=== PATIENT | male | born 1935 | race Caucasian/White ===

== ENCOUNTER 2017-03-29 18:24 | Inpatient (IN) | payer OTHER ==
[~2017-03-29] VITALS: Ht 172.7 cm; Wt 89.4 kg
--- NOTE | 2017-03-29 18:46 | ED GENERAL ADULT ---
See Addendum History of Present Illness General Chief Complaint: General Adult Stated Complaint: BIBA FOR WEAKNESS, NAUSEA Source: patient, family, old records, EMS Exam Limitations: no limitations Vital Signs & Intake/Output Vital Signs & Intake/Output Vital Signs Date Time Temp Pulse Resp B/P B/P Pulse O2 O2 Flow FiO2 Mean Ox Delivery Rate 04/06 0000 Room Air 04/05 2151 75 110/64 04/05 2143 94 Room Air Room Air 04/05 2138 98.3 76 18 110/64 95 04/05 1422 97.6 74 20 108/62 96 Room Air 04/05 1013 76 110/62 04/05 1013 76 110/62 04/05 0600 98.1 76 18 110/62 96 Room Air ED Intake and Output 04/06 0000 04/05 1200 Intake Total 1875 446 Output Total 2850 780 Balance -975 -334 Intake, IV 125 206 Intake, Oral 1750 240 Number 0 Bowel Movements Output, Other 30 Output, Urine 2850 750 Patient 199 lb Weight Allergies Coded Allergies: NO KNOWN ALLERGIES (12/30/12) Reconcile Medications Atorvastatin Calcium (Lipitor) 80 MG TABLET 1 TAB PO QPM CHOLESTEROL ( Reported) Carvedilol (Coreg) 6.25 MG TABLET 1 TAB PO BID HEART/BP (Reported) Dofetilide (Tikosyn) 250 MCG CAPSULE 1 CAP PO BID HEART (Reported) Furosemide (Lasix) 20 MG TABLET 1 TAB PO QAM DIURETIC (Reported) Isosorbide Mononitrate (Isosorbide Mononitrate ER) 60 MG TAB.ER.24H 1 TAB PO DAILY HEART (Reported) Lisinopril 2.5 MG TABLET 1 TAB PO QAM BP (Reported) Magnesium Oxide (Magnesium) 400 MG CAPSULE 1 CAP PO QAM SUPPLEMENT (Reported) Multivit-Min/FA/Lycopen/Lutein (A Thru Z Select Multivit Tab) 500 MCG-300 MCG- 250 MCG TABLET 1 TAB PO DAILY SUPPLEMENT (Reported) Warfarin Sodium (Coumadin) 4 MG TABLET 1 TAB PO MoTuWeThFrSa BLOOD THINNER ( Reported) Warfarin Sodium 2 MG TABLET 1 TAB PO QSUN BLOOD THINNER (Reported) Triage Note: RECEIVED 81 YO MALE BIBA FROM HOME WITH C/O SEVERE WEAKNESS STARTED TODAY, WORSE WITH STANDING WITH LIGHTHEADEDNESS. PT PALE, DIAPHORETIC, DENIES CP OR SOB. PT RECEIVED ONE S/L NTG FROM SON WITH NO EFFECT ON SYMPTOMS. B/P 90/50 AFTER RECEIVING NTG. PT REPORTS 2 EPISODES OG PAIN BELOW STERNAL NOTCH, ONCE YESTERDAY AND ONCE 2 WEEKS AGO FOR WHICH HE WAS SEEN AT [facility] Triage Nurses Notes Reviewed? yes Onset: Gradual Duration: day(s): (2) Timing: remote history Injury Environment: home Severity: moderate Severity Numbers: 6 No Modifying Factors: none HPI: Patient is a 81-year-old male with extensive cardiac history, CAD, aortic stenosis presenting to the emergency department with chief complaint of generalized malaise and weakness, episode of chest pain that lasted several hours yesterday. He describes the pain as epigastric, achy and heavy. Pain went away after he went to bed. No chest pain today. Reports shortness of breath is worse with exertion. Today nature though which seemed to improve symptoms. Denies any increasing lower Shoney's swelling. Family reports that he did cut the lawn outside yesterday in the heat and symptoms started afterwards. Denies any fevers or chills. Positive nausea no vomiting. No current chest pain. Yesterday the chest pain did radiate to the back as well. Denies any change in bowel habits. Last bowel movement was yesterday. Denies any urinary frequency urgency or dysuria. (LEONARDA CRYSTAL) Past History Travel History Traveled to [place] past 21 day No Medical History Any Pertinent Medical History? see below for history Neurological: NONE EENT: NONE Cardiovascular: AFIB, CAD, hypertension Gastrointestinal: NONE Hepatic: NONE Renal: NONE Musculoskeletal: NONE Psychiatric: NONE Endocrine: NONE Blood Disorders: NONE Cancer(s): NONE History of MRSA: No History of VRE: No History of CDIFF: No Pneumonia Vaccine: 09/06/11 Tetanus Vaccine: Psychosocial History Who do you live with Spouse Services at Home None What is your primary language Czech Tobacco Use: Quit >30 days ago Family History Hx Contributory? No (LEONARDA CRYSTAL) Surgical History Surgical History: non-contributory (ANGEL SARMIENTO,PRECIOUS Christopher) Review of Systems Review of Systems Constitutional: Reports: malaise, weakness. Comments Review of systems: See HPI, All other systems negative. Constitutional, no weight loss HEENT: No visual changes no sore throat Cardiovascular: No orthopnea or ankle swelling Skin, no jaundice no rashes Respiratory: No sputum or hemoptysis GI: no vomiting : No dysuria No hematuria Muscle skeletal: no neck pain, Neurologic: No numbness no confusion, no headaches Psych: No stress anxiety or depression,. Heme/endocrine: No bruising no bleeding no polyuria or polydipsia Immunology: No splenectomy or history of AIDS (LEONARDA CRYSTAL) Physical Exam Physical Exam General Appearance: alert, awake, mild distress Comments: Well-developed well-nourished person in no acute distress HEENT: . Pupils equally round and reactive to light and accommodation. Nose is atraumatic. External auditory canal and Tympanic membranes clear. Pharynx normal. No swelling or edema. Moist oromucosa. Neck: Supple, no lymphadenopathy, normal range of motion without pain or tenderness Back: Nontender Cardiovascular: Regular rate and rhythms , positive murmur auscultated along the left sternal border consistent with aortic stenosis, normal JVP Respiratory: Chest nontender. Mild to moderate respiratory distress.positive increased work of breathing .breath sounds slightly diminished to auscultation bilaterally Abdomen: Soft, nontender nondistended, no appreciable organomegaly. Normal bowel sounds. No ascites, no rebound or guarding. Old vertical surgical scar extending from the chest into the abdomen, no surrounding erythema or edema. Nontender to palpation. No palpable hernias. Extremity: No edema, no calf tenderness to palpation, normal and equal pulses. Able to move all extremities without difficulties or pain. Lapidary Apprentice strength is equal and symmetric bilaterally. Neuro: Alert oriented x3, motor sensory normal, cranial nerves II through XII grossly intact. Skin: No appreciable rash on exposed skin, slightly diaphoretic. Psych: Mood and affect is normal, memory and judgment is normal. (LEONARDA CRYSTAL) Core Measures ACS in differential dx? No CVA/TIA Diagnosis: No Severe Sepsis Present: Yes BC x2: Yes Lactic Acid x2: Yes IV ABX Broad Spectrum: Yes NS/LR Started: Yes Septic Shock Present: Yes BC x2: Yes Lactic Acid: Yes IV ABX Broad Spectrum: Yes Focused Exam Completed: Yes NS/LR 30ml/kg w/in 3hrs: Yes IV Vasopressors started: No Comment: no pressors due to response to FFP (ANGEL SARMIENTO,PRECIOUS Christopher) Progress Differential Diagnoses I considered the following diagnoses in my evaluation of the patient: ACS, PE, CHF, dehydration, electrolyte abnormality, pneumonia, bronchitis, SEPSIS, UTI Plan of Care: Orders Procedure Date/time Status PROTHROMBIN TIME 04/06 0600 Active PARTIAL THROMBOPLASTIN TIME 04/06 0000 Active PARTIAL THROMBOPLASTIN TIME 04/05 1030 Complete RT RE-EVALUATION 04/05 UNK Complete Gait Training 04/05 UNK Complete Current Medications Sig/Violetta Start time Last Medication Dose Stop Time Status Admin Senna/Docusate Sodium 2 TAB DAILY 04/05 1000 AC 04/05 (Senokot S) 1014 Oxycodone/ 1 TAB BID PRN 04/04 1915 AC Acetaminophen (Percocet) Carvedilol 12.5 MG BID 04/03 1000 AC 04/05 (Coreg) 2151 Ceftriaxone Sodium 2,000 MG DAILY 04/03 1000 AC 04/05 (Rocephin) 1014 Furosemide 20 MG 0730,1630 04/02 0730 AC 04/05 (Lasix) 1800 Oxycodone HCl 5 MG Q12 04/01 2200 AC 04/05 (Roxicodone) 2151 Polyethylene Glycol 17 GM DAILY 04/01 1000 AC 04/05 (Miralax) 1022 Docusate Sodium 100 MG BID 03/31 2200 AC 04/05 (Colace) 2151 Isosorbide 60 MG DAILY 03/31 1000 AC 04/05 Mononitrate 1013 (Imdur) Melatonin 5 MG AT BEDTIME 03/30 2200 AC 04/05 (Melatonin) 2151 Dofetilide 250 MCG BID 03/30 1200 AC 04/05 (Tikosyn 250 MCG) 2151 Albuterol Sulfate 3 ML Q4H PRN 03/30 0830 AC 04/01 (Proventil) 0550 Acetaminophen 650 MG Q6P PRN 03/30 0045 AC 04/01 (Tylenol) 0839 Laboratory Tests 04/05/17 1155: APTT 78 H 04/05/17 0320: PT 41.2 H, INR 3.98 H 04/05/17 0320: APTT 85 H, CBC w Diff NO MAN DIFF REQ, RBC 3.70 L, MCV 91.2, MCH 30.5, RDW 13.7, MPV 8.3, Gran % 73.6, Lymphocytes % 9.6 L, Monocytes % 12.2 H, Eosinophils % 4.3, Basophils % 0.3, Absolute Granulocytes 7.8 H, Absolute Lymphocytes 1.0 L, Absolute Monocytes 1.3 H, Absolute Eosinophils 0.5, Absolute Basophils 0, PUBS MCHC 33.4 Diagnostic Imaging: Viewed by Me: Radiology Read. Discussed w/RAD: Radiology Read. Initial ED EKG: ventricular paced rhythm 110 Hand-Off Endorsed To: PRECIOUS ALDANA MD Comments: 03/29/2017 8:13:20 PM patient care turned over to Dr. Aldana as patient is critical. Positive troponin, hypotensive. Patient will likely be admitted to the ICU. Elevated white blood cell count, source unknown at this time. Patient currently afebrile. Page put out to Dr. Fitzgerald. 03/29/2017 9:03:[address] Fitzgerald's he will consult with the patient in the morning. Trend EKGs and troponins. No clicks aversive infection at this time. Pending CTA. (ANT GANDHI,LEONARDA) Differential Diagnoses I considered the following diagnoses in my evaluation of the patient: Diagnostic Imaging: Viewed by Me: CT Scan. Discussed w/RAD: CT Scan. Radiology Impression: abd/pelvic ct.... distended gall bladder c/w cholecystitis... PATIENT: DAYANA HERRING PRESENT AGE: 81 PATIENT ACCOUNT NO: [id number] : 37 LOCATION: [facility] ORDERING PHYSICIAN: LEONARDA GANDHI SERVICE DATE: 03/29/17 EXAM TYPE: CAT - CT ABD & PELVIS ANGIOGRAM EXAMINATION: CT ANGIOGRAM ABDOMEN AND PELVIS CLINICAL INFORMATION: Chest pain and back pain. COMPARISON: Same day chest CTA. TECHNIQUE : Multiple axial images were obtained through the abdomen and pelvis following the administration of 95 mL of Optiray 320 intravenous contrast. Images were reviewed on a dedicated 3-D workstation. DLP: 1432 mGy-cm FINDINGS: The liver is of normal size and attenuation without focal mass lesions. As stated in the chest CTA report, the gallbladder is distended with wall thickening and pericholecystic fluid. The common duct is not dilated. The pancreas, spleen, adrenal glands are unremarkable. Both kidneys are of normal size and attenuation without hydronephrosis or nephrolithiasis. Following the administration of IV contrast, prompt symmetric nephrograms are displayed. There is fat stranding anterior to the right kidney which could be related to the pericholecystic fluid present superiorly. There is sigmoid diverticulosis without evidence of diverticulitis. Otherwise, unremarkable unopacified loops of small and large bowel are identified. There is no pelvic free fluid. The urinary bladder is nearly empty. There are bilateral fat-containing inguinal hernias. The abdominal aorta is of normal caliber. No aortic dissection is identified. There is no para -aortic fluid. IMPRESSION: No evidence for aortic dissection. Distended gallbladder with wall thickening and pericholecystic fluid concerning for cholecystitis. Consider correlation with ultrasound for further tissue characterization. Sigmoid diverticulosis without evidence of diverticulitis. DICTATED BY: MARTELL SEAY MD DATE/TIME DICTATED:03/29/172300 EXAMINING CHAIR ASSEMBLER:COLE DATE/TIME TRANSCRIBED:03/29/172300 CONFIDENTIAL, DO NOT COPY WITHOUT APPROPRIATE AUTHORIZATION. <Electronically signed in Other Vendor System> SIGNED BY: MARTELL SEAY MD 03/29/17 8173 (ANGEL SARMIENTO,PRECIOUS Christopher) Departure Departure Disposition: STILL A PATIENT Condition: Stable Referrals: SONYA SARMIENTO,ROSA Zarate (PCP/Family) Departure Forms: Customer Survey General Discharge Information Admission Note Spoke With: ELVA GOODWIN MD Documentation of Exam: Documentation of any treatments & extenuating circumstances including Concerns Regarding Discharge (functional status, medication knowledge or non-compliance, living conditions, etc.) that warrant an admission rather than observation: Patient requiring IV antibiotics, IV fluids, may require IV pressors standing blood pressure response. Patient requiring ICU level care. discharge at this time is harmful for patient. (LEONARDA CRYSTAL) Departure Clinical Impression Primary Impression: Elevated troponin Secondary Impressions: Cholecystitis, Shock PA/DIRECTOR MEDICAL SAFETY Co-Sign Statement Statement: ED Attending supervision documentation- [x] I saw and evaluated the patient. I have also reviewed all the pertinent lab results and diagnostic results. I agree with the findings and the plan of care as documented in the PA's/DIRECTOR MEDICAL SAFETY's documentation. pt signed out to me. see notes above. [] I have reviewed the ED Record and agree with the PA's/DIRECTOR MEDICAL SAFETY's documentation. [] Additions or exceptions (if any) to the PAs/DIRECTOR MEDICAL SAFETY's note and plan are summarized below: [] (ANGEL SARMIENTO,PRECIOUS Christopher) Critical Care Note Critical Care Note Critical Care Time: 30-74 min Comments: 03/29/17, 23:[address] fitzgerald (cards), dr. ascencio (icu), dr. lopez (gen surg)... pt with cholecystitis on ct angio.... pt covered broadly but will add flagyl for anerobes... will reverse coumadin, giving vitamin k and ffp... pt mentating well... will consider central line after inr reversed. 03/30/17, 4:20am... pt doing well after ffp... sbp 104 with pulse in 70's... will continue to monitor. (ANGEL SARMIENTO,PRECIOUS Christopher) currently afebrile. Page put out to Dr. Fitzgerald. 03/29/2017 9:03:[address] Fitzgerald's he will consult with the patient in the morning. Trend EKGs and troponins. No clicks aversive infection at this time. Pending CTA. (ANT GANDHI,LEONARDA) Differential Diagnoses I considered the following diagnoses in my evaluation of the patient: Diagnostic Imaging: Viewed by Me: CT Scan. Discussed w/RAD: CT Scan. Radiology Impression: abd/pelvic ct.... distended gall bladder c/w cholecystitis... PATIENT: DAYANA HERRING PRESENT AGE: 81 PATIENT ACCOUNT NO: [id number] : 37 LOCATION: [facility] ORDERING PHYSICIAN: LEONARDA GANDHI SERVICE DATE: 03/29/17 EXAM TYPE: CAT - CT ABD & PELVIS ANGIOGRAM EXAMINATION: CT ANGIOGRAM ABDOMEN AND PELVIS CLINICAL INFORMATION: Chest pain and back pain. COMPARISON: Same day chest CTA. TECHNIQUE : Multiple axial images were obtained through the abdomen and pelvis following the administration of 95 mL of Optiray 320 intravenous contrast. Images were reviewed on a dedicated 3-D workstation. DLP: 1432 mGy-cm FINDINGS: The liver is of normal size and attenuation without focal mass lesions. As stated in the chest CTA report, the gallbladder is distended with wall thickening and pericholecystic fluid. The common duct is not dilated. The pancreas, spleen, adrenal glands are unremarkable. Both kidneys are of normal size and attenuation without hydronephrosis or nephrolithiasis. Following the administration of IV contrast, prompt symmetric nephrograms are displayed. There is fat stranding anterior to the right kidney which could be related to the pericholecystic fluid present superiorly. There is sigmoid diverticulosis without evidence of diverticulitis. Otherwise, unremarkable unopacified loops of small and large bowel are identified. There is no pelvic free fluid. The urinary bladder is nearly empty. There are bilateral fat-containing inguinal hernias. The abdominal aorta is of normal caliber. No aortic dissection is identified. There is no para -aortic fluid. IMPRESSION: No evidence for aortic dissection. Distended gallbladder with wall thickening and pericholecystic fluid concerning for cholecystitis. Consider correlation with ultrasound for further tissue characterization. Sigmoid diverticulosis without evidence of diverticulitis. DICTATED BY: MARTELL SEAY MD DATE/TIME DICTATED:03/29/172300 EXAMINING CHAIR ASSEMBLER:COLE DATE/TIME TRANSCRIBED:03/29/172300 CONFIDENTIAL, DO NOT COPY WITHOUT APPROPRIATE AUTHORIZATION. <Electronically signed in Other Vendor System> SIGNED BY: MARTELL SEAY MD 03/29/17 [id number] (PRECIOUS ALDANA MD) Departure Departure Disposition: STILL A PATIENT Condition: Stable Referrals: SONYA SARMIENTO,ROSA Zarate (PCP/Family) Departure Forms: Customer Survey General Discharge Information (LEONARDA CRYSTAL) Departure Clinical Impression Primary Impression: Elevated troponin Secondary Impressions: Cholecystitis, Shock PA/DIRECTOR MEDICAL SAFETY Co-Sign Statement Statement: ED Attending supervision documentation- [x] I saw and evaluated the patient. I have also reviewed all the pertinent lab results and diagnostic results. I agree with the findings and the plan of care as documented in the PA's/DIRECTOR MEDICAL SAFETY's documentation. pt signed out to me. see notes above. [] I have reviewed the ED Record and agree with the PA's/DIRECTOR MEDICAL SAFETY's documentation. [] Additions or exceptions (if any) to the PAs/DIRECTOR MEDICAL SAFETY's note and plan are summarized below: [] (ANGEL SARMIENTO,PRECIOUS Christopher) Critical Care Note Critical Care Note Critical Care Time: 30-74 min Comments: 03/29/17, 23:[address] fitzgerald (cards), dr. ascencio (icu), dr. lopez (gen surg)... pt with cholecystitis on ct angio.... pt covered broadly but will add flagyl for anerobes... will reverse coumadin, giving vitamin k and ffp... pt mentating well... will consider central line after inr reversed. 03/30/17, 4:20am... pt doing well after ffp... sbp 104 with pulse in 70's... will continue to monitor. (ANGEL SARMIENTO,PRECIOUS Christopher)
[2017-03-29 19:13] LABS: ABSOLUTE BASOPHIL COUNT 0.1 /CUMM (0.0-0.2); ABSOLUTE EOSINOPHIL COUNT 0 /CUMM (0.0-0.7); ABSOLUTE GRANULOCYTE CT 22.8 /CUMM (1.4-6.5); ABSOLUTE LYMPH COUNT 0.3 /CUMM (1.2-3.4); ABSOLUTE MONOCYTE COUNT 0.9 /CUMM (0.10-0.60); BASOPHIL % 0.2 % (0.0-2.0); EOSINOPHIL % 0 % (0-5); GRANULOCYTE % 94.8 % (42.2-75.2); HEMATOCRIT 39.5 % (42-52); MEAN CORPUSCULAR HGB 30.9 PG (27.0-31.0); MEAN CORPUSCULAR HGB CONC 33.6 G/DL (33.0-37.0); MEAN CORPUSCULAR VOLUME 92.1 FL (80.0-94.0); MEAN PLATELET VOLUME 7.7 FL (7.4-10.4); PLATELET COUNT 242 /CUMM (130-400); RBC DISTRIBUTION WIDTH 13.4 % (11.5-14.5); RED BLOOD CELL CT 4.29 /CUMM (4.70-6.10); WHITE BLOOD CELL COUNT 24.1 /CUMM (4.8-10.8)
[2017-03-29 19:15] LABS: PTT 50 SEC (25-37)
[2017-03-29 19:17] LABS: PT 54.5 SEC (9.4-12.5)
--- NOTE | 2017-03-29 19:17 | NUR ---
CRITICAL TEST RESULTS [id number] DAYANA HERRING 81 M TESTS AND RESULTS: PT 54.5, INR 5.28 Results received and read back by: COY MAY Results received date and time: 03/29/171916 The following provider was notified of the results, and read the results back: VANIA GANDHI Notified date and time: 03/29/17 at 1918
--- NOTE | 2017-03-29 19:52 | NUR ---
PA AWARE OF BP, 2ND LITER OF FLUIDS INFUSING
--- NOTE | 2017-03-29 19:56 | RADIOLOGY REPORT ---
EXAMINATION: CHEST 1 VIEW CLINICAL INFORMATION: Cardiomegaly. Follow-up. COMPARISON: 11/12/2015 TECHNIQUE: An AP view of the chest is provided. FINDINGS: The cardiac silhouette is enlarged, but stable. Pacer leads are in unchanged position. Intact midline sternal wires are present. The mediastinal and hilar contours are unremarkable. There are neither pleural effusions nor pneumothoraces. There are no consolidations. The osseous structures are unremarkable. IMPRESSION: Stable cardiomegaly. No acute airspace disease.
--- NOTE | 2017-03-29 20:05 | NUR ---
PT REPORTS THAT HE CUT THE LAWN YESTEWRDAY AND HAD STERNAL PAIN THAT RADIATED TO BACK AFTER HE WAS DONE. TODAY REPORTED THAT HE WAS WEAKER THAN USUAL AND VERY SWEATY. PER EMS SON HAD GIVEN PT A NITRO PILL PRIOR TO THEIR ARRIAVL. PT WAS PLACED ON MONITOR, EKG COMPLETED. PT WAS PROFUSELY DIAPHORETIC UPON ARRIVAL AND HAD SMALL AMT OF VOMIT ON BEHZAD SHIRT THAT HE WAS UNAWARE OF.
--- NOTE | 2017-03-29 20:29 | NUR ---
DR ORTIZ IN ROOM
--- NOTE | 2017-03-29 20:29 | NUR ---
RED/YELLOW TUBE SENT FOR URINE
[2017-03-29] MEDS ORDERED: MAGNESIUM400 M1 PO (20:46)
[2017-03-29] MEDS ORDERED: COREG6.25 M1 PO (20:46)
[2017-03-29] MEDS ORDERED: TIKOSYN250 MCG PO (20:46)
[2017-03-29] MEDS ORDERED: LASIX20 M1 PO (20:47)
[2017-03-29] MEDS ORDERED: ISOSORBIDE MONO60 M1 PO (20:48)
[2017-03-29] MEDS ORDERED: WARFARIN SODIUM2 M1 PO (20:49)
[2017-03-29] MEDS ORDERED: COUMADIN4 M1 PO (20:49)
[2017-03-29] MEDS ORDERED: A THRU Z SELEC1 EAC5 PO (20:49)
[2017-03-29] MEDS ORDERED: LISINOPRIL2.5 M1 PO (20:50)
[2017-03-29] MEDS ORDERED: LIPITOR80 M1 PO (20:50)
--- NOTE | 2017-03-29 20:53 | NUR ---
PT TO CT SCAN VIA STRETCHER WITH RN MAC.
--- NOTE | 2017-03-29 21:08 | NUR ---
PT TO AND FROM CT WITH MONITOR AND RN
--- NOTE | 2017-03-29 21:26 | CT SCAN REPORT ---
EXAMINATION: CT AORTIC DISSECTION STUDY CLINICAL INFORMATION: Back pain. Chest pain. Concern for aortic dissection. COMPARISON: Same day chest radiograph. TECHNIQUE: Contiguous helical images of the chest were obtained prior to and following the administration of IV contrast. Multiplanar reconstructions were performed. MIPS were obtained and reviewed. DLP: 1432 mGy-cm. CONTRAST: 95 mL of Optiray 350 were administered without incident. FINDINGS: The heart is of normal size. There is no pericardial effusion. The great vessels are unremarkable. Specifically, there is no pulmonary arterial filling defect. As well, there is no aortic dissection demonstrable. There is no CT evidence for pulmonary embolism. There are no chest wall masses. Review of lung windows demonstrates that there are neither pleural effusions nor pneumothoraces. There are no consolidations. There is dependent bibasilar atelectasis. There are no pulmonary parenchymal nodules. Limited evaluation of the upper abdomen demonstrates a distended gallbladder wall with gallbladder wall thickening measuring approximately 4 mm with mild perinephric stranding. There is no cholelithiasis. IMPRESSION: No CT evidence for aortic dissection or pulmonary embolism. Distended gallbladder with wall thickening and pericholecystic fluid without demonstrable cholelithiasis. Consider correlation with ultrasound for further tissue characterization as the appearance is concerning for cholecystitis.
--- NOTE | 2017-03-29 22:40 | NUR ---
PTS DAUGHTER (ELLIOTT) [phone]
--- NOTE | 2017-03-29 22:59 | Cons- CRCU ---
See Addendum General Information and HPI Consulting Request Date of Consult: 03/29/17 Requested By: ed History of Present Illness: This is a gentleman with significant cardiomyopathy with low ejection fraction with EF of 35%, biventricular pacer, hypertension, hyperlipidemia, coronary artery disease with ischemic cardiomyopathy with CABG and angioplasty in the past, previous history of smoking quit more than 40 years ago with 10-15-pack- year smoking history, came into the hospital because he was feeling weak and abdominal discomfort and lower chest chest discomfort. He did have one episode of vomiting. When he came into the emergency room he was profoundly hypotensive and had required 4-5 L of fluids and his blood pressure was slowly improving. A consult was requested. When I saw him he was sleeping and was complaining of discomfort in upper quadrant right side of the abdomen just below the sternal notch. He was also complaining of mild diaphoresis at home as well. One episodes of vomiting. Upon admission he did have significant fever. He has history of severe cardiomyopathy and atrial fibrillation on warfarin. He is also on Tikosyn and multiple medications for his cardiomyopathy. No significant history suggestive of angina which she had had before but the pain is mostly in below the sternum in the right upper quadrant area. In the emergency room after 4 L of fluids his blood pressure was 90/60 and he was making urine. A Review of systems: See HPI, All other systems negative. Constitutional, no weight loss HEENT: No visual changes no sore throat Cardiovascular: No orthopnea or ankle swelling Skin, no jaundice no rashes Respiratory: No sputum or hemoptysis GI: vomiting abdominal pain : No dysuria No hematuria Muscle skeletal: no neck pain, Neurologic: No numbness no confusion, no headaches Psych: No stress anxiety or depression,. Heme/endocrine: No bruising no bleeding no polyuria or polydipsi Allergies/Medications Allergies: Coded Allergies: NO KNOWN ALLERGIES (12/30/12) Home Med List: Atorvastatin Calcium (Lipitor) 80 MG TABLET 1 TAB PO QPM CHOLESTEROL ( Reported) Carvedilol (Coreg) 6.25 MG TABLET 1 TAB PO BID HEART/BP (Reported) Dofetilide (Tikosyn) 250 MCG CAPSULE 1 CAP PO BID HEART (Reported) Furosemide (Lasix) 20 MG TABLET 1 TAB PO QAM DIURETIC (Reported) Isosorbide Mononitrate (Isosorbide Mononitrate ER) 60 MG TAB.ER.24H 1 TAB PO DAILY HEART (Reported) Lisinopril 2.5 MG TABLET 1 TAB PO QAM BP (Reported) Magnesium Oxide (Magnesium) 400 MG CAPSULE 1 CAP PO QAM SUPPLEMENT (Reported) Multivit-Min/FA/Lycopen/Lutein (A Thru Z Select Multivit Tab) 500 MCG-300 MCG- 250 MCG TABLET 1 TAB PO DAILY SUPPLEMENT (Reported) Warfarin Sodium (Coumadin) 4 MG TABLET 1 TAB PO AD BLOOD THINNER (Reported) Warfarin Sodium 2 MG TABLET 1 TAB PO QSUN BLOOD THINNER (Reported) Review of Systems Review of Systems Constitutional: Reports: see HPI. Past History Travel History Traveled to [place] past 21 day No Medical History Neurological: NONE EENT: NONE Cardiovascular: AFIB, CAD, hypertension Gastrointestinal: NONE Hepatic: NONE Renal: NONE Musculoskeletal: NONE Psychiatric: NONE Endocrine: NONE Blood Disorders: NONE Cancer(s): NONE Surgical History Surgical History: CABG Psychosocial History Services at Home: None Exam & Diagnostic Data Last 24 Hrs of Vital Signs/I&O Vital Signs Date Time Temp Pulse Resp B/P B/P Pulse O2 O2 Flow FiO2 Mean Ox Delivery Rate 03/29 2203 96.9 87 20 80/60 98 Nasal 3.0L Cannula 03/29 2117 98.6 03/29 2116 84/60 03/29 2030 87 20 78/50 98 Nasal 2.0L Cannula 03/29 1951 98.6 94 21 77/48 97 Nasal 2.0L Cannula 03/29 1922 100.8 03/29 1919 97 Room Air 03/29 1833 100.8 110 20 100/50 97 Room Air Last 48 Hrs of Labs/Onofre: Laboratory Tests 03/29/172144: Lactic Acid Cancelled 03/29/172024: Urinalysis LIGHT H, Urine Color ORANG H, Urine Clarity HAZY H, Urine pH 6.0, Ur Specific [place] 1.025, Urine Protein 100 H, Urine Ketones TRACE H, Urine Nitrite POS H, Urine Bilirubin NEG@ICTO, Urine Urobilinogen 1.0, Ur Leukocyte Esterase TRACE H, Ur Microscopic SEDIMENT EXAMINED, Urine RBC RARE, Urine WBC 5 -10 H, Ur Epithelial Cells RARE, Urine Bacteria RARE H, Granular Casts 3-5 H, Urine Hemoglobin TRACE-INTACT H, Urine Glucose NEG 03/29/17 1900: Lactic Acid 1.5 03/29/171899: Anion Gap 11, Estimated GFR > 60, BUN/Creatinine Ratio 20.0, Glucose 94, Calcium 9.0, Total Bilirubin 2.3 H, AST 33, ALT 31, Alkaline Phosphatase 128 H, Troponin I 0.15 *H, Ehm-L-Nfmjjbjhvlu Pept 7010 H, Total Protein 6.2 L, Albumin 3.4 L, Globulin 2.8, Albumin/Globulin Ratio 1.2, CBC w Diff MAN DIFF ORDERED, RBC 4.29 L, MCV 92.1, MCH 30.9, RDW 13.4, MPV 7.7, Gran % 94.8 H, Lymphocytes % 1.2 L, Monocytes % 3.8, Eosinophils % 0, Basophils % 0.2, Absolute Granulocytes 22.8 H, Segmented Neutrophils 92 H, Band Neutrophils 5, Absolute Lymphocytes 0.3 L, Monocytes 3, Absolute Monocytes 0.9 H, Absolute Eosinophils 0, Absolute Basophils 0.1, Platelet Estimate ADEQUATE, Polychromasia 1+, PUBS MCHC 33.6 03/29/171853: PT 54.5 *H, INR 5.28 *H, APTT 50 H Assessment/Plan Impression/Plan: CTA The heart is of normal size. There is no pericardial effusion. The great vessels are unremarkable. Specifically, there is no pulmonary arterial filling defect. As well, there is no aortic dissection demonstrable. There is no CT evidence for pulmonary embolism. There are no chest wall masses. Review of lung windows demonstrates that there are neither pleural effusions nor pneumothoraces. There are no consolidations. There is dependent bibasilar atelectasis. There are no pulmonary parenchymal nodules. Limited evaluation of the upper abdomen demonstrates a distended gallbladder wall with gallbladder wall thickening measuring approximately 4 mm with mild perinephric stranding. There is no cholelithiasis. IMPRESSION: No CT evidence for aortic dissection or pulmonary embolism. Distended gallbladder with wall thickening and pericholecystic fluid without demonstrable cholelithiasis. Consider correlation with ultrasound for further tissue characterization as the appearance is concerning for cholecystitis. Physical Exam General Appearance: alert, awake, mild distress Comments: Well-developed well-nourished person in no acute distress HEENT: . Pupils equally round and reactive to light and accommodation. Nose is atraumatic. External auditory canal and Tympanic membranes clear. Pharynx normal. No swelling or edema. Moist oromucosa. Neck: Supple, no lymphadenopathy, normal range of motion without pain or tenderness Back: Nontender Cardiovascular: Regular rate and rhythms , positive murmur auscultated along the left sternal border consistent with aortic stenosis, normal JVP Respiratory: Chest nontender. Mild to moderate respiratory distress.positive increased work of breathing .breath sounds slightly diminished to auscultation bilaterally Abdomen: Tender to palpation over the right upper quadrant tenderness with mild guarding no appreciable organomegaly. Normal bowel sounds. Extremity: No edema, no calf tenderness to palpation, normal and equal pulses. Able to move all extremities without difficulties or pain. Race Board Attendant strength is equal and symmetric bilaterally. Neuro: Alert oriented x3, motor sensory normal, cranial nerves II through XII grossly intact. Skin: No appreciable rash on exposed skin, slightly diaphoretic. Psych: Mood and affect is normal, memory and judgment is normal. IMPRESSION This is a gentleman with significant cardiomyopathy with low ejection fraction, extensive cardiac history with coronary artery disease with previous CABG and angioplasty, previous AICD, diastolic heart disease, left ventricular hypertrophy, [id number] aortic stenosis, mild mitral regurgitation, atrial fibrillation not on anticoagulation, now comes in with * Significant sepsis with acute cholecystitis clinically and by CT angiogram of the chest did reveal distended gallbladder with thickening of the wall with abdominal pain and discomfort without cholelithiasis rule out acalculous cholecystitis. * Hyper tension related to sepsis * Severe ischemic heart disease with significant cardiomyopathy with low ejection fraction with elevated troponin rule out non-ST segment elevation MD * Paroxysmal atrial fibrillation on antiarrhythmic agent and warfarin with. High INR * Hypertension hyperlipidemia valvular heart disease as noted above RECOMMENDATION * Continue gentle fluid resuscitation * Watch for pulmonary edema * Start high-dose Unasyn * Panculture * And reverse anticoagulation with FFP and give vitamin K subcutaneous * IR consult for consideration for percutaneous cholecystotomy tube * Surgical evaluation * Low threshold for central line placement as he might need pressors * Check lactic acid * Continue to follow liver enzymes BUN/creatinine * Watch for acute pulmonary edema as his ejection fraction is low * Intravenous proton pump inhibitor * Nothing by mouth * Hold Lasix and other antihypertensive agents * Check amylase lipase Prognosis is guarded Patient is critically ill total time spent 45 minutes Consult Acknowledgment - Thank you for your consult request.
--- NOTE | 2017-03-29 23:13 | CT SCAN REPORT ---
EXAMINATION: CT ANGIOGRAM ABDOMEN AND PELVIS CLINICAL INFORMATION: Chest pain and back pain. COMPARISON: Same day chest CTA. TECHNIQUE: Multiple axial images were obtained through the abdomen and pelvis following the administration of 95 mL of Optiray 320 intravenous contrast. Images were reviewed on a dedicated 3-D workstation. DLP: 1432 mGy-cm FINDINGS: The liver is of normal size and attenuation without focal mass lesions. As stated in the chest CTA report, the gallbladder is distended with wall thickening and pericholecystic fluid. The common duct is not dilated. The pancreas, spleen, adrenal glands are unremarkable. Both kidneys are of normal size and attenuation without hydronephrosis or nephrolithiasis. Following the administration of IV contrast, prompt symmetric nephrograms are displayed. There is fat stranding anterior to the right kidney which could be related to the pericholecystic fluid present superiorly. There is sigmoid diverticulosis without evidence of diverticulitis. Otherwise, unremarkable unopacified loops of small and large bowel are identified. There is no pelvic free fluid. The urinary bladder is nearly empty. There are bilateral fat-containing inguinal hernias. The abdominal aorta is of normal caliber. No aortic dissection is identified. There is no para-aortic fluid. IMPRESSION: No evidence for aortic dissection. Distended gallbladder with wall thickening and pericholecystic fluid concerning for cholecystitis. Consider correlation with ultrasound for further tissue characterization. Sigmoid diverticulosis without evidence of diverticulitis.
--- NOTE | 2017-03-29 23:40 | NUR ---
PINK TOP SENT
--- NOTE | 2017-03-29 23:57 | NUR ---
HOUSE STAFF AT BEDSIDE FOR EVALUATION
--- NOTE | 2017-03-30 00:40 | History & Physical ---
JANNIE CUELLAR MD 03/30/17 0040: General Information and HPI History of Present Illness: 81 year old man with past medical history of CAD s/p CABG x5 & BVPM, Aortic stenosis, Atrial Fibrillation on Coumadin, hypertension, and hyperlipidemia brought in by ambulance for evaluation of profound fatigue and epigastric pain. Patient reports two weeks ago he had moderate acute onset epigastric pain similar to todays episodes for which he contacted 911 whom brought him to [place] for evaluation. He reports he was discharged to home from the ED with instruction to follow up with his res habilitation assistant after discharge. The night prior to admission patient reports acute onset moderate/severe epigastric chest pain radiating straight through to his back with associated headache, fever, chills, palpitations, shortness of breath, nausea, and profund fatigue/weakness for which he contacted EMS whom brought him to the [facility] for evaluation. Presently patient complains of fatigue, weakness, mild shortness of breath, and mild abdominal pain but otherwise denies any headache, fever, chills, chest pain , palpitations, shortness of breath, nausea, vomitnig, diarrhea. Allergies/Medications Allergies: Coded Allergies: NO KNOWN ALLERGIES (12/30/12) Home Med list Atorvastatin Calcium (Lipitor) 80 MG TABLET 1 TAB PO QPM CHOLESTEROL ( Reported) Carvedilol (Coreg) 6.25 MG TABLET 1 TAB PO BID HEART/BP (Reported) Dofetilide (Tikosyn) 250 MCG CAPSULE 1 CAP PO BID HEART (Reported) Furosemide (Lasix) 20 MG TABLET 1 TAB PO QAM DIURETIC (Reported) Isosorbide Mononitrate (Isosorbide Mononitrate ER) 60 MG TAB.ER.24H 1 TAB PO DAILY HEART (Reported) Lisinopril 2.5 MG TABLET 1 TAB PO QAM BP (Reported) Magnesium Oxide (Magnesium) 400 MG CAPSULE 1 CAP PO QAM SUPPLEMENT (Reported) Multivit-Min/FA/Lycopen/Lutein (A Thru Z Select Multivit Tab) 500 MCG-300 MCG- 250 MCG TABLET 1 TAB PO DAILY SUPPLEMENT (Reported) Warfarin Sodium (Coumadin) 4 MG TABLET 1 TAB PO MoTuWeThFrSa BLOOD THINNER ( Reported) Warfarin Sodium 2 MG TABLET 1 TAB PO QSUN BLOOD THINNER (Reported) Past History Travel History Traveled to [place] past 21 day No Medical History Neurological: NONE EENT: NONE Cardiovascular: AFIB, aortic stenosis, CAD, hypertension, hyperlipidemia Respiratory: NONE Gastrointestinal: NONE Hepatic: NONE Renal: NONE Musculoskeletal: NONE Psychiatric: NONE Endocrine: NONE Blood Disorders: NONE Cancer(s): NONE History of MRSA: No History of VRE: No History of CDIFF: No Pneumonia Vaccine: 09/06/11 Tetanus Vaccine: Surgical History Surgical History: CABG Past Family/Social History Psychosocial History Services at Home: None Review of Systems Review of Systems Constitutional: Reports: see HPI. Exam & Diagnostic Data Last 24 Hrs of Vital Signs/I&O Vital Signs Date Time Temp Pulse Resp B/P B/P Pulse O2 O2 Flow FiO2 Mean Ox Delivery Rate 03/30 0138 103 80/50 03/30 0103 97.8 78 16 92/58 98 Nasal 2.0L Cannula 03/29 2357 98.0 83 16 84/52 99 Nasal 2.0L Cannula 03/29 2315 97.0 81 20 80/60 98 Nasal 3.0L Cannula 03/29 2203 96.9 87 20 80/60 98 Nasal 3.0L Cannula 03/29 2117 98.6 03/29 2116 84/60 03/29 2030 87 20 78/50 98 Nasal 2.0L Cannula 03/29 1951 98.6 94 21 77/48 97 Nasal 2.0L Cannula 03/29 1922 100.8 03/29 1919 97 Room Air 03/29 1833 100.8 110 20 100/50 97 Room Air Intake & Output 03/30 0800 03/30 0000 03/29 1600 Intake Total 4250 Output Total 50 Balance 4200 Intake, IV 4250 Output, Urine 50 Patient 88.451 kg Weight Weight Estimated Measurement Method Physical Exam General Appearance Alert, Oriented X3, Cooperative, No Acute Distress Skin No Rashes, No Breakdown, No Significant Lesion Skin Temp/Moisture Exam: Warm/Dry Sepsis Skin Exam (color): Normal for Ethnicity HEENT Atraumatic, PERRLA, EOMI, Mucous Membr. moist/pink Neck Supple, No JVD Cardiovascular Normal S1, Normal S2, 2/6 Systolic murmur Lungs Clear to Auscultation, Normal Air Movement Abdomen Normal Bowel Sounds, Soft, No Hepatospenomegaly, No Masses, Mild diffuse abdominal tenderness, Melo sign positive Neurological Normal Speech, Normal Tone, Cranial Nerves 3-12 NL Vascular Normal Pulses, Pulses Symmetrical Last 24 Hrs of Labs/Onofre: Laboratory Tests 03/29/172144: Lactic Acid Cancelled 03/29/172024: Urinalysis LIGHT H, Urine Color ORANG H, Urine Clarity HAZY H, Urine pH 6.0, Ur Specific [place] 1.025, Urine Protein 100 H, Urine Ketones TRACE H, Urine Nitrite POS H, Urine Bilirubin NEG@ICTO, Urine Urobilinogen 1.0, Ur Leukocyte Esterase TRACE H, Ur Microscopic SEDIMENT EXAMINED, Urine RBC RARE, Urine WBC 5 -10 H, Ur Epithelial Cells RARE, Urine Bacteria RARE H, Granular Casts 3-5 H, Urine Hemoglobin TRACE-INTACT H, Urine Glucose NEG 03/29/171899: Lactic Acid 1.5 03/29/171899: Anion Gap 11, Estimated GFR > 60, BUN/Creatinine Ratio 20.0, Glucose 94, Calcium 9.0, Total Bilirubin 2.3 H, AST 33, ALT 31, Alkaline Phosphatase 128 H, Troponin I 0.15 *H, Xyw-P-Rsnvxbzqjky Pept 7010 H, Total Protein 6.2 L, Albumin 3.4 L, Globulin 2.8, Albumin/Globulin Ratio 1.2, Lipase 69, CBC w Diff MAN DIFF ORDERED, RBC 4.29 L, MCV 92.1, MCH 30.9, RDW 13.4, MPV 7.7, Gran % 94.8 H, Lymphocytes % 1.2 L, Monocytes % 3.8, Eosinophils % 0, Basophils % 0.2 , Absolute Granulocytes 22.8 H, Segmented Neutrophils 92 H, Band Neutrophils 5 , Absolute Lymphocytes 0.3 L, Monocytes 3, Absolute Monocytes 0.9 H, Absolute Eosinophils 0, Absolute Basophils 0.1, Platelet Estimate ADEQUATE, Polychromasia 1+, PUBS MCHC 33.6 03/29/171853: PT 54.5 *H, INR 5.28 *H, APTT 50 H Microbiology 03/29 1900 BLOOD: Blood Culture - RECD 03/29 1854 BLOOD: Blood Culture - RECD Diagnostic Data EKG Results HR 110 TX 152 QTc 515 CXR Results SERVICE DATE: 03/29/17 EXAM TYPE: RAD - XRY-PORTABLE CHEST XRAY IMPRESSION: Stable cardiomegaly. No acute airspace disease. SERVICE DATE: 03/29/17 EXAM TYPE: CAT - CT ABD & PELVIS ANGIOGRAM IMPRESSION: No evidence for aortic dissection. Distended gallbladder with wall thickening and pericholecystic fluid concerning for cholecystitis. Consider correlation with ultrasound for further tissue characterization. Sigmoid diverticulosis without evidence of diverticulitis. SERVICE DATE: 03/29/17 EXAM TYPE: CAT - CTA CHEST-AORTIC DISSECTION IMPRESSION: No CT evidence for aortic dissection or pulmonary embolism. Distended gallbladder with wall thickening and pericholecystic fluid without demonstrable cholelithiasis. Consider correlation with ultrasound for further tissue characterization as the appearance is concerning for cholecystitis. Assessment/Plan Assessment: 81 year old man with an extensive cardiovascular history seen for acute onset epigastric pain that radiated straight through to the back. #Acute Cholecystitis #Sepsis #Elevated Troponin #History of CAD s/p CABGx5 #Atrial Fibrillation, on Coumadin #Supratherapeutic INR Patient with and extensive cardiac history complaining of epigastric pain radiating straight through to the back. He was reportedly seen at [facility] two weeks ago for a similar episode for which "ended up being nothing". Vital signs upon initial evaluation were significan for temp 100.8, HR 110, systolic BP 77 for which he meets criteria for sepsis. Lactic acid initially normal. Total bilirubin elevated to 2.3 with alkaline phosphatase 128. WBC/Bands 24.1/5, Hgb/ Hct 13.3/39.5, Plt 242, BUN/Cr 18/0.9, AST/ALT 33/31, BP 7010, INR 5.28. CTA Chest/Abdomen/Pelvis ruled out pulmonary embolism but did identify an enlarged gallbladder with pericholecystic fluid suggestive of acute cholecystitis. Findings were discussed with general surgeon Dr. Shelby by ED staff whom recommened IR intervention with percutaneous cholecystostomy tube placement in AM and reversal of supratherapeutic INR. Patient received Vancomycin/Ceftazidime /Ceftriaxone/Flagyl in the ED in additon to FFP and vitamin K. Patient will be continued on intravenous antibiotics and will be kept NPO in anticipation for the IR procedure in AM. Patient received 5 liters of noraml saline fluid resuscitation in the ED and was continued on maintainence fluids; observe closely for shortness of breath or pulmonary edema. Intubate / place central line urgently if required. -ICU -NPO -Type & Cross -Transfuse 4 units FFP -Vitamin K -Consent for blood products obtained -Trend troponin/EKG until peak, or three sets obtained -Trend lactic acid until normalized, or two negative sets -Unasyn 3g IV Q6H -Protonix 40mg IV QD -Follow up cultures & sensitivites -Cardiology consult with Dr. Llamas in AM, already aware -General Surgery consult with Dr. Shelby in AM, already aware -Percutaneous cholecystostomy placement by IR in AM #Hyperlipidemia #Hypertension -Hold Atorvastatin, Coreg, Dofetilide, Lasix, Isosorbide Mononitrate, Lisinopril -Confirm medication list in AM Pain Plan-Acetaminophen/Oxycodone/Morphine Diet-NPO DVT PPx-ALPS Code Status-DNR As Ranked By This Provider Problem List: 1. Acute cholecystitis 2. Supratherapeutic INR 3. Sepsis 4. Elevated troponin Core Measures/Miscellaneous Acute Coronary Syndrome ACS Diagnosis: No Cerebrovascular Accident CVA/TIA Diagnosis: No Congestive Heart Failure CHF Diagnosis: No VTE (View Protocol) VTE Risk Factors: Acute medical illness, Age > 40, Obesity [facility] prophylaxis d/t: No contraindications No VTE Pharm Prophylaxis d/t: No contraindications VTE Diagnosis: No VTE Type: NONE VTE Confirmed by (Test): NONE Sepsis (View Protocol) Severe Sepsis Present: No Septic Shock Septic Shock Present: No Miscellaneous Documentation Attending Case Discussed With: ELVA GOODWIN MD Primary Care Physician: ROSA HASSAN MD Patient sees these Specialists Dr. Llamas Level of Patient Care: Critical Care (CRI) Consults Needed: 1 Consulting Specialty: Cardiology Consults Needed: 2 Consulting Specialty: General Surgery ELVA GOODWIN 03/30/17 0517: Attending Review Statement Attending Statement Attending MD Statement: examined this patient, discuss w/resident/PA/[employer] MANAGER, agreed w/resident/PA/[employer] SITE MANAGER, reviewed EMR data (avail), reviewed images, amended to note Attending Assessment/Plan: CC : Epigastric pain, lightheadedness PMH: CAD S/P CABG S/P angioplasty, pacemaker biventricular AICD, HTN, HF with reduced ejection fraction, aortic stenosis, HLD Patient brought in ER via EMS for severe fatigue and epigastric pain. Patient describes pain as upper abdominal discomfort, sharp, going to back, associated with chills fever up rotation shortness of breath and nausea. Patient had similar complaints 2 weeks prior when he was a [facility] for evaluation thinking that he may have cardiac event. Patient endorses nausea but denied any vomiting. Vitals: T Max 100.8, HR 110 at arrival improved to 87, RR 20, blood pressure 77/ 48 persistently hypertensive, saturating well on 3 L nasal cannula. On exam: A O 3, cooperative, no acute distress, neck supple, JVD normal, no lymphadenopathy, mucosa dry, no focal neurological deficit, no dependent edema, no obvious skin rashes or inflammation CVS: S1-S2, RRR. RS: Clear to auscultate bilaterally. Abdomen: Tender, guarding, bowel sounds decreased, Melo's sign present Peripheral pulses perfusion normal Labs: WBC 24.1, hemoglobin 13.3, hematocrit 39.5, neutrophils 94%, platelets 242 , sodium 134, bicarbonate 22, anion gap 11, BUN 18 creatinine 0.9, total bilirubin 2.3, AST 33, ALT 31, alkaline phosphatase 128, troponin 0.15, proBNP 7010, albumin 3.4, lipase 69, lactic acid 1.5, INR 5.28 UA hazy, protein 100, ketone trace, positive nitrates, positive leukocyte esterase, granular cast Imaging: CXR: Stable cardiomegaly no acute airspace disease Abdomen and pelvis CTA: No evidence for aortic dissection. Distended gallbladder with wall thickening and pericholecystic fluid concerning for cholecystitis. Consider correlation with ultrasound for further tissue characterization. Sigmoid diverticulosis without evidence of diverticulitis. CTA chest: No CT evidence for aortic dissection or pulmonary embolism. Distended gallbladder with wall thickening and pericholecystic fluid without demonstrable cholelithiasis. Consider correlation with ultrasound for further tissue characterization as the appearance is concerning for cholecystitis. EKG: Paced rhythm A and P 81-year-old male with extensive cardiac history presented in ER for epigastric pain radiating to back. He was tachycardic and hypotensive, JVD normal, abdomen tender with guarding and rigidity, decreased bowel sounds, Melo sign positive. On imaging patient is found to have a calculus cholecystitis. INR was supratherapeutic. Surgery was consulted who suggested INR guided percutaneous drainage of gallbladder. We will admit to ICU, continue gentle hydration given his extensive cardiac history with ejection fraction of 35% and he already received 4 L bolus in ER. INR will be reversed with vitamin K and FFP. + Septic shock + Acute cholecystitis + History of CAD, aortic stenosis, heart failure + NSTEMI probably secondary to demand ischemia and sepsis - Admit to ICU - Nothing by mouth - Reversal of INR with vitamin K and FFP as discussed - Continue gentle hydration at 75 - 100 mL per hour - Maintain map above 60 - Watch for respiratory status for any worsening pulmonary edema patient's proBNP already elevated - Continue broad-spectrum antibiotic either combination of ceftaz and Flagyl or Unasyn - I's and O's strict - Trend lactate - Blood cultures - Anytime decreased urine output patient may need IV pressors - Trend EKG troponin - Inform cardiology regarding reversal of INR - IV Protonix - Hold all antihypertensives, and warfarin - IR consult in a.m. - DVT prophylaxis Alps only - Patient is aware of his critical illness explained to him - Adequate pain control
--- NOTE | 2017-03-30 00:59 | NUR ---
PT MEDICATED PER EMAR WITH VIT K
--- NOTE | 2017-03-30 01:31 | Cons- General Surgery ---
AMANDEEP SCOTT 03/30/17 0117: General Information and HPI Consulting Request Date of Consult: 03/30/17 Requested By: ELVA GOODWIN MD Reason for Consult: Cholecystitis, leukocytosis Source of Information: patient Exam Limitations: no limitations History of Present Illness: Mr. Greene is 81-year-old male with a two-week history of intermittent right upper quadrant abdominal pain. He states that 2 weeks ago this pain sent him to [facility] at which time he was examined and admitted overnight to rule out a cardiac event. He states that he was discharged with a negative workup for cardiac event at that time. Over the last week and a half he states that he has had no abdominal pain until a day and a half ago at which time he had a similar episode which lasted for about 6 hours. Several hours later the pain did return along with weakness that brought him here to the emergency room today. Evaluation revealed a leukocytosis and a CAT scan demonstrating pericholecystic fluid suspicious for cholecystitis. Allergies/Medications Allergies: Coded Allergies: NO KNOWN ALLERGIES (12/30/12) Past History Medical History Neurological: NONE EENT: NONE Cardiovascular: AFIB, CAD, hypertension Gastrointestinal: NONE Hepatic: NONE Renal: NONE Musculoskeletal: NONE Psychiatric: NONE Endocrine: NONE Blood Disorders: NONE Cancer(s): NONE Surgical History Pertinent Surgical History: CABG Psychosocial History Services at Home: None Exam & Diagnostic Data Vital Signs and I&O Vital Signs Date Time Temp Pulse Resp B/P B/P Pulse O2 O2 Flow FiO2 Mean Ox Delivery Rate 03/30 0103 97.8 78 16 92/58 98 Nasal 2.0L Cannula 03/29 2357 98.0 83 16 84/52 99 Nasal 2.0L Cannula 03/29 2315 97.0 81 20 80/60 98 Nasal 3.0L Cannula 03/29 2203 96.9 87 20 80/60 98 Nasal 3.0L Cannula 03/29 2117 98.6 03/29 2116 84/60 03/29 2030 87 20 78/50 98 Nasal 2.0L Cannula 03/29 1951 98.6 94 21 77/48 97 Nasal 2.0L Cannula 03/29 1922 100.8 03/29 1919 97 Room Air 03/29 1833 100.8 110 20 100/50 97 Room Air Intake & Output 03/30 0800 03/30 0000 03/29 1600 07/12 0800 03/29 0000 03/28 1600 Intake Total 4250 Output Total 50 Balance 4200 Intake, IV 4250 Output, Urine 50 Patient 195 lb Weight Weight Estimated Measurement Method Physical Exam General Appearance: alert, awake Head: normal appearance Eyes: Bilateral: PERRL. Respiratory: normal breath sounds Cardiovascular: irregularly irregular Gastrointestinal: normal bowel sounds, distention, tenderness Extremities: no edema Last 24 Hours of Labs: Laboratory Tests 03/29 Chemistry Lactic Acid (0.7 - 2.1 mmol/L) Cancelled 1.5 Urines Urinalysis LIGHT H Urine Color (YEL,AMB,STR) ORANG H Urine Clarity (CLEAR) HAZY H Urine pH (5.0 - 8.0) 6.0 Ur Specific [place] (1.001 - 1.035) 1.025 Urine Protein (NEG,<30 MG/DL) 100 H Urine Ketones (NEG) TRACE H Urine Nitrite (NEG) POS H Urine Bilirubin (NEG) NEG@ICTO Urine Urobilinogen (0.1 - 1.0 EU/dl) 1.0 Ur Leukocyte Esterase (NEG) TRACE H Ur Microscopic SEDIMENT EXAMINED Urine RBC (0 - 5 /HPF) RARE Urine WBC (0 - 2 /HPF) 5-10 H Ur Epithelial Cells (NONE,FEW) RARE Urine Bacteria (NEG/NONE) RARE H Granular Casts (NONE /LPF) 3-5 H Urine Hemoglobin (NEG) TRACE-INTACT H Urine Glucose (N MG/DL) NEG 03/29 185 Chemistry Sodium (137 - 145 mmol/L) 134 L Potassium (3.5 - 5.1 mmol/L) 3.7 Chloride (98 - 107 mmol/L) 102 Carbon Dioxide (22 - 30 mmol/L) 22 Anion Gap (5 - 16) 11 BUN (9 - 20 mg/dL) 18 Creatinine (0.7 - 1.2 mg/dL) 0.9 Estimated GFR (>60 ml/min) > 60 BUN/Creatinine Ratio (7 - 25 %) 20.0 Glucose (65 - 99 mg/dL) 94 Calcium (8.4 - 10.2 mg/dL) 9.0 Total Bilirubin (0.2 - 1.3 mg/dL) 2.3 H AST (17 - 59 U/L) 33 ALT (21 - 72 U/L) 31 Alkaline Phosphatase (< 127 U/L) 128 H Troponin I (<0.11 ng/ml) 0.15 *H [id number] Pept (<125 pg/mL) 7010 H Total Protein (6.3 - 8.2 g/dL) 6.2 L Albumin (3.5 - 5.0 g/dL) 3.4 L Globulin (1.9 - 4.2 gm/dL) 2.8 Albumin/Globulin Ratio (1.1 - 2.2 %) 1.2 Lipase (23 - 300 U/L) 69 Coagulation PT (9.4 - 12.5 SEC) 54.5 *H INR (0.90 - 1.17) 5.28 *H APTT (25 - 37 SEC) 50 H Hematology CBC w Diff MAN DIFF ORDERED WBC (4.8 - 10.8 /CUMM) 24.1 H RBC (4.70 - 6.10 /CUMM) 4.29 L Hgb (14.0 - 18.0 G/DL) 13.3 L Hct (42 - 52 %) 39.5 L MCV (80.0 - 94.0 FL) 92.1 MCH (27.0 - 31.0 PG) 30.9 RDW (11.5 - 14.5 %) 13.4 Plt Count (130 - 400 /CUMM) 242 MPV (7.4 - 10.4 FL) 7.7 Gran % (42.2 - 75.2 %) 94.8 H Lymphocytes % (20.5 - 51.1 %) 1.2 L Monocytes % (1.7 - 9.3 %) 3.8 Eosinophils % (0 - 5 %) 0 Basophils % (0.0 - 2.0 %) 0.2 Absolute Granulocytes (1.4 - 6.5 /CUMM) 22.8 H Segmented Neutrophils (42.2 - 75.2 %) 92 H Band Neutrophils (0.0 - 5.0 %) 5 Absolute Lymphocytes (1.2 - 3.4 /CUMM) 0.3 L Monocytes (1.7 - 9.3 %) 3 Absolute Monocytes (0.10 - 0.60 /CUMM) 0.9 H Absolute Eosinophils (0.0 - 0.7 /CUMM) 0 Absolute Basophils (0.0 - 0.2 /CUMM) 0.1 Platelet Estimate (ADEQUATE) ADEQUATE Polychromasia 1+ PUBS MCHC (33.0 - 37.0 G/DL) 33.6 Imaging Results: SERVICE DATE: 03/29/17 EXAM TYPE: CAT - CT ABD & PELVIS ANGIOGRAM EXAMINATION: CT ANGIOGRAM ABDOMEN AND PELVIS CLINICAL INFORMATION: Chest pain and back pain. COMPARISON: Same day chest CTA. TECHNIQUE: Multiple axial images were obtained through the abdomen and pelvis following the administration of 95 mL of Optiray 320 intravenous contrast. Images were reviewed on a dedicated 3-D workstation. DLP: 1432 mGy-cm FINDINGS: The liver is of normal size and attenuation without focal mass lesions. As stated in the chest CTA report, the gallbladder is distended with wall thickening and pericholecystic fluid. The common duct is not dilated. The pancreas, spleen, adrenal glands are unremarkable. Both kidneys are of normal size and attenuation without hydronephrosis or nephrolithiasis. Following the administration of IV contrast, prompt symmetric nephrograms are displayed. There is fat stranding anterior to the right kidney which could be related to the pericholecystic fluid present superiorly. There is sigmoid diverticulosis without evidence of diverticulitis. Otherwise, unremarkable unopacified loops of small and large bowel are identified. There is no pelvic free fluid. The urinary bladder is nearly empty. There are bilateral fat-containing inguinal hernias. The abdominal aorta is of normal caliber. No aortic dissection is identified. There is no para-aortic fluid. IMPRESSION: No evidence for aortic dissection. Distended gallbladder with wall thickening and pericholecystic fluid concerning for cholecystitis. Consider correlation with ultrasound for further tissue characterization. Sigmoid diverticulosis without evidence of diverticulitis. DICTATED BY: MARTELL SEAY MD DATE/TIME DICTATED:03/29/172300 CURB MACHINE OPERATOR:COLE DATE/TIME TRANSCRIBED:03/29/172300 Assessment/Plan Assessment/Plan Mr. Greene is a 81-year-old male with past medical history of A. fib, CAD, on Coumadin therapy with supratherapeutic INR presents with weakness, leukocytosis, and CAT scan demonstrating very cholecystic fluid consistent with acute cholecystitis. This case was discussed with Dr. Martin Callaway who was under the understanding this patient is to be admitted to the medical service and IR percutaneous drainage of the gallbladder will be done tomorrow. In the event this becomes an acute abdomen situation further discussion could be done at that time related to possible surgical intervention. However at this time Dr. Callaway will defer to the medical service and IR drainage of the gallbladder but will remain available for surgical consultation. Dr. Callaway will evaluate the patient the a.m. to discuss present and future gallbladder treatment. Copies To: MARTIN MILLER MD Consult Acknowledgment - Thank you for your consult request. MARTIN MILLRE MD 04/01/17 0820: General Information and HPI Consulting Request Date of Consult: 03/30/17 Requested By: ELVA GOODWIN MD Source of Information: patient Exam Limitations: none Allergies/Medications Home Med List: Atorvastatin Calcium (Lipitor) 80 MG TABLET 1 TAB PO QPM CHOLESTEROL ( Reported) Carvedilol (Coreg) 6.25 MG TABLET 1 TAB PO BID HEART/BP (Reported) Dofetilide (Tikosyn) 250 MCG CAPSULE 1 CAP PO BID HEART (Reported) Furosemide (Lasix) 20 MG TABLET 1 TAB PO QAM DIURETIC (Reported) Isosorbide Mononitrate (Isosorbide Mononitrate ER) 60 MG TAB.ER.24H 1 TAB PO DAILY HEART (Reported) Lisinopril 2.5 MG TABLET 1 TAB PO QAM BP (Reported) Magnesium Oxide (Magnesium) 400 MG CAPSULE 1 CAP PO QAM SUPPLEMENT (Reported) Multivit-Min/FA/Lycopen/Lutein (A Thru Z Select Multivit Tab) 500 MCG-300 MCG- 250 MCG TABLET 1 TAB PO DAILY SUPPLEMENT (Reported) Warfarin Sodium (Coumadin) 4 MG TABLET 1 TAB PO MoTuWeThFrSa BLOOD THINNER ( Reported) Warfarin Sodium 2 MG TABLET 1 TAB PO QSUN BLOOD THINNER (Reported) Current Medications: Current Medications Sig/[place] Start time Last Medication Dose Route Stop Time Status Admin Acetaminophen 650 MG Q6P PRN 03/30 0045 AC PO Albuterol Sulfate 3 ML Q4H PRN 03/30 0830 AC 04/01 INH 0550 Ampicillin Sodium/ 3,000 MG Q6 03/30 0600 AC 04/01 Sulbactam Sodium IV 0550 Sodium Chloride 100 ML Carvedilol 6.25 MG BID 03/30 1000 AC 03/31 PO 2127 Ceftriaxone Sodium 1,000 MG ONCE ONE 03/31 1330 DC 03/31 IV 03/31 1331 1532 Docusate Sodium 100 MG BID 03/31 2200 AC 03/31 PO 2127 Dofetilide 250 MCG BID 03/30 1200 AC 03/31 PO 2127 Furosemide 20 MG ONCE ONE 03/31 1530 DC 03/31 IV 03/31 1531 1532 Furosemide 20 MG BID 03/30 1000 AC 03/31 IV 2127 Heparin Sodium 2,850 UNIT 0200 04/01 0200 CAN (Porcine) IV 04/01 0500 Heparin Sodium/ 25,000 UNIT Q24H 03/30 2315 AC 04/01 Dextrose IV 0006 Dextrose/Water 500 ML Isosorbide 60 MG DAILY 03/31 1000 AC 03/31 Mononitrate PO 1010 Melatonin 5 MG AT BEDTIME 03/30 2200 AC 03/31 PO 2127 Morphine Sulfate 2 MG Q4P PRN 03/30 0045 AC 03/31 IV 2126 Oxycodone HCl 5 MG Q6H PRN 03/30 0045 AC PO Pantoprazole Sodium 40 MG DAILY 03/30 1000 DC 03/31 IV 1010 Polyethylene Glycol 17 GM DAILY 04/01 1000 AC PO Potassium Chloride 40 MEQ ONCE ONE 04/01 0600 DC 04/01 PO 04/01 0601 0625 Assessment/Plan Assessment/Plan agree with above Consult Acknowledgment - Thank you for your consult request. Attending MD Review Statement Attending Statement Attending MD Statement: examined this patient, discuss w/resident/PA/SUPERVISOR NEWSP[employer]ER DELIVERIES, agreed w/resident/PA/SUPERVISOR NEWSP[employer]ER DELIVERIES, reviewed images
--- NOTE | 2017-03-30 02:16 | NUR ---
PT VITAL CHECK 15 MIN POST FFP 98/58 75 HEARTRATE RR18 TEMP 97.4
--- NOTE | 2017-03-30 03:29 | NUR ---
HOUSE STAFF IN FOR POC
--- NOTE | 2017-03-30 03:38 | NUR ---
FFP FINISHED INFUSING. VSS, HOUSE STAFF AWARE AND HOUSE STAFF PAGED TO LOOK AT REPEAT EKG
--- NOTE | 2017-03-30 04:27 | NUR ---
CRITICAL TEST RESULTS [id number] DAYANA HERRING 81 M TESTS AND RESULTS: TROPONIN 1.14 Results received and read back by: ERON LINARES Results received date and time: 03/30/17 0428 The following provider was notified of the results, and read the results back: DR CEVALLOS Notified date and time: 03/30/17 at 3858
--- NOTE | 2017-03-30 04:42 | NUR ---
DR GOODWIN AWARE OF ELEVATED TROPONIN.
[2017-03-30 05:15] LABS: ABSOLUTE BASOPHIL COUNT 0.1 /CUMM (0.0-0.2); ABSOLUTE EOSINOPHIL COUNT 0 /CUMM (0.0-0.7); ABSOLUTE GRANULOCYTE CT 31.3 /CUMM (1.4-6.5); ABSOLUTE LYMPH COUNT 0.9 /CUMM (1.2-3.4); ABSOLUTE MONOCYTE COUNT 1.9 /CUMM (0.10-0.60); BASOPHIL % 0.1 % (0.0-2.0); EOSINOPHIL % 0 % (0-5); GRANULOCYTE % 91.6 % (42.2-75.2); HEMATOCRIT 34.6 % (42-52); MEAN CORPUSCULAR HGB 30.9 PG (27.0-31.0); MEAN CORPUSCULAR HGB CONC 33.6 G/DL (33.0-37.0); MEAN CORPUSCULAR VOLUME 91.9 FL (80.0-94.0); MEAN PLATELET VOLUME 7.9 FL (7.4-10.4); PLATELET COUNT 206 /CUMM (130-400); RBC DISTRIBUTION WIDTH 13.8 % (11.5-14.5); RED BLOOD CELL CT 3.76 /CUMM (4.70-6.10)
--- NOTE | 2017-03-30 05:18 | Admission Certification ---
Admission Certification Certification Statement - As attending physician, I certify that at the time of - admission, based on clinical presentation, severity of - symptoms, need for further diagnostic testing and - therapeutic interventions, and risk of adverse outcomes - without in-hospital treatment, in my clinical assessment, - this patient requires an acute hospital stay for a minimum - of two nights or longer. I have also considered psychsocial - factors such as support system, advanced age, financial - issues, cognitive issues, and failed out-patient treatments, - past re-admission history, safety of patient, and lack of - compliance as applicable. Specific rationale supporting this admission is: Acute cholecystitis, sepsis
[2017-03-30 05:21] LABS: PT 33.8 SEC (9.4-12.5)
--- NOTE | 2017-03-30 05:38 | NUR ---
REPORT GIVEN TO YENIFER CONNELL ON CRITICAL CARE.
[2017-03-30 05:54] LABS: WHITE BLOOD CELL COUNT 34.1 /CUMM (4.8-10.8)
--- NOTE | 2017-03-30 05:54 | NUR ---
CRITICAL TEST RESULTS [id number] DAYANA HERRING 81 M TESTS AND RESULTS: WBC 34.1 Results received and read back by: LEONARDA MELVIN Results received date and time: 03/30/17 0554 The following provider was notified of the results, and read the results back: HOUSE STAFF Notified date and time: 03/30/17 at 0554
--- NOTE | 2017-03-30 06:01 | NUR ---
FFP UNIT 2 INITIATED.
--- NOTE | 2017-03-30 06:59 | NUR ---
RECEIVED PT FROM ER VIA STRETCHER AT 0630-EKG MONITORING, 02 AT 4LNC, FFP INFUSING. PT PLACED IN BED AND ATTACHED TO BEDSIDE MONITOR. ORIENTATION TO UNIT DONE. PT A/OX3, FOLLOWS COMMANDS. DENIES ANY PAIN AT PRESENT. BREATH SOUNDS CLEAR UPPER LOBES, CRACKLES LOWER LOBES, TACHYPENIC, OCC EXP WHEEZE NOTED. NO COUGH NOTED AT PRESENT. SEE FLOW SHEET FOR VS, 02 SATS, I/O'S. MONITOR SHOWS NSR, NO ECTOPY NOTED AT PRESENT, BP STABLE AT PRESENT. TOLERATING FFP WELL AT PRESENT-NO EVIDENCE OF TRANSFUSION REACTION NOTED AT PRESENT. DENIES ANY CHEST PAIN AT PRESENT-INSTRUCTED PT TO NOTIFY RN OF ANY CHEST PAIN. ABD LARGE, NONTENDER, SLIGHTLY DISTENDED, POSITIVE BOWEL SOUNDS. NPO MAINTAINTED FOR IR GUIDED PERCUTANEOUS CHOLECYSOSTOMY. VOIDING CLEAR MIKAYLA URINE IN URINAL. SKIN INTACT
[2017-03-30 08:00] VITALS: BP 112/70
[2017-03-30 09:05] LABS: PT 25.5 SEC (9.4-12.5)
--- NOTE | 2017-03-30 09:48 | PN- CRCU ---
Subjective HPI/Critical Care Issues: see other note written Objective Current Medications: Current Medications Sig/Violetta Start time Last Medication Dose Route Stop Time Status Admin Acetaminophen 650 MG Q6P PRN 03/30 0045 AC PO Acetaminophen 0 .STK-MED ONE 03/29 1931 DC IV Acetaminophen 1,000 MG ONCE ONE 03/29 1900 DC 03/29 N/A 1 UNIT IV 03/29 1914 1922 Albuterol Sulfate 3 ML Q4H PRN 03/30 0830 AC 03/30 INH 0827 Ampicillin Sodium/ 0 .STK-MED ONE 03/30 0611 DC Sulbactam Sodium .ROUTE Ampicillin Sodium/ 3,000 MG Q6 03/30 0600 AC 03/30 Sulbactam Sodium IV 06 Sodium Chloride 100 ML Azithromycin 500 MG ONCE ONE 03/29 2000 CAN Sodium Chloride 250 ML IV 03/29 2059 Ceftazidime 0 .STK-MED ONE 03/29 2117 DC .ROUTE Ceftazidime 1,000 MG ONCE ONE 03/29 2030 DC 03/29 IV 03/29 Ceftriaxone Sodium 0 .STK-MED ONE 03/29 2002 DC .ROUTE Ceftriaxone Sodium 1,000 MG ONCE ONE 03/29 2000 DC 03/29 IV 03/29 Furosemide 20 MG ONCE ONE 03/30 0830 DC 03/30 IV 03/30 0831 0856 Furosemide 20 MG ONCE ONE 03/30 0745 DC 03/30 IV 03/30 0746 0802 Isosorbide 60 MG ONCE ONE 03/30 0830 DC 03/30 Mononitrate PO 03/30 0831 0940 Metronidazole 500 MG IQ8 03/30 0000 DC 03/30 N/A 1 UNIT IV 0030 Morphine Sulfate 2 MG Q4P PRN 03/30 0045 AC IV Oxycodone HCl 5 MG Q6H PRN 03/30 0045 AC PO Pantoprazole Sodium 40 MG DAILY 03/30 1000 AC 03/30 IV 0940 Phytonadione 10 MG ONCE ONE 03/30 0045 DC 03/30 SC 03/30 0046 0059 Phytonadione 0 .STK-MED ONE 03/29 2333 DC PO Phytonadione 10 MG ONCE ONE 03/29 2315 DC 03/29 PO 03/29 2316 2330 Sodium Chloride 1,000 ML Q13H 03/30 2345 CAN IV Sodium Chloride 1,000 ML Q13H 03/30 0015 AC 03/30 IV 0020 Sodium Chloride 1,000 ML BOLUS ONE 03/29 2215 DC 03/29 IV 03/29 2314 223 Sodium Chloride 1,000 ML BOLUS ONE 03/29 2115 DC 03/29 IV 03/29 Sodium Chloride 1,000 ML BOLUS ONE 03/29 2115 DC 03/29 IV 03/29 Sodium Chloride 1,000 ML BOLUS ONE 03/29 2000 DC 03/29 IV 03/29 Sodium Chloride 1,000 ML BOLUS ONE 03/29 2000 DC 03/29 IV 03/29 Vancomycin HCl 0 .STK-MED ONE 03/29 2118 DC .ROUTE Vancomycin HCl 1,000 MG ONCE ONE 03/29 2030 DC 03/29 Sodium Chloride 250 ML IV 03/29 Laboratory Tests 03/30 03/30 03/30 0845 0507 0314 Chemistry Sodium (137 - 145 mmol/L) 139 Potassium (3.5 - 5.1 mmol/L) 4.6 Chloride (98 - 107 mmol/L) 111 H Carbon Dioxide (22 - 30 mmol/L) 20 L Anion Gap (5 - 16) 8 BUN (9 - 20 mg/dL) 16 Creatinine (0.7 - 1.2 mg/dL) 0.7 Estimated GFR (>60 ml/min) > 60 BUN/Creatinine Ratio (7 - 25 %) 22.9 Lactic Acid (0.7 - 2.1 mmol/L) 0.9 Total Bilirubin (0.2 - 1.3 mg/dL) 1.2 Direct Bilirubin (< 0.4 mg/dL) 0.5 H AST (17 - 59 U/L) 38 ALT (21 - 72 U/L) 31 Alkaline Phosphatase (< 127 U/L) 91 Troponin I (<0.11 ng/ml) 1.62 *H 1.14 *H Total Protein (6.3 - 8.2 g/dL) 5.4 L Albumin (3.5 - 5.0 g/dL) 2.8 L Amylase (30 - 110 U/L) 46 Coagulation PT (9.4 - 12.5 SEC) 25.5 H 33.8 H INR (0.90 - 1.17) 2.45 H 3.26 H Hematology CBC w Diff MAN DIFF ORDERED WBC (4.8 - 10.8 /CUMM) 34.1 *H RBC (4.70 - 6.10 /CUMM) 3.76 L Hgb (14.0 - 18.0 G/DL) 11.6 L Hct (42 - 52 %) 34.6 L MCV (80.0 - 94.0 FL) 91.9 MCH (27.0 - 31.0 PG) 30.9 RDW (11.5 - 14.5 %) 13.8 Plt Count (130 - 400 /CUMM) 206 MPV (7.4 - 10.4 FL) 7.9 Gran % (42.2 - 75.2 %) 91.6 H Lymphocytes % (20.5 - 51.1 %) 2.8 L Monocytes % (1.7 - 9.3 %) 5.5 Eosinophils % (0 - 5 %) 0 Basophils % (0.0 - 2.0 %) 0.1 Absolute Granulocytes (1.4 - 6.5 /CUMM) 31.3 H Segmented Neutrophils (42.2 - 75.2 %) 95 H Band Neutrophils (0.0 - 5.0 %) 1 Absolute Lymphocytes (1.2 - 3.4 /CUMM) 0.9 L Lymphocytes (20.5 - 51.1 %) 2 L Monocytes (1.7 - 9.3 %) 2 Absolute Monocytes (0.10 - 0.60 /CUMM) 1.9 H Absolute Eosinophils (0.0 - 0.7 /CUMM) 0 Absolute Basophils (0.0 - 0.2 /CUMM) 0.1 Platelet Estimate (ADEQUATE) ADEQUATE Polychromasia 1+ Poikilocytosis 2+ Ovalocytes 1+ Jackie Cells 1+ PUBS MCHC (33.0 - 37.0 G/DL) 33.6 Other Body Source Fld Total RBCs Counted (%) 100 03/29 03/29 03/29 [id number] 190 Chemistry Lactic Acid (0.7 - 2.1 mmol/L) Cancelled 1.5 Urines Urinalysis LIGHT H Urine Color (YEL,AMB,STR) ORANG H Urine Clarity (CLEAR) HAZY H Urine pH (5.0 - 8.0) 6.0 Ur Specific [place] (1.001 - 1.035) 1.025 Urine Protein (NEG,<30 MG/DL) 100 H Urine Ketones (NEG) TRACE H Urine Nitrite (NEG) POS H Urine Bilirubin (NEG) NEG@ICTO Urine Urobilinogen (0.1 - 1.0 EU/dl) 1.0 Ur Leukocyte Esterase (NEG) TRACE H Ur Microscopic SEDIMENT EXAMINED Urine RBC (0 - 5 /HPF) RARE Urine WBC (0 - 2 /HPF) 5-10 H Ur Epithelial Cells (NONE,FEW) RARE Urine Bacteria (NEG/NONE) RARE H Granular Casts (NONE /LPF) 3-5 H Urine Hemoglobin (NEG) TRACE-INTACT H Urine Glucose (N MG/DL) NEG 03/29 03/29 1900 1854 Chemistry Sodium (137 - 145 mmol/L) 134 L Potassium (3.5 - 5.1 mmol/L) 3.7 Chloride (98 - 107 mmol/L) 102 Carbon Dioxide (22 - 30 mmol/L) 22 Anion Gap (5 - 16) 11 BUN (9 - 20 mg/dL) 18 Creatinine (0.7 - 1.2 mg/dL) 0.9 Estimated GFR (>60 ml/min) > 60 BUN/Creatinine Ratio (7 - 25 %) 20.0 Glucose (65 - 99 mg/dL) 94 Calcium (8.4 - 10.2 mg/dL) 9.0 Magnesium (1.6 - 2.3 mg/dL) 1.8 Total Bilirubin (0.2 - 1.3 mg/dL) 2.3 H AST (17 - 59 U/L) 33 ALT (21 - 72 U/L) 31 Alkaline Phosphatase (< 127 U/L) 128 H Troponin I (<0.11 ng/ml) 0.15 *H [id number] Pept (<125 pg/mL) 7010 H Total Protein (6.3 - 8.2 g/dL) 6.2 L Albumin (3.5 - 5.0 g/dL) 3.4 L Globulin (1.9 - 4.2 gm/dL) 2.8 Albumin/Globulin Ratio (1.1 - 2.2 %) 1.2 Lipase (23 - 300 U/L) 69 Coagulation PT (9.4 - 12.5 SEC) 54.5 *H INR (0.90 - 1.17) 5.28 *H APTT (25 - 37 SEC) 50 H Hematology CBC w Diff MAN DIFF ORDERED WBC (4.8 - 10.8 /CUMM) 24.1 H RBC (4.70 - 6.10 /CUMM) 4.29 L Hgb (14.0 - 18.0 G/DL) 13.3 L Hct (42 - 52 %) 39.5 L MCV (80.0 - 94.0 FL) 92.1 MCH (27.0 - 31.0 PG) 30.9 RDW (11.5 - 14.5 %) 13.4 Plt Count (130 - 400 /CUMM) 242 MPV (7.4 - 10.4 FL) 7.7 Gran % (42.2 - 75.2 %) 94.8 H Lymphocytes % (20.5 - 51.1 %) 1.2 L Monocytes % (1.7 - 9.3 %) 3.8 Eosinophils % (0 - 5 %) 0 Basophils % (0.0 - 2.0 %) 0.2 Absolute Granulocytes (1.4 - 6.5 /CUMM) 22.8 H Segmented Neutrophils (42.2 - 75.2 %) 92 H Band Neutrophils (0.0 - 5.0 %) 5 Absolute Lymphocytes (1.2 - 3.4 /CUMM) 0.3 L Monocytes (1.7 - 9.3 %) 3 Absolute Monocytes (0.10 - 0.60 /CUMM) 0.9 H Absolute Eosinophils (0.0 - 0.7 /CUMM) 0 Absolute Basophils (0.0 - 0.2 /CUMM) 0.1 Platelet Estimate (ADEQUATE) ADEQUATE Polychromasia 1+ PUBS MCHC (33.0 - 37.0 G/DL) 33.6 Microbiology Date/Time Procedure - Status Source Growth 03/30 0651 Surveillance Culture - RECD UPPER RESP 03/30 0540 Surveillance Culture - CAN GI Cancelled: Cancelled via OE: PT REFUSED 03/30 0507 Urine Culture - RECD URINE ROUT 03/29 1900 Blood Culture - RECD BLOOD 03/29 1854 Blood Culture - RECD BLOOD Vital Signs & I&O Last 24 Hrs of Vitals and I&O: Vital Signs Date Time Temp Pulse Resp B/P B/P Pulse O2 O2 Flow FiO2 Mean Ox Delivery Rate 04/03 620 98.9 79 20 112/64 95 Room Air 04/02 2130 93 Room Air 07/16 2130 99.3 90 24 118/68 93 Room Air 04/02 2125 90 118/68 04/02 2021 96 Room Air 04/02 1459 98.7 76 20 100/58 95 Nasal 2.0L Cannula 04/02 1041 76 132/68 04/02 1038 76 132/68 04/02 1037 76 132/68 Intake & Output 04/03 1600 04/03 0800 04/03 0000 Intake Total 189.6 656.8 Output Total 800 1000 Balance -610.4 -343.2 Intake, IV 189.6 176.8 Intake, Oral 480 Output, Urine 800 1000 Patient 201 lb Weight Impression/Plan Impression/Plan Impression/Plan: CTA The heart is of normal size. There is no pericardial effusion. The great vessels are unremarkable. Specifically, there is no pulmonary arterial filling defect. As well, there is no aortic dissection demonstrable. There is no CT evidence for pulmonary embolism. There are no chest wall masses. Review of lung windows demonstrates that there are neither pleural effusions nor pneumothoraces. There are no consolidations. There is dependent bibasilar atelectasis. There are no pulmonary parenchymal nodules. Limited evaluation of the upper abdomen demonstrates a distended gallbladder wall with gallbladder wall thickening measuring approximately 4 mm with mild perinephric stranding. There is no cholelithiasis. IMPRESSION: No CT evidence for aortic dissection or pulmonary embolism. Distended gallbladder with wall thickening and pericholecystic fluid without demonstrable cholelithiasis. Consider correlation with ultrasound for further tissue characterization as the appearance is concerning for cholecystitis. Physical Exam General Appearance: alert, awake, mild distress Comments: Well-developed well-nourished person in no acute distress HEENT: . Pupils equally round and reactive to light and accommodation. Nose is atraumatic. External auditory canal and Tympanic membranes clear. Pharynx normal. No swelling or edema. Moist oromucosa. Neck: Supple, no lymphadenopathy, normal range of motion without pain or tenderness Back: Nontender Cardiovascular: Regular rate and rhythms , positive murmur auscultated along the left sternal border consistent with aortic stenosis, normal JVP Respiratory: Chest nontender. Mild to moderate respiratory distress.positive increased work of breathing .breath sounds slightly diminished to auscultation bilaterally Abdomen: Tender to palpation over the right upper quadrant tenderness with mild guarding no appreciable organomegaly. Normal bowel sounds. Extremity: No edema, no calf tenderness to palpation, normal and equal pulses. Able to move all extremities without difficulties or pain. Cloth Bleaching Range Operator Chief strength is equal and symmetric bilaterally. Neuro: Alert oriented x3, motor sensory normal, cranial nerves II through XII grossly intact. Skin: No appreciable rash on exposed skin, slightly diaphoretic. Psych: Mood and affect is normal, memory and judgment is normal. IMPRESSION This is a gentleman with significant cardiomyopathy with low ejection fraction, extensive cardiac history with coronary artery disease with previous CABG and angioplasty, previous AICD, diastolic heart disease, left ventricular hypertrophy, [id number] aortic stenosis, mild mitral regurgitation, atrial fibrillation not on anticoagulation, now comes in with * Significant sepsis with acute cholecystitis clinically and by CT angiogram of the chest did reveal distended gallbladder with thickening of the wall with abdominal pain and discomfort without cholelithiasis rule out acalculous cholecystitis. * Hyper tension related to sepsis * Severe ischemic heart disease with significant cardiomyopathy with low ejection fraction with elevated troponin rule out non-ST segment elevation [place] * Paroxysmal atrial fibrillation on antiarrhythmic agent and warfarin with. High INR * Hypertension hyperlipidemia valvular heart disease as noted above RECOMMENDATION * Continue gentle fluid resuscitation * Watch for pulmonary edema * Start high-dose Unasyn * Panculture * And reverse anticoagulation with FFP and give vitamin K subcutaneous * IR consult for consideration for percutaneous cholecystotomy tube * Surgical evaluation * Low threshold for central line placement as he might need pressors * Check lactic acid * Continue to follow liver enzymes BUN/creatinine * Watch for acute pulmonary edema as his ejection fraction is low * Intravenous proton pump inhibitor * Nothing by mouth * Hold Lasix and other antihypertensive agents * Check amylase lipase Prognosis is guarded Patient is critically ill total time spent 45 minutes
--- NOTE | 2017-03-30 10:18 | PN- CRCU ---
Subjective HPI/Critical Care Issues: Still in pain Hemodynamically stable On lasix with adequate diuresis Fatigue Abd pain still persists Surg eval noted Objective Current Medications: Current Medications Sig/Violetta Start time Last Medication Dose Route Stop Time Status Admin Acetaminophen 650 MG Q6P PRN 03/30 0045 AC PO Acetaminophen 0 .STK-MED ONE 03/29 1931 DC IV Acetaminophen 1,000 MG ONCE ONE 03/29 1900 DC 03/29 N/A 1 UNIT IV 03/29 1914 1922 Albuterol Sulfate 3 ML Q4H PRN 03/30 0830 AC 03/30 INH 0827 Ampicillin Sodium/ 0 .STK-MED ONE 03/30 0611 DC Sulbactam Sodium .ROUTE Ampicillin Sodium/ 3,000 MG Q6 03/30 0600 AC 03/30 Sulbactam Sodium IV 06 Sodium Chloride 100 ML Azithromycin 500 MG ONCE ONE 03/29 2000 CAN Sodium Chloride 250 ML IV 03/29 2059 Carvedilol 6.25 MG BID 03/30 1000 AC PO Ceftazidime 0 .STK-MED ONE 03/29 2117 DC .ROUTE Ceftazidime 1,000 MG ONCE ONE 03/29 2030 DC 03/29 IV 03/29 2031 211 Ceftriaxone Sodium 0 .STK-MED ONE 03/29 2002 DC .ROUTE Ceftriaxone Sodium 1,000 MG ONCE ONE 03/29 2000 DC 03/29 IV 03/29 2001 2002 Dextrose/Sodium 1,000 ML Q13H 03/30 1000 AC Chloride IV Furosemide 20 MG BID 03/30 1000 AC IV Furosemide 20 MG ONCE ONE 03/30 0830 DC 03/30 IV 03/30 0831 0856 Furosemide 20 MG ONCE ONE 03/30 0745 DC 03/30 IV 03/30 0746 0802 Isosorbide 60 MG DAILY 03/31 1000 AC Mononitrate PO Isosorbide 60 MG ONCE ONE 03/30 0830 DC 03/30 Mononitrate PO 03/30 0831 0940 Metronidazole 500 MG IQ8 03/30 0000 DC 03/30 N/A 1 UNIT IV 0030 Morphine Sulfate 2 MG Q4P PRN 03/30 0045 AC IV Non-Formulary 0 SEE ADMIN CRITERIA 03/30 1000 UNVr Medication ANY Oxycodone HCl 5 MG Q6H PRN 03/30 0045 AC PO Pantoprazole Sodium 40 MG DAILY 03/30 1000 AC 03/30 IV 0940 Phytonadione 10 MG ONCE ONE 03/30 0045 DC 07 SC 03/30 0046 0059 Phytonadione 0 .STK-MED ONE 03/29 2333 DC PO Phytonadione 10 MG ONCE ONE 03/29 2315 DC / PO 03/29 2316 2330 Sodium Chloride 1,000 ML Q13H 03/30 2345 CAN IV Sodium Chloride 1,000 ML Q13H 03/30 0015 DC 03/30 IV 0020 Sodium Chloride 1,000 ML BOLUS ONE 03/29 2215 DC / IV 03/29 2314 2239 Sodium Chloride 1,000 ML BOLUS ONE 03/29 2115 DC 03/29 IV 03/29 221 210 Sodium Chloride 1,000 ML BOLUS ONE 03/29 2115 DC 03/29 IV 03/29 2214 210 Sodium Chloride 1,000 ML BOLUS ONE 03/29 2000 DC 03/29 IV 03/29 Sodium Chloride 1,000 ML BOLUS ONE 03/29 2000 DC 03/29 IV 03/29 Vancomycin HCl 0 .STK-MED ONE 03/29 2118 DC .ROUTE Vancomycin HCl 1,000 MG ONCE ONE 03/29 2030 DC 03/29 Sodium Chloride 250 ML IV 03/29 Vital Signs & I&O Last 24 Hrs of Vitals and I&O: Vital Signs Date Time Temp Pulse Resp B/P B/P Pulse O2 O2 Flow FiO2 Mean Ox Delivery Rate 03/30 0940 119 127/75 03/30 0838 Nasal 2.0L Cannula 03/30 0837 96 Nasal 2.0L Cannula 03/30 0800 97.8 116 30 112/70 94 Nasal 2.0L Cannula 03/30 0800 94 Nasal 2.0L Cannula 03/30 0709 100 Nasal 4.0L Cannula 03/30 0616 97.3 82 20 98/56 99 Nasal 4.0L Cannula 03/30 0543 96.7 82 20 102/67 98 Nasal 4.0L Cannula 03/30 0509 97.3 74 20 112/56 98 Nasal 4.0L Cannula 03/30 0336 97.1 75 20 102/58 97 Nasal 4.0L Cannula 03/30 0322 97.6 76 20 104/57 96 Nasal 4.0L Cannula 03/30 0138 103 80/50 03/30 0103 97.8 78 16 92/58 98 Nasal 2.0L Cannula 03/29 2357 98.0 83 16 84/52 99 Nasal 2.0L Cannula 03/29 2315 97.0 81 20 80/60 98 Nasal 3.0L Cannula 03/29 2203 96.9 87 20 80/60 98 Nasal 3.0L Cannula 03/29 2117 98.6 / 2116 84/60 / 2030 87 20 78/50 98 Nasal 2.0L Cannula 03/29 1951 98.6 94 21 77/48 97 Nasal 2.0L Cannula 03/29 1922 100.8 03/29 1919 97 Room Air 03/29 1833 100.8 110 20 100/50 97 Room Air Intake & Output 03/30 1600 03/30 0800 03/30 0000 Intake Total 4250 Output Total 300 50 Balance -300 4200 Intake, IV 4250 Number 0 Bowel Movements Output, Urine 300 50 Patient 210 lb 195 lb Weight Weight Bed scale Estimated Measurement Method Impression/Plan Impression/Plan Impression/Plan: CTA The heart is of normal size. There is no pericardial effusion. The great vessels are unremarkable. Specifically, there is no pulmonary arterial filling defect. As well, there is no aortic dissection demonstrable. There is no CT evidence for pulmonary embolism. There are no chest wall masses. Review of lung windows demonstrates that there are neither pleural effusions nor pneumothoraces. There are no consolidations. There is dependent bibasilar atelectasis. There are no pulmonary parenchymal nodules. Limited evaluation of the upper abdomen demonstrates a distended gallbladder wall with gallbladder wall thickening measuring approximately 4 mm with mild perinephric stranding. There is no cholelithiasis. IMPRESSION: No CT evidence for aortic dissection or pulmonary embolism. Distended gallbladder with wall thickening and pericholecystic fluid without demonstrable cholelithiasis. Consider correlation with ultrasound for further tissue characterization as the appearance is concerning for cholecystitis. Physical Exam General Appearance: alert, awake, mild distress Comments: Well-developed well-nourished person in no acute distress HEENT: . Pupils equally round and reactive to light and accommodation. Nose is atraumatic. External auditory canal and Tympanic membranes clear. Pharynx normal. No swelling or edema. Moist oromucosa. Neck: Supple, no lymphadenopathy, normal range of motion without pain or tenderness Back: Nontender Cardiovascular: Regular rate and rhythms , positive murmur auscultated along the left sternal border consistent with aortic stenosis, normal JVP Respiratory: Chest nontender. Mild to moderate respiratory distress.positive increased work of breathing .breath sounds slightly diminished to auscultation bilaterally Abdomen: Tender to palpation over the right upper quadrant tenderness with mild guarding no appreciable organomegaly. Normal bowel sounds. Extremity: No edema, no calf tenderness to palpation, normal and equal pulses. Able to move all extremities without difficulties or pain. Water Resource Manager strength is equal and symmetric bilaterally. Neuro: Alert oriented x3, motor sensory normal, cranial nerves II through XII grossly intact. Skin: No appreciable rash on exposed skin, slightly diaphoretic. Psych: Mood and affect is normal, memory and judgment is normal. IMPRESSION This is a gentleman with significant cardiomyopathy with low ejection fraction, extensive cardiac history with coronary artery disease with previous CABG and angioplasty, previous AICD, diastolic heart disease, left ventricular hypertrophy, [id number] aortic stenosis, mild mitral regurgitation, atrial fibrillation not on anticoagulation, now comes in with * Significant sepsis with acute cholecystitis clinically and by CT angiogram of the chest did reveal distended gallbladder with thickening of the wall with abdominal pain and discomfort without cholelithiasis Highly sugg of acalculous cholecystitis. * Hypotension related to sepsis, now better with IVF * Severe ischemic heart disease with significant cardiomyopathy with low ejection fraction with elevated troponin rule out non-ST segment elevation [place] * Paroxysmal atrial fibrillation on antiarrhythmic agent and warfarin with. High INR * Hypertension hyperlipidemia valvular heart disease as noted above RECOMMENDATION * Watch for pulmonary edema * Start high-dose Unasyn * Panculture * 3 more FFP now and at the end of ffp pt needs to go for a perc merary, as his wbc is rising and has borderline pressure pt absolutely needs decompression of gall bladder and perc merary will be done by IR, pt is willing to get it done despite slighly high inr as the risks are high if he gets worse * Surgical evaluation * Low threshold for central line placement as he might need pressors * Watch for acute pulmonary edema as his ejection fraction is low * Intravenous proton pump inhibitor * Nothing by mouth Prognosis is guarded Discussed with Daughter in detail Patient is critically ill total time spent 36 minutes
--- NOTE | 2017-03-30 10:22 | Cons- Cardiology ---
General Information and HPI Consulting Request Date of Consult: 03/30/17 Requested By: ELVA GOODWIN MD Reason for Consult: Chest/abdominal discomfort, shortness of breath, diaphoresis, etc. History of Present Illness: Mr. Isai Greene is a 81-year-old male with a history of hypertension, dyslipidemia, and coronary, valvular, dysrhythmic/conduction disease and cardiomyopathy (s/p CABG x5 in 09/1992 for angina; positive nuclear stress with subsequent PCI/YONG of the LM and LCx 06/2003; worsening LV function with repeat cath and unsuccessful attemped PCI of LCx 12/2012; moderate-severe MR documented by echo on 12/30/2012 with redo CABG with SVG to LCx and MV repair 02/2013; subsequent atrial flutter s/p atrial flutter ablation and placement of Bi-V/AICD 06/25/2014 and initiation of Tikosyn; PAF with Eliquis; NSVT, aortic stenosis with planned outpatient cardiac catheterization, etc.) who was recently admitted to [facility] following an episode of upper abdominal/chest discomfort with a "negative" evaluation at that time and who presented to the ED last night with hypotension, recurrent diaphoresis, weakness, and lower chest/upper abdominal discomfort, and elevated WBC count with radiographic findings consistent with acute cholecystitis, but also CXR evidence of HF following volume resuscitation, runs of NSVT, and positive troponin I. Allergies/Medications Allergies: Coded Allergies: NO KNOWN ALLERGIES (12/30/12) Home Med List: Atorvastatin Calcium (Lipitor) 80 MG TABLET 1 TAB PO QPM CHOLESTEROL ( Reported) Carvedilol (Coreg) 6.25 MG TABLET 1 TAB PO BID HEART/BP (Reported) Dofetilide (Tikosyn) 250 MCG CAPSULE 1 CAP PO BID HEART (Reported) Furosemide (Lasix) 20 MG TABLET 1 TAB PO QAM DIURETIC (Reported) Isosorbide Mononitrate (Isosorbide Mononitrate ER) 60 MG TAB.ER.24H 1 TAB PO DAILY HEART (Reported) Lisinopril 2.5 MG TABLET 1 TAB PO QAM BP (Reported) Magnesium Oxide (Magnesium) 400 MG CAPSULE 1 CAP PO QAM SUPPLEMENT (Reported) Multivit-Min/FA/Lycopen/Lutein (A Thru Z Select Multivit Tab) 500 MCG-300 MCG- 250 MCG TABLET 1 TAB PO DAILY SUPPLEMENT (Reported) Warfarin Sodium (Coumadin) 4 MG TABLET 1 TAB PO MoTuWeThFrSa BLOOD THINNER ( Reported) Warfarin Sodium 2 MG TABLET 1 TAB PO QSUN BLOOD THINNER (Reported) Review of Systems Review of Systems: A 14 point system review was obtained and was noncontributory, other than as above. Past History Travel History Traveled to [place] past 21 day No Medical History Blood Transfusion Hx: No Neurological: NONE EENT: NONE Cardiovascular: AFIB, aortic stenosis, CAD, hypertension, hyperlipidemia Respiratory: NONE Gastrointestinal: NONE Hepatic: NONE Renal: NONE Musculoskeletal: NONE Psychiatric: NONE Endocrine: NONE Blood Disorders: NONE Cancer(s): NONE Surgical History Surgical History: non-contributory Psychosocial History Where Do You Live? Home Services at Home: None Smoking Status: Former Smoker Exam & Diagnostic Data Vital Signs and I&O Vital Signs Date Time Temp Pulse Resp B/P B/P Pulse O2 O2 Flow FiO2 Mean Ox Delivery Rate 03/30 0940 119 127/75 03/30 0838 Nasal 2.0L Cannula 03/30 0837 96 Nasal 2.0L Cannula 03/30 0800 97.8 116 30 112/70 94 Nasal 2.0L Cannula 03/30 0800 94 Nasal 2.0L Cannula 03/30 0709 100 Nasal 4.0L Cannula 03/30 0616 97.3 82 20 98/56 99 Nasal 4.0L Cannula 03/30 0543 96.7 82 20 102/67 98 Nasal 4.0L Cannula 03/30 0509 97.3 74 20 112/56 98 Nasal 4.0L Cannula 03/30 0336 97.1 75 20 102/58 97 Nasal 4.0L Cannula 03/30 0322 97.6 76 20 104/57 96 Nasal 4.0L Cannula 03/30 0138 103 80/50 03/30 0103 97.8 78 16 92/58 98 Nasal 2.0L Cannula 03/29 2357 98.0 83 16 84/52 99 Nasal 2.0L Cannula 03/29 2315 97.0 81 20 80/60 98 Nasal 3.0L Cannula 03/29 2203 96.9 87 20 80/60 98 Nasal 3.0L Cannula 03/29 2117 98.6 07/ 2116 84/60 / 2030 87 20 78/50 98 Nasal 2.0L Cannula 03/29 1951 98.6 94 21 77/48 97 Nasal 2.0L Cannula 03/29 1922 100.8 03/29 1919 97 Room Air 03/29 183 100.8 110 20 100/50 97 Room Air Intake & Output 03/30 1600 03/30 0800 03/30 0000 03/29 1600 03/29 0800 03/29 0000 Intake Total 4250 Output Total 300 50 Balance -300 4200 Intake, IV 4250 Number 0 Bowel Movements Output, Urine 300 50 Patient 210 lb 195 lb Weight Weight Bed scale Estimated Measurement Method Physical Exam: Well-developed, well-nourished elderly male in mild distress. Vital signs: See above. HEENT: Normocephalic, atraumatic, EOMI, moist mucous membranes. Neck: No JVD, no bruits. Heart: S1, S2 with grade 1-2/6 systolic murmur. No gallop or rub appreciated. PMI laterally displaced and diffuse. Abdomen: Soft, positive bowel sounds, mild right upper quadrant tenderness. Extremities: No edema. Assessment/Plan Assessment/Plan [id number] w/ hx of HTN, HLD, and coronary, valvular, dysrhythmic/conduction disease and cardiomyopathy who was recently admitted to [facility] following an episode of upper abdominal/chest discomfort with a "negative" evaluation at that time and who presented to the ED last night with hypotension, recurrent diaphoresis, weakness, and lower chest/upper abdominal discomfort, and elevated WBC count with radiographic findings consistent with acute cholecystitis, but also CXR evidence of acute on chronic systolic HF following volume resuscitation , runs of NSVT, and positive troponin I. Given evidence of acute cholecystitis the plan will be to proceed with cholecystotomy to be performed by interventional radiology once he has an acceptable INR. Naturally, he will need close ICU follow-up to help manage his multiple cardiac issues. Recommendations: * Proceed with cholecystotomy by interventional radiology for acute cholecystitis when INR within an acceptable range. * Close postoperative ICU monitoring. * Postoperative ECG and serial troponins. * Resume heparin when cleared by IR. * DVT prophylaxis. Further recommendations will follow, Thank you. Consult Acknowledgment - Thank you for your consult request.
--- NOTE | 2017-03-30 10:39 | ULTRASOUND REPORT ---
EXAMINATION: US ABDOMEN LIMITED CLINICAL INFORMATION: Epigastric abdominal pain. Gallstones.. COMPARISON: CT abdomen and pelvis 03/29/2017. TECHNIQUE: Real-time imaging of the right upper quadrant abdominal viscera. FINDINGS: PANCREAS: The visualized portions of the pancreatic head are unremarkable. The tail is largely obscured by gas. LIVER: Normal. The liver demonstrates normal size, contour and echogenicity. No focal lesion or intrahepatic biliary duct dilatation. GALLBLADDER: There is abnormal thickening of the gallbladder wall and a small amount of pericholecystic fluid. Findings are most consistent with acute cholecystitis. COMMON BILE DUCT: Normal in caliber measuring 0.7 cm in diameter. RIGHT KIDNEY: Normal. No hydronephrosis. No renal calculi or focal parenchymal lesions. The kidney measures 13.3 cm in maximum dimension. FREE FLUID: None. IMPRESSION: Findings consistent with acute cholecystitis.
--- NOTE | 2017-03-30 10:58 | RADIOLOGY REPORT ---
EXAMINATION: XR PORTABLE CHEST CLINICAL INFORMATION: Question pulmonary edema. Shortness of breath. Wheezing and crackles. COMPARISON: CT angiogram of the chest 03/29/2017. TECHNIQUE: Portable frontal view of the chest was obtained. FINDINGS: Cardiac leads overlie the chest. There is a left pectoral AICD. Chronic changes of a median sternotomy are noted. The cardiac silhouette is enlarged. Upper mediastinal contours are unremarkable. There is hilar vascular engorgement and increased interstitial markings involving both lungs with a lower lobe predominant distribution. No overt consolidative disease or effusion. No pneumothorax. IMPRESSION: Cardiomegaly with hilar vascular congestion and mild interstitial edema. No overt consolidative disease or effusion.
--- NOTE | 2017-03-30 11:40 | PN- Resident CRCU ---
Subjective HPI/CRCU Issues: This morning patient is alert, awake and oriented. He is complaining of chest discomfort. Denies any nausea, vomiting or abdominal pain. He is passing gas. Objective Vital Signs & I&O Last 8 Hrs of Vitals and I&O: Temperature 100.8-96.9 Pulse 119-76 Respiratory rate 30-16 BP 127-77/75-50 Pulse ox 100-97% Exam General Appearance: well developed/nourished, no apparent distress, alert, awake , anxious Respiratory: b/l crackles and wheezes Cardiovascular: tachycardia Gastrointestinal: normal bowel sounds, soft, mild tender in epigastric area. no gaurding or rigidity. Melo's sign negative Extremities: no edema Current Medications: Current Medications Sig/Violetta Start time Last Medication Dose Route Stop Time Status Admin Acetaminophen 650 MG Q6P PRN 03/30 0045 AC PO Acetaminophen 0 .STK-MED ONE 03/29 1931 DC IV Acetaminophen 1,000 MG ONCE ONE 03/29 1900 DC 03/29 N/A 1 UNIT IV 03/29 1914 1922 Albuterol Sulfate 3 ML Q4H PRN 03/30 0830 AC 03/30 INH 0827 Ampicillin Sodium/ 0 .STK-MED ONE 03/30 0611 DC Sulbactam Sodium .ROUTE Ampicillin Sodium/ 3,000 MG Q6 03/30 0600 AC 03/30 Sulbactam Sodium IV 06 Sodium Chloride 100 ML Azithromycin 500 MG ONCE ONE 03/29 2000 CAN Sodium Chloride 250 ML IV 03/29 2059 Carvedilol 6.25 MG BID 03/30 1000 AC PO Ceftazidime 0 .STK-MED ONE 03/29 2117 DC .ROUTE Ceftazidime 1,000 MG ONCE ONE 03/29 2030 DC 03/29 IV 03/29 2031 211 Ceftriaxone Sodium 0 .STK-MED ONE 03/29 2002 DC .ROUTE Ceftriaxone Sodium 1,000 MG ONCE ONE 03/29 2000 DC 03/29 IV 03/29 Dextrose/Sodium 1,000 ML Q13H 03/30 1000 DC 03/30 Chloride IV 1016 Furosemide 20 MG BID 03/30 1000 AC IV Furosemide 20 MG ONCE ONE 03/30 0830 DC 03/30 IV 03/30 0831 0856 Furosemide 20 MG ONCE ONE 03/30 0745 DC 03/30 IV 03/30 0746 0802 Isosorbide 60 MG DAILY 03/31 1000 AC Mononitrate PO Isosorbide 60 MG ONCE ONE 03/30 0830 DC 03/30 Mononitrate PO 03/30 0831 0940 Metronidazole 500 MG IQ8 03/30 0000 DC 03/30 N/A 1 UNIT IV 0030 Morphine Sulfate 2 MG Q4P PRN 03/30 0045 AC IV Non-Formulary 0 SEE ADMIN CRITERIA 03/30 1000 UNVr Medication ANY Oxycodone HCl 5 MG Q6H PRN 03/30 0045 AC PO Pantoprazole Sodium 40 MG DAILY 03/30 1000 AC 03/30 IV 0940 Phytonadione 10 MG ONCE ONE 03/30 0045 DC 03/30 SC 03/30 0046 0059 Phytonadione 0 .STK-MED ONE 03/29 2333 DC PO Phytonadione 10 MG ONCE ONE 03/29 2315 DC 03/29 PO 03/29 2316 2330 Sodium Chloride 1,000 ML Q13H 03/30 2345 CAN IV Sodium Chloride 1,000 ML Q13H 03/30 0015 DC 03/30 IV 0020 Sodium Chloride 1,000 ML BOLUS ONE 03/29 2215 DC / IV 03/29 2314 2239 Sodium Chloride 1,000 ML BOLUS ONE 03/29 211 DC / IV 03/29 2214 2109 Sodium Chloride 1,000 ML BOLUS ONE 03/29 2115 DC 03/29 IV 03/29 2214 2109 Sodium Chloride 1,000 ML BOLUS ONE 03/29 2000 DC 03/29 IV 03/29 Sodium Chloride 1,000 ML BOLUS ONE 03/29 2000 DC 03/29 IV 03/29 Vancomycin HCl 0 .STK-MED ONE 03/29 2118 DC .ROUTE Vancomycin HCl 1,000 MG ONCE ONE 03/29 2030 DC 03/29 Sodium Chloride 250 ML IV 03/29 Impression/Plan Impression/Problem List Impression: Mr. Isai Greene is a 81-year-old male with a history of hypertension, dyslipidemia, and coronary heart disease/ischemic cardiomyopathy/ LBBB s/p CABG x, Atrial flutter s/p ablation and placement of Bi-V/AICD 2013 and initiation of Tikosyn, also currently on Coumadin, H/O CHF with moderately abnormal left ventricular ejection fraction estimated at 35% (echo ). PROBLEM LIST 1. Sepsis secondary to acute cholecystitis. WBC count is 34.1. Patient is tachycardiac to 119. Blood pressure is stable right now. One set of blood culture growing gram-positive cocci in chains. 2. Positive troponins. Likely secondary to sepsis. Patient was complaining of chest discomfort this morning and diaphoretic. EKG showed paced rhythm but no acute changes. Troponins are trending up (0.15-1.14-1.62). 3. H/O Atrial flutter status post ablation on tikosyn and Coumadin. Holding Coumadin since admission 4. Supratherapeutic INR. 5.28 on admission. Status post 10 mg of subcutaneous vitamin K 2 and 2 units of FFP's. Current INR is 2.45 5. History of congestive heart failure. LVEF 35%. Got 5 L of IV fluid in addition to 2 FFP's total. Now has crackles bilaterally on lung auscultation. Stat chest x-ray showing cardiomegaly with hilar vascular congestion and mild interstitial edema. 6. History of hypertension and dyslipidemia. Holding antihypertensives and statin for now PLAN * Close ICU monitoring * Watch for arrhythmias * DC IV fluids for now * Surgery consult appreciated. Patient needs percutaneous cholecystostomy tube. Plan is for laparoscopic cholecystectomy cystectomy after 3-4 weeks * Cardio consult appreciated * Will start patient on 20 mg IV Lasix twice a day * Continue Tikosyn. Will avoid Quinolones and other medications that increase QTc interval in combination with Tikosyn * Continue Coreg and Lasix with holding parameters. No meds if SBP <100 * GI consult * trend Troponins * Ultrasound guided percutaneous cholecystostomy by IR today * Goal INR < 2. need atlesat 2 more FFPs * After IR procedure Will start patient on heparin drip without bolus * Be cautious with fluids * Continue IV unasyn for now * wait for final blood cultures * Continue GI and DVT prophylaxis * Adequate pain management * NPO * DNI Problem List: 1. Cholecystitis 2. Elevated troponin 3. Sepsis Pain Ratin Tomorrow's Labs & Rationales: cbc,icu bundle Plan DVT/Prophylaxis: mechanical, pharmacological
--- NOTE | 2017-03-30 13:35 | NUR ---
Patient is alert and oriented x's 3, able to follow commands and answer questions appropriately. LCW pacer AICD in place and he is in a paced rhythem with a HR= 80-120's. Hx of a-fib on coumadin at home. 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 + Troponins this admission 1.62 with a next level due at 1500 with EKG. Multiple runs of v-tach and multifocal pvc's. SBP: 100-130's. C/o intermittent chest tightness but none at this time. Pulses palpable. Currently on 2L nc, O2 sats 92-96%. At 0800 patient received IV lasix 20mg x's 2 doses for increased shortness of breath, tachypnea and crackles at the bilateral bases. An audible wheeze was also noted. A dutta was also placed at this time for strict I+O. Patient is s/p 5L IVF and 2 units of FFP. A TRC was also ordered and he received a breathing treatment. Breathing currently appears improved from previous assessment at 0800. Abdomen is soft with + bowel sounds. RUQ tenderness with palpation. ABD ultrasound completed and + for cholecystitis. Remains NPO for a anticipated merary tube placement later this afternoon once INR stable. Dutta is draining clear yellow urine. Skin appears intact with no areas of pressure injury noted. Dr. fitzgerald and Dr. Blackwell in to see patient and plan of care explained to pt and family. IR has been notified of procedure. Per Dr. Blackwell pt is to receive 3 additional units of FFP and the 2nd is currently infusing at this time. INR from 0845 2.45- A repeat INR to be drawn after this unit of FFP finishes infusing and IR to be contacted at this time. BC + and house staff has been notified. IV abx per order. Pt is currently resting in bed comfortably with no complaints and Vitals are currently stable. An additional 20mg IV lasix to be given after this unit of FFP. Will continue to closely monitor patient.
[2017-03-30 14:45] LABS: PT 18.7 SEC (9.4-12.5)
[2017-03-30 16:00] VITALS: BP 120/70
--- NOTE | 2017-03-30 16:30 | NUR ---
IR RN and radiologist at the bedside for merary drain placement- Pt was medicated with IV ativan. morphine and versed per orders. Respiratory rate remains in the 30-40's on 4L nc, O2 sats stable at 94-96%. HR- 100-120's in a paced rhythem. SBP: 110-130's. FFP infusing at this time- Repeat INR drawn and 1.79- radiologist and house staff aware. Family notified of procedure and agrreable. Will continue to closely monitor patient.
--- NOTE | 2017-03-30 19:00 | NUR ---
Patient was transported to CT scan for merary tube placement after bedside ultrasound was unsuccessful. Patient and family agreeable to procedure. Drain was successfully placed by the radiologist and CT done for confirmation. A moderate amount of smith pus like output noted and sent to the lab per orders. Vitals remained stable and pt tolerated procedure well. Received 1mg IV versed per order. He was transported back to room [address] Blackwell in to see patient at this time. IV heparin to be started at [id number] as long as patient remains stable. IV unasyn given upon arrival back to the ICU. Remains on 4L nc, received an neb treatment. remains tachypneic. O2 sats stable at 96%. Paced on the tele monitor 90-120's and BP remains stable. [place] in place draining clear yellow urine. He currently denies pain. Family remains at the bedside and pt is currently resting comfortably with no complaints. Denies pain. Will continue to closely monitor patient.
--- NOTE | 2017-03-30 21:09 | NUR ---
@2003 PT HAD A LONG RUN OF VTACH, PT AT THAT TIME WAS NAUSEAS AND DRY HEAVING. MD CUELLAR TO BEDSIDE. PT HR IN 140'S, SBP 120'S, TACHYPNEIC AND WHEEZING. PT JUST C/O OF BEING NAUSEATED NO C/O OF CHEST PAIN OR TIGHTNESS. 2100 TROPONIN EKG AND ICU BUNDLE DRAWN AND SENT. PER DR. DUMAS HEPARIN DRIP NOT TO BE STARTED UNTIL ? 2300. ON 4L NC SAT 96-98% RR UPPER 30'S. CHOLEYCYSTECTOMY TUBE INTACT DRAINING THICK MILKY BEEBE. PEREZ IN PLACE DRAINING CLEAR YELLOW URINE. SKIN INTACT NO EDEMA. MONITORING CLOSELY.
[2017-03-31] VITALS: BP 104/62
[2017-03-31 05:27] LABS: ABSOLUTE BASOPHIL COUNT 0 /CUMM (0.0-0.2); ABSOLUTE EOSINOPHIL COUNT 0 /CUMM (0.0-0.7); ABSOLUTE GRANULOCYTE CT 17.3 /CUMM (1.4-6.5); ABSOLUTE LYMPH COUNT 0.4 /CUMM (1.2-3.4); ABSOLUTE MONOCYTE COUNT 1.1 /CUMM (0.10-0.60); BASOPHIL % 0 % (0.0-2.0); EOSINOPHIL % 0 % (0-5); GRANULOCYTE % 92.1 % (42.2-75.2); HEMATOCRIT 33.9 % (42-52); MEAN CORPUSCULAR HGB CONC 33.6 G/DL (33.0-37.0); MEAN CORPUSCULAR VOLUME 92.4 FL (80.0-94.0); MEAN PLATELET VOLUME 8.3 FL (7.4-10.4); PLATELET COUNT 218 /CUMM (130-400); RBC DISTRIBUTION WIDTH 13.7 % (11.5-14.5); RED BLOOD CELL CT 3.67 /CUMM (4.70-6.10); WHITE BLOOD CELL COUNT 18.8 /CUMM (4.8-10.8)
[2017-03-31 05:31] LABS: PTT 85 SEC (25-37)
[2017-03-31 08:00] VITALS: BP 120/68
--- NOTE | 2017-03-31 08:00 | NUR ---
REC'D THE PT A&OX3, DENIES ANY NAUSEA/VOMITING OR PAIN. CABALLERO. PT IS PACED WITH OCC MULTIFOCAL PVC'S PER THE INFORMATICS NURSE SPECIALIST. NO EDEMA NOTED. SPENCER BS ARE CLEAR EXCEPT FOR UPPER AIRWAY WHEEZE AT TIMES. O2 SAT IS 96% ON AN 4LNC. ABD IS DISTENDED AND SOFT WITH NORMOACTIVE BOWEL SOUNDS. RUQ PERCUTANEOUS DRAIN WITH SCANT CLOUDY BILIOUS COLORED DRAINIAGE. PEREZ IN PLACE DRAINING ORANGE BLOOD TINGED URINE. REMAINS ON THE HEPARIN GTT AT 8.9U/KG/HR OR 16.3ML/HR INFUSING VIA A RF #20. DR ALESIA LOJA AWARE OF URINE COLOR WELL PT BEING ON A HEPRIN GTT. NEXT PTT IS DUE AT 1200.
--- NOTE | 2017-03-31 09:30 | CT SCAN REPORT ---
EXAMINATION: CT ABDOMEN WITH CONTRAST CLINICAL INFORMATION: Epigastric pain with worsening of septic symptoms, status post attempted ultrasound guided cholecystostomy tube. COMPARISON: CTA from one day prior. TECHNIQUE: Multidetector volumetric imaging was performed of the abdomen following administration of oral and 95 mL Optiray 320 intravenous contrast. Sagittal and coronal reformatted images were obtained on the technologist's workstation. DLP: 353 mGy-cm FINDINGS: LUNG BASES: There are small bilateral pleural effusions with overlying atelectasis. The heart is enlarged. LIVER, GALLBLADDER, AND BILIARY TREE: The gallbladder remains distended with pericholecystic inflammatory changes. There is a single calcified stone that may be in the cystic duct. No evidence of perforation or perihepatic abscess. The remainder of the exam is unchanged from the day prior. IMPRESSION: Findings remain consistent with acute cholecystitis. There is a safe window for CT-guided cholecystostomy tube. There is no evidence of perforation or free air.
--- NOTE | 2017-03-31 09:36 | ULTRASOUND REPORT ---
PROCEDURE: US AND CT PERCUTANEOUS ABSCESS DRAINAGE CLINICAL INFORMATION: 81-year-old male with sepsis felt due to acute cholecystitis. Significant comorbidities including heart disease with elevated troponin on this admission. COMPARISON: CTA from 03/29/2017 PHYSICIAN: Mor Lim MD Interventional Radiologist CONSENT: Informed consent was obtained from the patient prior to the procedure. During this process, the procedure and potential alternatives were explained along with the intended outcome and benefits. The risks of the procedure, including the possibility of an unsuccessful procedure, as well as the risk of not doing the procedure, were discussed. Opportunity was given to ask questions regarding the procedure and intact competence to make decisions was determined. A signed consent form documenting this discussion was placed in the medical record. SEDATION: The procedure was performed with intravenous conscious sedation, standard monitoring with a certified nurse for a total of 45 minutes. Ativan, morphine, Versed and Fentanyl were utilized, as per the electronic medical record. FLUOROSCOPY TIME: 31 seconds TECHNIQUE AND FINDINGS: A time-out procedure was performed. Initially, this procedure was attempted at the bedside in the intensive care unit with ultrasound guidance. The upper abdomen was draped and prepped in standard sterile fashion. A window cholecystostomy tube was identified with ultrasound, although it was very limited. The skin was anesthestized with 10 mL of 1% lidocaine. A 5 German Yueh needle was placed towards the gallbladder. However, due to the patient's rapid breathing with respiratory rates ranging from 40-50, this could not be performed safely. The procedure was aborted for CT guidance. After a follow-up CT scan, dictated separately, a safe window was determined. The patient was placed supine on the CAT scan table. Preprocedure CT imaging was performed, which redemonstrated the inflamed gallbladder and a safe window for drainage. The patient's right upper quadrant and lateral abdomen was prepped and draped in the usual sterile fashion. Local anesthetic with 10 mL 1% lidocaine was used. Using standard interventional and sterile technique a One-step needle was introduced into the gallbladder under real-time CT fluoroscopy. Purulent fluid was aspirated. A 0.035 inch wire was placed through the introducer catheter, with position of the wire confirmed using CT fluoroscopy. Serial dilation was performed. A 8.5 German drainage catheter was placed over the wire into the abscess. The wire was removed. The pigtail was formed. Position within the abscess was confirmed using CT fluoroscopy. The catheter was attached to a drainage bag. A total of 50 cc pus was removed at the time of procedure. Specimens were sent for microbiology. A final CT was performed through the area of interest, which demonstrates the catheter in appropriate position. There is no evidence of hematoma or adjacent organ damage. The patient tolerated the procedure well. There were no immediate complications. The patient returned to the intensive care unit in stable position. IMPRESSION: 1. Failed ultrasound-guided cholecystostomy tube at the bedside in intensive care unit, as described above. 2. Technically successful CT-guided cholecystostomy tube, as described above.
--- NOTE | 2017-03-31 09:36 | PN- CRCU ---
Subjective HPI/Critical Care Issues: Events data reviewed Status post CT-guided cholecystotomy tube which yoselin pus being drained Feels a little fatigued Had mild nausea which resolved patient now once to eat Complaints of mild chest discomfort and abdominal discomfort. He is passing gas. Objective Current Medications: Current Medications Sig/Violetta Start time Last Medication Dose Route Stop Time Status Admin Acetaminophen 1,000 MG ONCE ONE 03/30 1915 DC 03/30 N/A 1 UNIT IV 03/30 192 1600 Acetaminophen 650 MG Q6P PRN 03/30 0045 AC PO Albuterol Sulfate 3 ML Q4H PRN 03/30 0830 AC 03/30 INH 1933 Ampicillin Sodium/ 3,000 MG Q6 03/30 0600 AC 03/31 Sulbactam Sodium IV 0541 Sodium Chloride 100 ML Carvedilol 6.25 MG BID 03/30 1000 AC 03/30 PO 2124 Dextrose/Sodium 1,000 ML Q13H 03/30 1000 DC 03/30 Chloride IV 1016 Dofetilide 250 MCG BID 03/30 1200 AC 03/30 PO 1852 Fentanyl Citrate 0 .STK-MED ONE 03/30 1737 DC .ROUTE Furosemide 20 MG BID 03/30 1000 AC 03/30 IV 2124 Heparin Sodium/ 25,000 UNIT Q24H 03/30 2315 AC 03/30 Dextrose IV 2327 Dextrose/Water 500 ML Isosorbide 60 MG DAILY 03/31 1000 AC Mononitrate PO Lidocaine 1 ML .STK-MED ONE 03/30 1836 DC ID 03/30 1837 Lorazepam 1 MG ONCE ONE 03/30 1915 DC 03/30 IV 03/30 191 1600 Magnesium Oxide 400 MG ONE ONE 03/30 2230 DC 03/30 PO 03/30 2231 2235 Melatonin 5 MG AT BEDTIME 03/30 2200 AC 03/30 PO 2124 Midazolam HCl 1 MG ONCE ONE 03/305 DC 03/30 IV 03/30 191 1630 Midazolam HCl 0 .STK-MED ONE 03/30 1740 DC .ROUTE Morphine Sulfate 2 MG Q4P PRN 03/30 0045 AC 03/31 IV 0239 Non-Formulary 0 SEE ADMIN CRITERIA 03/30 1000 DC Medication ANY Oxycodone HCl 5 MG Q6H PRN 03/30 0045 AC PO Pantoprazole Sodium 40 MG DAILY 03/30 1000 AC 03/30 IV 0940 Potassium Chloride 40 MEQ ONCE ONE 03/30 2230 DC 03/30 PO 03/30 2231 2235 Sodium Chloride 1,000 ML Q13H 03/30 0015 DC 03/30 IV 0020 Vital Signs & I&O Last 24 Hrs of Vitals and I&O: Vital Signs Date Time Temp Pulse Resp B/P B/P Pulse O2 O2 Flow FiO2 Mean Ox Delivery Rate 03/31 0400 98 Nasal 4.0L Cannula 03/31 0000 99 Nasal 4.0L Cannula 03/31 0000 98.7 99 30 104/62 99 Nasal 4.0L Cannula 03/30 2124 99.8 114 38 123/66 03/30 2000 98 Nasal 4.0L Cannula 03/30 1935 93 Nasal 4.0L Cannula 03/30 1700 98.2 03/30 1600 99.0 03/30 1600 98.2 116 40 120/70 98 Nasal 4.0L Cannula 03/30 1600 98 Nasal 4.0L Cannula 03/30 1200 96 Nasal 2.0L Cannula 03/30 1150 104 126/70 03/30 0940 119 127/75 Intake & Output 03/31 1600 03/31 0800 03/31 0000 Intake Total 391.8 570 Output Total 310 960 Balance 81.8 -390 Intake, Blood 280 Product Intake, IV 391.8 120 Intake, Oral 0 170 Number 0 0 Bowel Movements Output, 10 60 Drainage Output, Urine 300 900 Patient 210 lb Weight Impression/Plan Impression/Plan Impression/Plan: SIGNIFICANT DATA Creatinine is 0.9 24 anion gap is normal white count down to 18.892% segs body fluid cultures pending Physical Exam General Appearance: alert, awake, mild distress Comments: Well-developed well-nourished person in no acute distress HEENT: . Pupils equally round and reactive to light and accommodation. Nose is atraumatic. External auditory canal and Tympanic membranes clear. Pharynx normal. No swelling or edema. Moist oromucosa. Neck: Supple, no lymphadenopathy, normal range of motion without pain or tenderness Back: Nontender Cardiovascular: Regular rate and rhythms , positive murmur auscultated along the left sternal border consistent with aortic stenosis, normal JVP Respiratory: Chest nontender. Mild to moderate respiratory distress.positive increased work of breathing .breath sounds slightly diminished to auscultation bilaterally Abdomen: Cholecystotomy tube in place Normal bowel sounds. Extremity: No edema, no calf tenderness to palpation, normal and equal pulses. Able to move all extremities without difficulties or pain. Costumer Assistant strength is equal and symmetric bilaterally. Neuro: Alert oriented x3, motor sensory normal, cranial nerves II through XII grossly intact. Skin: No appreciable rash on exposed skin, slightly diaphoretic. Psych: Mood and affect is normal, memory and judgment is normal. IMPRESSION This is a gentleman with significant cardiomyopathy with low ejection fraction, extensive cardiac history with coronary artery disease with previous CABG and angioplasty, previous AICD, diastolic heart disease, left ventricular hypertrophy, [id number] aortic stenosis, mild mitral regurgitation, atrial fibrillation not on anticoagulation, now comes in with * Significant sepsis with acute cholecystitis, status post CT-guided cholecystotomy tube with Yoselin plus aspirated. Patient is growing alpha strep and his blood 2 out of 2 * Resolved Hypotension related to sepsis * Severe ischemic heart disease with significant cardiomyopathy with low ejection fraction with elevated troponin due to non-ST segment elevation ND/ demand * Paroxysmal atrial fibrillation on antiarrhythmic agent was on warfarin with High INR, initially now it's been reversed with vitamin K and multiple FFP prior to procedure. Patient is now on heparin drip * Hypertension hyperlipidemia valvular heart disease as noted above * Recent fluid overload s/p DIuresis RECOMMENDATION * Cont Heparin and cholecystostomy tube * Continue current antibiotics and ID to see discussed with Dr. Rothman * Watch for pulmonary edema * Discontinue all IV fluids, continue cardiac medications as ordered, DC proton pump inhibitor, minimize oxycodone, aggressive bowel regimen, check magnesium tomorrow and replace * Cardiology to decide on when to resume anticoagulation * Discontinue [place], out of bed to chair today.
--- NOTE | 2017-03-31 11:33 | PN- Cardiology ---
Subjective Subjective: Postprocedure day #1: s/p cholecystotomy tube placement. Mild discomfort right upper quadrant otherwise without complaints. Specifically denies any chest discomfort, palpitations, or shortness of breath. Objective Vital Signs and I&Os Vital Signs Date Time Temp Pulse Resp B/P B/P Pulse O2 O2 Flow FiO2 Mean Ox Delivery Rate 03/31 1010 97.6 100 25 106/71 03/31 1010 97.6 100 25 106/71 03/31 0800 96 Nasal 4.0L Cannula 03/31 0800 7.6 93 24 120/68 96 Nasal 4.0L Cannula 03/31 0400 98 Nasal 4.0L Cannula 03/31 0000 99 Nasal 4.0L Cannula 03/31 0000 98.7 99 30 104/62 99 Nasal 4.0L Cannula 03/30 2124 99.8 114 38 123/66 03/30 2000 98 Nasal 4.0L Cannula 03/30 1935 93 Nasal 4.0L Cannula 03/30 1700 98.2 03/30 1600 99.0 03/30 1600 98.2 116 40 120/70 98 Nasal 4.0L Cannula 03/30 1600 98 Nasal 4.0L Cannula 03/30 1200 96 Nasal 2.0L Cannula 03/30 1150 104 126/70 Intake & Output 03/31 1600 03/31 0800 03/31 0000 03/30 1600 03/30 0800 03/30 0000 Intake Total 391.8 222 425 1453 Output Total 820 702 6213 300 50 Balance 81.8 -390 -1430 -300 4200 Intake, Blood 280 Product Intake, IV 391.8 168 746 7242 Intake, Oral 0 170 Number 0 0 0 Bowel Movements Output, 10 60 Drainage Output, Urine 452 288 1983 300 50 Patient 210 lb 200 lb 210 lb 195 lb Weight Weight Bed scale Estimated Measurement Method Physical Exam: Well-developed, well-nourished elderly male in no acute distress with nasal oxygen in place. Vital signs: See above. Neck: No JVD, no bruits. Lungs: Basilar crackles. Heart: S1, S2 with grade 1-2/6 systolic ejection type murmur best heard near the base. Abdomen: Soft, nontender, positive bowel sounds. Drainage tube in place. Extremities: No edema. Assessment/Plan Assessment/Plan [id number] w/ hx of HTN, HLD, and coronary, valvular, dysrhythmic/conduction disease and cardiomyopathy [facility] following an episode of upper abdominal/chest discomfort with a "negative" evaluation at that time and who presented to the ED last night with hypotension, recurrent diaphoresis, weakness, and lower chest/upper abdominal discomfort, and elevated WBC count with radiographic findings consistent with acute cholecystitis, but also CXR evidence of HF following volume resuscitation, runs of NSVT, and positive troponin I. Given evidence of acute cholecystitis, cholecystotomy was performed 03/30/2017 by interventional radiology. Positive blood cultures for Alpha Streptococcus, WBC remains elevated but trending downward, troponins trending downward. IV heparin restarted. Continue present cardiac regimen of dofetilide, carvedilol, isosorbide mononitrate, furosemide, etc. Continue antimicrobial therapy. Infectious disease consultation pending. Repeat CXR. DVT prophylaxis being addressed. Continue telemetry? Not applicable (In ICU.)
--- NOTE | 2017-03-31 13:19 | Cons- Infect Disease ---
General Information and HPI Consulting Request Date of Consult: 03/31/17 Requested By: ELVA GOODWIN MD Reason for Consult: Positive blood and bile cultures Source of Information: patient, family History of Present Illness: This is a 81-year-old man with a history of hypertension, coronary artery disease, status post CABG 5, cardiomyopathy, status post mitral valve repair, atrial flutter, maintained on Coumadin, status post ablation, status post AICD 5 years prior to admission, aortic stenosis, seen at [facility] 2 weeks prior to admission with epigastric pain and discharged after one day with no clear diagnosis, admitted on March 29 after presenting to the emergency room with recurrent epigastric pain, radiating to the back, associated with fatigue, anorexia, one episode of vomiting, chills and sweats. On admission he was febrile to 100.8. Blood pressure was 77/48. Laboratory data revealed a white blood cell count of 24,000, BUN/creatinine 18 and 0.9, bilirubin 2.3, alkaline phosphatase 128, troponin 0.15, proBNP 7010, INR 5.28. Urinalysis rare RBC/5-10 WBCs. Chest x-ray was negative. CTA of the chest was negative for aortic dissection or pulmonary embolism but revealed a distended gallbladder with wall thickening and pericholecystic fluid. CT abdomen and pelvic angiogram revealed a distended gallbladder with wall thickening and pericholecystic fluid and sigmoid diverticulosis. He was given 5 L of fluid, FFP and vitamin K. He was also given Vancomycin, Flagyl, Ceftriaxone and Ceftazidime and was then changed to Unasyn. On March 30 his white blood cell count increased to 34,000, and a right upper quadrant ultrasound revealed an abnormal thickening of the gallbladder wall with a small amount of pericholecystic fluid. Later in the day he underwent placement of a cholecystostomy tube by IR, with 50 mL of pus obtained and with a catheter left in place. Blood cultures 2 were reported positive on March 30 for gram-positive cocci in chains, identified today as alpha strep. He has defervesced and white blood cell count has decreased. He feels improved with no complaints of abdominal pain at this time. Allergies/Medications Allergies: Coded Allergies: NO KNOWN ALLERGIES (12/30/12) Home Med List: Atorvastatin Calcium (Lipitor) 80 MG TABLET 1 TAB PO QPM CHOLESTEROL ( Reported) Carvedilol (Coreg) 6.25 MG TABLET 1 TAB PO BID HEART/BP (Reported) Dofetilide (Tikosyn) 250 MCG CAPSULE 1 CAP PO BID HEART (Reported) Furosemide (Lasix) 20 MG TABLET 1 TAB PO QAM DIURETIC (Reported) Isosorbide Mononitrate (Isosorbide Mononitrate ER) 60 MG TAB.ER.24H 1 TAB PO DAILY HEART (Reported) Lisinopril 2.5 MG TABLET 1 TAB PO QAM BP (Reported) Magnesium Oxide (Magnesium) 400 MG CAPSULE 1 CAP PO QAM SUPPLEMENT (Reported) Multivit-Min/FA/Lycopen/Lutein (A Thru Z Select Multivit Tab) 500 MCG-300 MCG- 250 MCG TABLET 1 TAB PO DAILY SUPPLEMENT (Reported) Warfarin Sodium (Coumadin) 4 MG TABLET 1 TAB PO MoTuWeThFrSa BLOOD THINNER ( Reported) Warfarin Sodium 2 MG TABLET 1 TAB PO QSUN BLOOD THINNER (Reported) Past History Travel History Traveled to [place] past 21 day No Medical History Blood Transfusion Hx: No Neurological: NONE EENT: NONE Cardiovascular: AFIB, aortic stenosis, CAD, cardiomyopathy, hypertension, hyperlipidemia, s/p AICD Respiratory: NONE Gastrointestinal: NONE Hepatic: NONE Renal: NONE Musculoskeletal: NONE Psychiatric: NONE Endocrine: NONE Blood Disorders: NONE Cancer(s): NONE History of MRSA: No History of VRE: No History of CDIFF: No Isolation History: Standard Pneumonia Vaccine: 09/06/11 Tetanus Vaccine: Surgical History Surgical History: s/p mitral valve repair Psychosocial History Where Do You Live? Home Services at Home: None Smoking Status: Former Smoker Review of Systems Review of Systems All Other Systems: Reviewed and Negative Exam & Diagnostic Data Last 24 Hrs of Vital Signs/I&O Vital Signs Date Time Temp Pulse Resp B/P B/P Pulse O2 O2 Flow FiO2 Mean Ox Delivery Rate 03/31 1200 99 Nasal 4.0L Cannula 03/31 1010 97.6 100 25 106/71 03/31 1010 97.6 100 25 106/71 03/31 0800 96 Nasal 4.0L Cannula 03/31 0800 7.6 93 24 120/68 96 Nasal 4.0L Cannula 03/31 0400 98 Nasal 4.0L Cannula 03/31 0000 99 Nasal 4.0L Cannula 03/31 0000 98.7 99 30 104/62 99 Nasal 4.0L Cannula 03/30 2124 99.8 114 38 123/66 03/30 2000 98 Nasal 4.0L Cannula 03/30 1935 93 Nasal 4.0L Cannula 03/30 1700 98.2 03/30 1600 99.0 03/30 1600 98.2 116 40 120/70 98 Nasal 4.0L Cannula 03/30 1600 98 Nasal 4.0L Cannula Intake & Output 03/31 1600 03/31 0800 03/31 0000 Intake Total 391.8 570 Output Total 310 960 Balance 81.8 -390 Intake, Blood 280 Product Intake, IV 391.8 120 Intake, Oral 0 170 Number 0 0 Bowel Movements Output, 10 60 Drainage Output, Urine 300 900 Patient 210 lb 200 lb Weight Physical Exam Other Physical Findings: Afebrile. He is awake and alert in no acute distress. Skin reveals no rash. HEENT negative. Neck is supple with no adenopathy. Lungs are clear. Heart regular rhythm with a 1/6 systolic ejection murmur. Abdomen is soft, tender on palpation on the right, with no guarding or rebound, with positive bowel sounds; cholecystostomy tube in place with no drainage. Back no CVA tenderness. Extremities no cyanosis, clubbing or edema. Neuro is without focality. Last 24 Hours of Lab Results: Laboratory Tests 03/31 03/31 03/31 1210 0910 0500 Chemistry Sodium (137 - 145 mmol/L) 143 Potassium (3.5 - 5.1 mmol/L) 4.1 Chloride (98 - 107 mmol/L) 108 H Carbon Dioxide (22 - 30 mmol/L) 24 Anion Gap (5 - 16) 11 BUN (9 - 20 mg/dL) 24 H Creatinine (0.7 - 1.2 mg/dL) 0.9 Estimated GFR (>60 ml/min) > 60 Glucose (65 - 99 mg/dL) 123 H Calcium (8.4 - 10.2 mg/dL) 8.5 Phosphorus (2.5 - 4.5 mg/dL) 4.0 Magnesium (1.6 - 2.3 mg/dL) 1.9 Total Bilirubin (0.2 - 1.3 mg/dL) 1.5 H AST (17 - 59 U/L) 69 H ALT (21 - 72 U/L) 41 Troponin I (<0.11 ng/ml) 4.82 *H Albumin (3.5 - 5.0 g/dL) 3.3 L Coagulation APTT (25 - 37 SEC) Pending 85 H Hematology CBC w Diff NO MAN DIFF REQ WBC (4.8 - 10.8 /CUMM) 18.8 H RBC (4.70 - 6.10 /CUMM) 3.67 L Hgb (14.0 - 18.0 G/DL) 11.4 L Hct (42 - 52 %) 33.9 L MCV (80.0 - 94.0 FL) 92.4 MCH (27.0 - 31.0 PG) 31.0 RDW (11.5 - 14.5 %) 13.7 Plt Count (130 - 400 /CUMM) 218 MPV (7.4 - 10.4 FL) 8.3 Gran % (42.2 - 75.2 %) 92.1 H Lymphocytes % (20.5 - 51.1 %) 2.0 L Monocytes % (1.7 - 9.3 %) 5.9 Eosinophils % (0 - 5 %) 0 Basophils % (0.0 - 2.0 %) 0 L Absolute Granulocytes (1.4 - 6.5 /CUMM) 17.3 H Absolute Lymphocytes (1.2 - 3.4 /CUMM) 0.4 L Absolute Monocytes (0.10 - 0.60 /CUMM) 1.1 H Absolute Eosinophils (0.0 - 0.7 /CUMM) 0 Absolute Basophils (0.0 - 0.2 /CUMM) 0 PUBS MCHC (33.0 - 37.0 G/DL) 33.6 03/31 1800 1800 1505 Chemistry Sodium (137 - 145 mmol/L) 141 Potassium (3.5 - 5.1 mmol/L) 3.7 Chloride (98 - 107 mmol/L) 105 Carbon Dioxide (22 - 30 mmol/L) 21 L Anion Gap (5 - 16) 15 BUN (9 - 20 mg/dL) 20 Creatinine (0.7 - 1.2 mg/dL) 0.9 Estimated GFR (>60 ml/min) > 60 Glucose (65 - 99 mg/dL) 92 Calcium (8.4 - 10.2 mg/dL) 8.3 L Phosphorus (2.5 - 4.5 mg/dL) 4.1 Magnesium (1.6 - 2.3 mg/dL) 1.8 Total Bilirubin (0.2 - 1.3 mg/dL) 1.8 H AST (17 - 59 U/L) 63 H ALT (21 - 72 U/L) 42 Troponin I (<0.11 ng/ml) 5.22 *H 3.74 *H 2.82 *H Albumin (3.5 - 5.0 g/dL) 3.6 Other Body Source Fluid WBC Cancelled Fld Total RBCs Counted Cancelled Fluid Glucose (mg/dL) < 20 Fluid Total Protein (g/dL) < 2.0 Fluid Albumin (g/dL) < 1.0 Fluid LDH (U/L) Fluid Amylase (U/L) < 30 03/30 1425 Coagulation PT (9.4 - 12.5 SEC) 18.7 H INR (0.90 - 1.17) 1.79 H Last 24 Hours of Onofre Results: Blood cultures 2 March 29 positive for alpha strep Bile culture March 30 positive for alpha strep and non-lactose fermenting gram- negative rods Urine culture March 30 negative Diagnostic Data Recent Imaging Findings: Chest x-ray March 29 negative. CTA of the chest March 29 negative for aortic dissection or pulmonary embolism but revealed a distended gallbladder with wall thickening and pericholecystic fluid. CT abdomen and pelvic angiogram March 29 revealed a distended gallbladder with wall thickening and pericholecystic fluid and sigmoid diverticulosis. Right upper quadrant ultrasound March 30 revealed an abnormal thickening of the gallbladder wall with a small amount of pericholecystic fluid Chest x-ray March 30, personally reviewed, reveals cardiomegaly with hilar basilar congestion and mild interstitial edema CT of the abdomen March 30 revealed a distended gallbladder with pericholecystic inflammatory changes and a single calcified stone that may be in the cystic duct Assessment/Plan Assessment/Plan Impression: This is a 81-year-old man with a significant cardiac history including coronary artery disease, status post CABG, atrial flutter, status post AICD, maintained on Coumadin, admitted on March 29 with acute epigastric pain associated with anorexia, vomiting, fatigue, chills and sweats, found to be febrile with a leukocytosis and with imaging studies revealing acute cholecystitis, status post placement of a cholecystostomy tube with blood cultures positive for alpha strep and bile cultures positive for alpha strep and gram-negative rods. He appears to have improved with resolution of his abdominal pain, defervescence and decrease in his white blood cell count. He will need to be continued on antibiotics, but, if he continues to improve, he he will be able to be changed to oral antibiotics to complete a 10-14 day course of treatment. He will most likely require a cholecystectomy, but not likely until 6 weeks from now. His chest x-ray does suggest mild fluid overload likely secondary to the significant amount of fluid he received in the ER. Suggestion: 1. Follow-up final blood and bile cultures 2. Further management of his fluid status per Cardiology 3. Would re-dose with Ceftriaxone 1 g IV 1 pending above 4. Continue Unasyn pending above Consult Acknowledgment - Thank you for your consult request.
[2017-03-31 13:23] LABS: PTT 73 SEC (25-37)
--- NOTE | 2017-03-31 14:10 | RADIOLOGY REPORT ---
EXAMINATION: XR PORTABLE CHEST CLINICAL INFORMATION: Shortness of breath, wheezing and crackles. COMPARISON: 03/30/2017 TECHNIQUE: Portable frontal view of the chest was obtained. FINDINGS: Again noted is the large cardiac silhouette and the replaced mitral valve. Surgical changes of remote coronary artery bypass grafting with intact sternotomy wires in place. The right atrial and biventricular pacing leads are in their expected positions. Again noted are the prominent hilar vessels. However, no evidence of interstitial edema, focal consolidation or overt pleural effusion. IMPRESSION: 1. Cardiomegaly and vascular congestion without pulmonary edema. 2. No evidence of pneumonia.
--- NOTE | 2017-03-31 14:17 | PN- Resident CRCU ---
Subjective HPI/CRCU Issues: Patient is status post placement of percutaneous cholecystostomy tube by IR yesterday. Total output in the bag since yesterday up to this morning 6 AM was 70 mL. Patient is feeling better. Complaining of mild discomfort at the site of drain. denies chest pain. Objective Vital Signs & I&O Last 8 Hrs of Vitals and I&O: Intake & Output 03/31 1600 Intake Total Output Total Balance Patient 210 lb Weight Temperature 99 Pulse 116-93 RR 40-25 BP 120-106/71-62 Pulse ox 98-99 Exam General Appearance: alert, awake, comfortable Respiratory: crackles (basal) Cardiovascular: tachycardia Gastrointestinal: normal bowel sounds, soft, non-tender, drain in place Extremities: no edema IV Drips IV Drips: heparin drip Current Medications: Current Medications Sig/Violetta Start time Last Medication Dose Route Stop Time Status Admin Acetaminophen 1,000 MG ONCE ONE 03/30 1915 DC 03/30 N/A 1 UNIT IV 03/30 1929 1600 Acetaminophen 650 MG Q6P PRN 03/30 0045 AC PO Albuterol Sulfate 3 ML Q4H PRN 03/30 0830 AC 03/30 INH 1933 Ampicillin Sodium/ 3,000 MG Q6 03/30 0600 AC 03/31 Sulbactam Sodium IV 1208 Sodium Chloride 100 ML Carvedilol 6.25 MG BID 03/30 1000 AC 03/31 PO 1010 Ceftriaxone Sodium 1,000 MG ONCE ONE 03/31 1330 DC IV 03/31 1331 Docusate Sodium 100 MG BID 03/31 2200 AC PO Dofetilide 250 MCG BID 03/30 1200 AC 03/31 PO 1011 Fentanyl Citrate 0 .STK-MED ONE 03/30 1737 DC .ROUTE Furosemide 20 MG BID 03/30 1000 AC 03/31 IV 1010 Heparin Sodium/ 25,000 UNIT Q24H 03/30 2315 AC 03/30 Dextrose IV 2327 Dextrose/Water 500 ML Isosorbide 60 MG DAILY 03/31 1000 AC 03/31 Mononitrate PO 1010 Lidocaine 1 ML .STK-MED ONE 03/30 1836 DC ID 03/30 183 Lorazepam 1 MG ONCE ONE 03/30 1915 DC 03/30 IV 03/30 191 1600 Magnesium Oxide 400 MG ONE ONE 03/30 2230 DC 03/30 PO 03/30 2231 2235 Melatonin 5 MG AT BEDTIME 03/30 2200 AC 03/30 PO 2124 Midazolam HCl 1 MG ONCE ONE 03/30 1915 DC 03/30 IV 03/30 191 1630 Midazolam HCl 0 .STK-MED ONE 03/30 1740 DC .ROUTE Morphine Sulfate 2 MG Q4P PRN 03/30 0045 AC 03/31 IV 0239 Oxycodone HCl 5 MG Q6H PRN 03/30 0045 AC PO Pantoprazole Sodium 40 MG DAILY 03/30 1000 DC 03/31 IV 1010 Polyethylene Glycol 17 GM DAILY 04/01 1000 AC PO Potassium Chloride 40 MEQ ONCE ONE 03/30 2230 DC 03/30 PO 03/30 223 223 Impression/Plan Impression/Problem List Impression: Mr. Isai Greene is a 81-year-old male with a history of hypertension, dyslipidemia, and coronary heart disease/ischemic cardiomyopathy/ LBBB s/p CABG x, Atrial flutter s/p ablation and placement of Bi-V/AICD 2013 and initiation of Tikosyn, also currently on Coumadin, H/O CHF with moderately abnormal left ventricular ejection fraction estimated at 35% (echo ). PROBLEM LIST 1. Gram negative Bactremia secondary to acute cholecystitis s/p CT guided percutaneous cholecystostomy tube placement on 03/30. Patient remained afebrile. Her WBC count this morning is a 18.8. 70cc pussy discharge in last 12 hours. 2. Positive troponins/Heart failure/runs of NSVT. 2/2 sepsis vs NSTEMI. trops trended down. On heparin drip 3. H/O Atrial flutter status post ablation on tikosyn and Coumadin. Holding Coumadin since admission. on heparin drip 4. Supratherapeutic INR. 5.28 on admission. Status post 10 mg of subcutaneous vitamin K 2 and 5 units of FFP's. INR yest was 1.79 5. History of hypertension and dyslipidemia. Holding antihypertensives and statin for now PLAN * Close ICU monitoring * Watch for arrhythmias * Per surgery Plan is for laparoscopic cholecystectomy cystectomy after 3-4 weeks * Cardio consult appreciated * Continue Tikosyn. Will avoid Quinolones and other medications that increase QTc interval in combination with Tikosyn * Continue Coreg and Lasix with holding parameters. No meds if SBP <100 * GI consult * Continue heparin drip * Be cautious with fluids * ID consult appreciated * Continue IV unasyn * wait for final blood cultures * Continue GI and DVT prophylaxis * Adequate pain management * Clear liq diet * DNI Problem List: 1. Cholecystitis Pain Ratin Tomorrow's Labs & Rationales: cbc,icu bundle Plan DVT/Prophylaxis: mechanical, pharmacological
[2017-03-31 16:00] VITALS: BP 120/82
[2017-04-01] VITALS (7 sets, daily range): BP systolic 92–144; BP diastolic 64–90
[2017-04-01 00:51] LABS: PTT 55 SEC (25-37)
--- NOTE | 2017-04-01 01:30 | NUR ---
0000 PATIENT RECEIVED ALERT AND ORIENTED X3, SKIN PINK, WARM AND DRY, PATIENT STATES PAINFREE AT THIS TIME AFTER EARLIER PAIN MED, O2 AT 4L/MIN VIA NC- CONTINUOUS O2 SAT 96 TO 100%, BREATHE SOUNDS CLEAR BUT DIMNISHED AT BOTH BASES, FIELD HAND PACED RHYTHYM WITH OCCASIONAL PVC'S AND RUNS OF ? SVT VS AFIB- SEE STRIPS, DR DOMINGUEZ IN AND AWARE, PATIENT ASYMPTOMATIC, VSS, ABDOMEN SOFT, +BS, RUQ CHOLECYSTOSTOMY TUBE INTACT AND TO GRAVITY DRAINAGE- SCANT AMT PURULENT LIGHT BILE COLORED DRAINAGE NOTED, DRESSING CLEAN, DRY AND INTACT, PEREZ TO GRAVITY DRAINAGE WITH NOW CLEAR YELLOW UO, HEPARIN DRIP INFUSING AT 16.3 ML/HR (8.9 UNITS/KG/HR)- PTT DRAWN AND TO LAB, PATIENT SETTLED FOR SLEEP, CALL LIGHT WITHIN REACH
--- NOTE | 2017-04-01 03:01 | NUR ---
OCCASIONAL RUNS OF VT, VSS, PATIENT DENIES SYMPTOMS- DR VOSS IN AND AWARE
[2017-04-01 04:47] LABS: ABSOLUTE BASOPHIL COUNT 0 /CUMM (0.0-0.2); ABSOLUTE EOSINOPHIL COUNT 0.1 /CUMM (0.0-0.7); ABSOLUTE GRANULOCYTE CT 12.7 /CUMM (1.4-6.5); ABSOLUTE LYMPH COUNT 0.7 /CUMM (1.2-3.4); ABSOLUTE MONOCYTE COUNT 1.2 /CUMM (0.10-0.60); BASOPHIL % 0 % (0.0-2.0); EOSINOPHIL % 0.6 % (0-5); GRANULOCYTE % 86.8 % (42.2-75.2); HEMATOCRIT 31.6 % (42-52); MEAN CORPUSCULAR HGB 30.8 PG (27.0-31.0); MEAN CORPUSCULAR HGB CONC 33.7 G/DL (33.0-37.0); MEAN CORPUSCULAR VOLUME 91.5 FL (80.0-94.0); MEAN PLATELET VOLUME 8.6 FL (7.4-10.4); PLATELET COUNT 210 /CUMM (130-400); RBC DISTRIBUTION WIDTH 13.8 % (11.5-14.5); RED BLOOD CELL CT 3.46 /CUMM (4.70-6.10); WHITE BLOOD CELL COUNT 14.6 /CUMM (4.8-10.8)
[2017-04-01 05:05] LABS: PT 15.4 SEC (9.4-12.5)
--- NOTE | 2017-04-01 05:41 | NUR ---
INSPIRATORY WHEEZE NOTED AFTER MOVING AND TURNING, FAINT CRACKLES AT LEFT BASE, TO RECEIVE NEB TREATMENT FROM RT
--- NOTE | 2017-04-01 06:44 | NUR ---
PATIENT RESTING QUIETLY, NO CHANGES IN STATUS NOTED OVERNIGHT, AWAITING AM MD ROUNDS
[2017-04-01 09:48] LABS: PTT 57 SEC (25-37)
--- NOTE | 2017-04-01 10:16 | PN- Resident CRCU ---
Subjective HPI/CRCU Issues: I saw the patient today at bedside. He was sitting comfortably in chair. no over night events. He is conscious , oriented, denies chest pain, dyspnea and orthopnea. wbc trending down. vitals stable. 24 Hour Events: Vital Signs Date Time Temp Pulse Resp B/P B/P Pulse O2 O2 Flow FiO2 Mean Ox Delivery Rate 04/01 0800 97.7 88 18 144/88 99 Nasal 3.0L Cannula 04/01 0800 98 Nasal 3.0L Cannula 04/01 0605 97 Nasal 3.0L Cannula 04/01 0400 98 Nasal 3.0L Cannula 04/01 0000 100 Nasal 4.0L Cannula 04/01 0000 98.4 104 18 112/74 100 Nasal 4.0L Cannula 03/31 2127 100 20 104/66 03/31 2000 98 Nasal 4.0L Cannula 03/31 1600 98 Nasal 4.0L Cannula 03/31 1600 98.0 107 30 120/82 98 Nasal 4.0L Cannula 03/31 1200 99 Nasal 4.0L Cannula Objective Exam General Appearance: well developed/nourished, no apparent distress, alert, awake , comfortable Head: normal appearance Neck: normal inspection, supple, no JVD Respiratory: normal breath sounds, chest non-tender, no respiratory distress, quiet respiration Cardiovascular: regular rate/rhythm Gastrointestinal: normal bowel sounds, soft, non-tender Extremities: normal inspection Skin: intact, normal color Back: normal inspection IV Drips IV Drips: ON HEPARIN Nutrition Nutrition: HEART HEALTHY DIET Current Medications: Current Medications Sig/Violetta Start time Last Medication Dose Route Stop Time Status Admin Acetaminophen 650 MG Q6P PRN 03/30 0045 AC 04/01 PO 0839 Albuterol Sulfate 3 ML Q4H PRN 03/30 0830 AC 04/01 INH 0550 Ampicillin Sodium/ 3,000 MG Q6 03/30 0600 AC 04/01 Sulbactam Sodium IV 0550 Sodium Chloride 100 ML Carvedilol 6.25 MG BID 03/30 1000 AC 04/01 PO 0921 Ceftriaxone Sodium 1,000 MG ONCE ONE 03/31 1330 DC 03/31 IV 03/31 1331 1532 Docusate Sodium 100 MG BID 03/31 2200 AC 03/31 PO 2127 Dofetilide 250 MCG BID 03/30 1200 AC 04/01 PO 0922 Furosemide 20 MG ONCE ONE 04/01 1100 DC IV 04/01 1101 Furosemide 20 MG ONCE ONE 03/31 1530 DC 03/31 IV 03/31 1531 1532 Furosemide 20 MG BID 03/30 1000 AC 04/01 IV 0921 Heparin Sodium 2,850 UNIT 0200 04/01 0200 CAN (Porcine) IV 04/01 0500 Heparin Sodium/ 25,000 UNIT Q24H 03/30 2315 AC 04/01 Dextrose IV 0006 Dextrose/Water 500 ML Isosorbide 60 MG DAILY 03/31 1000 AC 04/01 Mononitrate PO 0922 Melatonin 5 MG AT BEDTIME 03/30 2200 AC 03/31 PO 2127 Morphine Sulfate 2 MG Q4P PRN 03/30 0045 AC 03/31 IV 2126 Oxycodone HCl 5 MG Q6H PRN 03/30 0045 AC PO Pantoprazole Sodium 40 MG DAILY 03/30 1000 DC 03/31 IV 1010 Phosphate 250 MG ONCE ONE 04/01 0945 DC 04/01 PO 04/01 0946 1038 Polyethylene Glycol 17 GM DAILY 04/01 1000 AC PO Potassium Chloride 20 MEQ ONCE ONE 04/01 1100 DC PO 04/01 1101 Potassium Chloride 40 MEQ ONCE ONE 04/01 0600 DC 04/01 PO 04/01 0601 0625 Impression/Plan Impression/Problem List Impression: Mr. Isai Greene is a 81-year-old male with a history of hypertension, dyslipidemia, and coronary heart disease/ischemic cardiomyopathy/ LBBB s/p CABG x, Atrial flutter s/p ablation and placement of Bi-V/AICD 2013 and initiation of Tikosyn, also currently on Coumadin, H/O CHF with moderately abnormal left ventricular ejection fraction estimated at 35% (echo ), s/p CT guided percutaneous cholecystostomy tube placement on 03/30. PLAN 1) sepsis seconadary to acute cholicystitis. Resolving. wbc-14.6. DRAIN: ON UNASYN DAY 3 2) H/O Atrial flutter status post ablation on tikosyn and Coumadin. ON HEPARIN. COUMADIN HELD. PT 15.4 INR 1.47 3) Problem List: 1. Supratherapeutic INR 2. Acute cholecystitis 3. Sepsis 4. Elevated troponin 5. Shock 6. CAD S/P [id number] Plan DVT/Prophylaxis: mechanical, pharmacological
--- NOTE | 2017-04-01 11:41 | PN- Pulmonary ---
Subjective HPI/Critical Care Issues: I saw the patient today at bedside. He was sitting comfortably in chair. no over night events. He is conscious , oriented, denies chest pain, dyspnea and orthopnea. wbc trending down. vitals stable. noted to have nsvt last night per cardio on off arrythmia Objective Current Medications: Current Medications Sig/Violetta Start time Last Medication Dose Route Stop Time Status Admin Acetaminophen 650 MG Q6P PRN 03/30 0045 AC 04/01 PO 0839 Albuterol Sulfate 3 ML Q4H PRN 03/30 0830 AC 04/01 INH 0550 Ampicillin Sodium/ 3,000 MG Q6 03/30 0600 AC 04/01 Sulbactam Sodium IV 1118 Sodium Chloride 100 ML Carvedilol 6.25 MG BID 03/30 1000 AC 04/01 PO 0921 Ceftriaxone Sodium 1,000 MG ONCE ONE 03/31 1330 DC 03/31 IV 03/31 1331 1532 Docusate Sodium 100 MG BID 03/31 2200 AC 03/31 PO 2127 Dofetilide 250 MCG BID 03/30 1200 AC 04/01 PO 0922 Furosemide 20 MG ONCE ONE 04/01 1100 DC 04/01 IV 04/01 1101 1118 Furosemide 20 MG ONCE ONE 03/31 1530 DC 03/31 IV 03/31 1531 1532 Furosemide 20 MG BID 03/30 1000 AC 04/01 IV 0921 Heparin Sodium 2,850 UNIT 0200 04/01 0200 CAN (Porcine) IV 04/01 0500 Heparin Sodium/ 25,000 UNIT Q24H 03/30 2315 AC 04/01 Dextrose IV 0006 Dextrose/Water 500 ML Isosorbide 60 MG DAILY 03/31 1000 AC 04/01 Mononitrate PO 0922 Melatonin 5 MG AT BEDTIME 03/30 2200 AC 03/31 PO 2127 Morphine Sulfate 2 MG Q4P PRN 03/30 0045 AC 03/31 IV 2126 Oxycodone HCl 5 MG Q6H PRN 03/30 0045 AC PO Pantoprazole Sodium 40 MG DAILY 03/30 1000 DC 03/31 IV 1010 Phosphate 250 MG ONCE ONE 04/01 0945 DC 04/01 PO 04/01 0946 1038 Polyethylene Glycol 17 GM DAILY 04/01 1000 AC PO Potassium Chloride 20 MEQ ONCE ONE 04/01 1100 DC 04/01 PO 04/01 1101 1118 Potassium Chloride 40 MEQ ONCE ONE 04/01 0600 DC 04/01 PO 04/01 0601 0625 Vital Signs & I&O Last 24 Hrs of Vitals and I&O: Vital Signs Date Time Temp Pulse Resp B/P B/P Pulse O2 O2 Flow FiO2 Mean Ox Delivery Rate 04/01 08 97.7 88 18 144/88 99 Nasal 3.0L Cannula 04/01 0800 98 Nasal 3.0L Cannula 04/01 0605 97 Nasal 3.0L Cannula 04/01 0400 98 Nasal 3.0L Cannula 04/01 0000 100 Nasal 4.0L Cannula 04/01 0000 98.4 104 18 112/74 100 Nasal 4.0L Cannula 03/31 2127 100 20 104/66 03/31 2000 98 Nasal 4.0L Cannula 03/31 1600 98 Nasal 4.0L Cannula 03/31 1600 98.0 107 30 120/82 98 Nasal 4.0L Cannula 03/31 1200 99 Nasal 4.0L Cannula Intake & Output 04/01 1600 04/01 0800 04/01 0000 Intake Total 560 633 Output Total 320 395 Balance 240 238 Intake, IV 335 193 Intake, Oral 225 440 Number 0 Bowel Movements Output, 15 20 Drainage Output, Urine 305 375 Patient 204 lb Weight Weight Bed scale Measurement Method Impression/Plan Impression/Plan Impression/Plan: Physical Exam General Appearance: alert, awake, mild distress Comments: Well-developed well-nourished person in no acute distress HEENT: . Pupils equally round and reactive to light and accommodation. Nose is atraumatic. External auditory canal and Tympanic membranes clear. Pharynx normal. No swelling or edema. Moist oromucosa. Neck: Supple, no lymphadenopathy, normal range of motion without pain or tenderness Back: Nontender Cardiovascular: Regular rate and rhythms , positive murmur auscultated along the left sternal border consistent with aortic stenosis, normal JVP Respiratory: Chest nontender. Mild to moderate respiratory distress.positive increased work of breathing .breath sounds slightly diminished to auscultation bilaterally Abdomen: Cholecystotomy tube in place Normal bowel sounds. Extremity: No edema, no calf tenderness to palpation, normal and equal pulses. Able to move all extremities without difficulties or pain. Soda Drier Feeder strength is equal and symmetric bilaterally. Neuro: Alert oriented x3, motor sensory normal, cranial nerves II through XII grossly intact. Skin: No appreciable rash on exposed skin, slightly diaphoretic. Psych: Mood and affect is normal, memory and judgment is normal. CUlture enterobacter and alpha strep IMPRESSION This is a gentleman with significant cardiomyopathy with low ejection fraction, extensive cardiac history with coronary artery disease with previous CABG and angioplasty, previous AICD, diastolic heart disease, left ventricular hypertrophy, [id number] aortic stenosis, mild mitral regurgitation, atrial fibrillation not on anticoagulation, now comes in with * Resolving sepsis with acute cholecystitis, status post CT-guided cholecystotomy tube with Neil plus aspirated. Patient is growing alpha strep and his blood 2 out of 2, enterobacter aswell from the gb drainage * Resolved Hypotension related to sepsis * Severe ischemic heart disease with significant cardiomyopathy with low ejection fraction with elevated troponin due to non-ST segment elevation NH/ demand, now with nsvt and arrythmia * Paroxysmal atrial fibrillation on antiarrhythmic agent was on warfarin with High INR, initially now it's been reversed with vitamin K and multiple FFP prior to procedure. Patient is now on heparin drip * Hypertension hyperlipidemia valvular heart disease as noted above * Recent fluid overload s/p DIuresis RECOMMENDATION * Cont Heparin and cholecystostomy tube * Cont unasyn and add ceftriaxone aswell pending ID reeval * Watch for pulmonary edema * Continue cardiac medications as ordered, DC proton pump inhibitor, minimize oxycodone, aggressive bowel regimen, check magnesium tomorrow and replace * Resume warfarin a t 2.5 mg tonight and cont heparin * Ok to go to tele * Discontinue Easton, out of bed to chair today.
--- NOTE | 2017-04-01 12:59 | PN- Cardiology ---
Subjective Subjective: Patient feels reasonably well. Denies chest pain or palpitations. Does still have some abdominal discomfort. Objective Vital Signs and I&Os Vital Signs Date Time Temp Pulse Resp B/P B/P Pulse O2 O2 Flow FiO2 Mean Ox Delivery Rate 04/01 08 97.7 88 18 144/88 99 Nasal 3.0L Cannula 04/01 0800 98 Nasal 3.0L Cannula 04/01 0605 97 Nasal 3.0L Cannula 04/01 0400 98 Nasal 3.0L Cannula 04/01 0000 100 Nasal 4.0L Cannula 04/01 0000 98.4 104 18 112/74 100 Nasal 4.0L Cannula 03/31 2127 100 20 104/66 03/31 2000 98 Nasal 4.0L Cannula 03/31 1600 98 Nasal 4.0L Cannula 03/31 1600 98.0 107 30 120/82 98 Nasal 4.0L Cannula Intake & Output 04/01 1600 04/01 0800 04/01 0000 03/31 1600 03/31 0800 03/31 0000 Intake Total 339 425 9418 391.8 570 Output Total 320 395 500 310 960 Balance 240 238 862 81.8 -390 Intake, Blood 280 Product Intake, IV 335 193 391.8 120 Intake, Oral 713 013 1509 0 170 Intake, Tube 252 Feeding Number 0 1 0 0 Bowel Movements Output, 15 20 0 10 60 Drainage Output, Urine 305 375 500 300 900 Patient 204 lb 210 lb 200 lb Weight Weight Bed scale Measurement Method Physical Exam: General: no apparent distress. Alert. Eyes: No obvious scleral icterus. HEENT: No jugular venous distention or abnormal jugular venous pulsations. Cardiovascular: Normal intensity S1/S2. ICD noted Respiratory: No rales or rhonchi Abdomen: Mild tenderness to palpation Musculoskeletal: No clubbing or cyanosis noted, no edema Skin: Warm Neurologic: No gross focal deficits noted. Current Medications: Current Medications Sig/Violetta Start time Last Medication Dose Route Stop Time Status Admin Acetaminophen 650 MG Q6P PRN 03/30 0045 AC 04/01 PO 0839 Albuterol Sulfate 3 ML Q4H PRN 03/30 0830 AC 04/01 INH 0550 Ampicillin Sodium/ 3,000 MG Q6 03/30 0600 AC 04/01 Sulbactam Sodium IV 1118 Sodium Chloride 100 ML Carvedilol 6.25 MG BID 03/30 1000 AC 04/01 PO 0921 Ceftriaxone Sodium 1,000 MG ONCE ONE 04/01 1200 DC 04/01 IV 04/01 1201 1223 Ceftriaxone Sodium 1,000 MG ONCE ONE 03/31 1330 DC 03/31 IV 03/31 1331 1532 Docusate Sodium 100 MG BID 03/31 2200 AC 03/31 PO 2127 Dofetilide 250 MCG BID 03/30 1200 AC 04/01 PO 0922 Furosemide 20 MG ONCE ONE 04/01 1100 DC 04/01 IV 04/01 1101 1118 Furosemide 20 MG ONCE ONE 03/31 1530 DC 03/31 IV 03/31 1531 1532 Furosemide 20 MG BID 03/30 1000 AC 04/01 IV 0921 Heparin Sodium 2,850 UNIT 0200 04/01 0200 CAN (Porcine) IV 04/01 0500 Heparin Sodium/ 25,000 UNIT Q24H 03/30 2315 AC 04/01 Dextrose IV 0006 Dextrose/Water 500 ML Isosorbide 60 MG DAILY 03/31 1000 AC 04/01 Mononitrate PO 0922 Melatonin 5 MG AT BEDTIME 03/30 2200 AC 03/31 PO 2127 Morphine Sulfate 2 MG Q4P PRN 03/30 0045 AC 03/31 IV 2126 Oxycodone HCl 5 MG Q12 04/01 2200 AC PO Oxycodone HCl 5 MG Q6H PRN 03/30 0045 DC PO Pantoprazole Sodium 40 MG DAILY 03/30 1000 DC 03/31 IV 1010 Phosphate 250 MG ONCE ONE 04/01 0945 DC 04/01 PO 04/01 0946 1038 Polyethylene Glycol 17 GM DAILY 04/01 1000 AC PO Potassium Chloride 20 MEQ ONCE ONE 04/01 1100 DC 04/01 PO 04/01 1101 1118 Potassium Chloride 40 MEQ ONCE ONE 04/01 0600 DC 04/01 PO 04/01 0601 0625 Warfarin Sodium 2.5 MG COUMADIN 1700 ONE 04/01 1700 AC PO 04/01 1701 Results Last 48 Hrs of Labs/Mics: Laboratory Tests 04/01/17 0850: APTT 57 H 04/01/17 0415: Anion Gap 9, Estimated GFR > 60, Glucose 106 H, Calcium 8.5, Phosphorus 3.0, Magnesium 2.1, Total Bilirubin 1.0, AST 56, ALT 35, Albumin 3.0 L, PT 15.4 H, INR 1.47 H, CBC w Diff MAN DIFF ORDERED, RBC 3.46 L, MCV 91.5, MCH 30.8, RDW 13.8, MPV 8.6, Gran % 86.8 H, Lymphocytes % 4.5 L, Monocytes % 8.1, Eosinophils % 0.6, Basophils % 0 L, Absolute Granulocytes 12.7 H, Absolute Lymphocytes 0.7 L, Absolute Monocytes 1.2 H, Absolute Eosinophils 0.1, Absolute Basophils 0, Platelet Estimate ADEQUATE, Poikilocytosis 1+, Ovalocytes 1+, PUBS MCHC 33.7 04/01/17 0000: APTT 55 H 03/31/17 1210: APTT 73 H 03/31/17 0910: Troponin I 4.82 *H 03/31/17 0500: Anion Gap 11, Estimated GFR > 60, Glucose 123 H, Calcium 8.5, Phosphorus 4.0, Magnesium 1.9, Total Bilirubin 1.5 H, AST 69 H, ALT 41, Albumin 3.3 L, APTT 85 H, CBC w Diff NO MAN DIFF REQ, RBC 3.67 L, MCV 92.4, MCH 31.0, RDW 13.7, MPV 8.3, Gran % 92.1 H, Lymphocytes % 2.0 L, Monocytes % 5.9, Eosinophils % 0, Basophils % 0 L, Absolute Granulocytes 17.3 H, Absolute Lymphocytes 0.4 L, Absolute Monocytes 1.1 H, Absolute Eosinophils 0, Absolute Basophils 0, [facility] MCHC 33.6 03/31/17 0242: Troponin I 5.22 *H 03/30/17 2019: Anion Gap 15, Estimated GFR > 60, Glucose 92, Calcium 8.3 L, Phosphorus 4.1, Magnesium 1.8, Total Bilirubin 1.8 H, AST 63 H, ALT 42, Troponin I 3.74 *H, Albumin 3.6 03/30/17 1800: Fluid WBC Cancelled, Fld Total RBCs Counted Cancelled 03/30/17 1800: Fluid Glucose < 20, Fluid Total Protein < 2.0, Fluid Albumin < 1.0, Fluid LDH , Fluid Amylase < 30 03/30/17 1505: Troponin I 2.82 *H 03/30/17 1425: PT 18.7 H, INR 1.79 H Recent Imaging Studies: Telemetry tracings were personally reviewed and shows a paced rhythm with episodes of sinus tachycardia, SVT, and NSVT CXR yesterday: 1. Cardiomegaly and vascular congestion without pulmonary edema. 2. No evidence of pneumonia. Assessment/Plan Assessment/Plan 1. Hypotension/sepsis, improving 2. Status post cholecystostomy tube 3. Paroxysmal atrial fibrillation 4. History of ischemic cardiomyopathy with prior PCI/re-do CABG/MV repair 5. BiV-AICD in situ 6. Aortic stenosis 7. Elevated troponin likely due to demand ischemia 8. CHF, compensated Doing well. Still having intermittent arrhythmias on telemetry. Will likely be able to increase the beta jamie dosing if blood pressure remains stable. Would aim to the keep his fluid balance slightly negative. Continue anticoagulation. Would keep him on telemetry for now. Ej Mendoza MD [facility] Continue telemetry? Yes
--- NOTE | 2017-04-01 14:13 | PN- Infect Dx ---
Subjective Subjective: Afebrile. He feels improved with decreased abdominal discomfort, though still with mild nausea Objective Last 24 Hrs of Vital Signs/I&O Vital Signs Date Time Temp Pulse Resp B/P B/P Pulse O2 O2 Flow FiO2 Mean Ox Delivery Rate 04/01 1252 96 Room Air Room Air 04/01 0800 97.7 88 18 144/88 99 Nasal 3.0L Cannula 04/01 0800 98 Nasal 3.0L Cannula 04/01 0605 97 Nasal 3.0L Cannula 04/01 0400 98 Nasal 3.0L Cannula 04/01 0000 100 Nasal 4.0L Cannula 04/01 0000 98.4 104 18 112/74 100 Nasal 4.0L Cannula 03/31 2127 100 20 104/66 03/31 2000 98 Nasal 4.0L Cannula 03/31 1600 98 Nasal 4.0L Cannula 03/31 1600 98.0 107 30 120/82 98 Nasal 4.0L Cannula Intake & Output 04/01 1600 04/01 0800 04/01 0000 Intake Total 560 633 Output Total 320 395 Balance 240 238 Intake, IV 335 193 Intake, Oral 225 440 Number 0 Bowel Movements Output, 15 20 Drainage Output, Urine 305 375 Patient 204 lb Weight Weight Bed scale Measurement Method Physical Exam Other Physical Findings: He appears comfortable in no acute distress Lungs are clear Heart regular rhythm with no murmur Abdomen is soft, tender on palpation on the right, with no guarding or rebound, positive bowel sounds; cholecystostomy tube in place with 30 cc output yesterday and 15 cc overnight Extremities no cyanosis, clubbing or edema Easton catheter remains in place Results Last 24 Hours of Lab Results: Laboratory Tests 04/01 04/01 04/01 0850 0415 0000 Chemistry Sodium (137 - 145 mmol/L) 140 Potassium (3.5 - 5.1 mmol/L) 3.7 Chloride (98 - 107 mmol/L) 104 Carbon Dioxide (22 - 30 mmol/L) 27 Anion Gap (5 - 16) 9 BUN (9 - 20 mg/dL) 26 H Creatinine (0.7 - 1.2 mg/dL) 0.8 Estimated GFR (>60 ml/min) > 60 Glucose (65 - 99 mg/dL) 106 H Calcium (8.4 - 10.2 mg/dL) 8.5 Phosphorus (2.5 - 4.5 mg/dL) 3.0 Magnesium (1.6 - 2.3 mg/dL) 2.1 Total Bilirubin (0.2 - 1.3 mg/dL) 1.0 AST (17 - 59 U/L) 56 ALT (21 - 72 U/L) 35 Albumin (3.5 - 5.0 g/dL) 3.0 L Coagulation PT (9.4 - 12.5 SEC) 15.4 H INR (0.90 - 1.17) 1.47 H APTT (25 - 37 SEC) 57 H 55 H Hematology CBC w Diff MAN DIFF ORDERED WBC (4.8 - 10.8 /CUMM) 14.6 H RBC (4.70 - 6.10 /CUMM) 3.46 L Hgb (14.0 - 18.0 G/DL) 10.6 L Hct (42 - 52 %) 31.6 L MCV (80.0 - 94.0 FL) 91.5 MCH (27.0 - 31.0 PG) 30.8 RDW (11.5 - 14.5 %) 13.8 Plt Count (130 - 400 /CUMM) 210 MPV (7.4 - 10.4 FL) 8.6 Gran % (42.2 - 75.2 %) 86.8 H Lymphocytes % (20.5 - 51.1 %) 4.5 L Monocytes % (1.7 - 9.3 %) 8.1 Eosinophils % (0 - 5 %) 0.6 Basophils % (0.0 - 2.0 %) 0 L Absolute Granulocytes (1.4 - 6.5 /CUMM) 12.7 H Absolute Lymphocytes (1.2 - 3.4 /CUMM) 0.7 L Absolute Monocytes (0.10 - 0.60 /CUMM) 1.2 H Absolute Eosinophils (0.0 - 0.7 /CUMM) 0.1 Absolute Basophils (0.0 - 0.2 /CUMM) 0 Platelet Estimate (ADEQUATE) ADEQUATE Poikilocytosis 1+ Ovalocytes 1+ PUBS MCHC (33.0 - 37.0 G/DL) 33.7 Last 24 Hours of Onofre Results: Blood cultures March 29 positive for alpha strep Bile culture March 30 positive for alpha strep and Enterobacter cloacae resistant to Unasyn and sensitive to Ceftriaxone, Ciprofloxacin, Bactrim and Gentamicin Urine culture March 30 negative Recent Imaging Studies: Chest x-ray April 01 cardiomegaly and vascular congestion with no evidence of pneumonia Assessment/Plan Impression: Improving with temperatures normal and white blood cell count decreasing on Unasyn and Ceftriaxone, added yesterday pending final identification of the gram -negative sam, isolated from the bile culture along with the alpha strep, which was also isolated from the blood, now 2 days status post placement of a cholecystostomy tube for acute cholecystitis. The gram-negative sam was identified as an Enterobacter resistant to Unasyn; therefore his antibiotics will need to be adjusted. Suggestion: 1. Remove Easton catheter 2. Further management of his fluid status per Cardiology 3. Discontinue Unasyn 4. Continue Ceftriaxone 1 g IV every 24 hour, with eventual change to po Ciprofloxacin and Amoxicillin to complete a 14 day course of treatment Dr. Stauffer will be covering me until April 10
--- NOTE | 2017-04-01 15:58 | NUR ---
ASSUMED CARE OF PATIENT, HE IS ALERT AND ORIENTED WITH NO COMPLAINTS STATES HE FEELS BETTER TODAY. MOVES ALL EXTREMITIES, OOB TO CHAIR WITH MINIMAL ASSIST. LUNGS WITH SOME WHEEZES AND DIMINISHED AT BASES BUT SATS GOOD ON ROOM AIR. T TUBE IN PLACE TO RUQ ABDOMEN. SOFT NON TENDER WITH GOOD BOWEL SOUNDS. PEREZ OUT PATIENT HAS NOT VOIDED AT THIS TIME. SKIN INTACT, BUTTOCKS RED BUT NOT EXCORIATED AND BLANCHES WELL. PATIENT CHANGING POSITION FREQUENTLY.
--- NOTE | 2017-04-01 16:40 | Transfer of Care Summary ---
Hospital Course Course Hospital Course: DATE OF ICU TRANSFER 03/30/17 DATE OF TRANSFER TO FLOOR: NO OF DAYS IN ICU: 3 DIAGNOSIS UPON ADMISSION: Acute Cholecystitis Sepsis Elevated Troponin- trending down History of CAD s/p CABGx5 Atrial Fibrillation, on Coumadin Supratherapeutic INR=- trending down Hyperlipidemia Hypertension DIAGNOSIS UPON DISCHARGE FROM ICU: Acute Cholecystitis s/p CT guided percutaneous cholecystostomy tube on 03/30. Sepsis resolved Elevated Troponin History of CAD s/p CABGx5 Atrial Fibrillation, on Coumadin Supratherapeutic INR Hyperlipidemia Hypertension CONDITION UPON TRANSFER: Hemodynamically stable HPI: 81 year old man with past medical history of CAD s/p CABG x5 & BVPM (on dofetilide, carvedilol, isosorbide mononitrate, furosemide,) Aortic stenosis, Atrial Fibrillation on Coumadin, hypertension, and hyperlipidemia brought in by ambulance for evaluation of profound fatigue and epigastric pain. Patient reports two weeks ago he had moderate acute onset epigastric pain similar to todays episodes for which he contacted 911 whom brought him to [place] for evaluation. 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 The night prior to admission patient reports acute onset moderate/severe epigastric chest pain radiating straight through to his back with associated headache, fever, chills, palpitations, shortness of breath, nausea, and profund fatigue/weakness for which he contacted EMS whom brought him to the [facility] ED for evaluation. Pt also complains of fatigue, weakness, mild shortness of breath, and mild abdominal pain but otherwise denies any headache, fever, chills, chest pain, palpitations, shortness of breath, nausea, vomitnig, diarrhea. pt was admitted in ICU for close monitoring. ED vitals: Vitals: T Max 100.8, HR 110 at arrival improved to 87, RR 20, blood pressure 77/ 48 persistently hypertensive, saturating well on 3 L nasal cannula. On exam: A O 3, cooperative, no acute distress, neck supple, JVD normal, no lymphadenopathy, mucosa dry, no focal neurological deficit, no dependent edema, no obvious skin rashes or inflammation CVS: S1-S2, RRR. RS: Clear to auscultate bilaterally. Abdomen: Tender, guarding, bowel sounds decreased, Melo's sign present Peripheral pulses perfusion normal Labs: WBC 24.1, hemoglobin 13.3, hematocrit 39.5, neutrophils 94%, platelets 242 , sodium 134, bicarbonate 22, anion gap 11, BUN 18 creatinine 0.9, total bilirubin 2.3, AST 33, ALT 31, alkaline phosphatase 128, troponin 0.15, proBNP 7010, albumin 3.4, lipase 69, lactic acid 1.5, INR 5.28 UA hazy, protein 100, ketone trace, positive nitrates, positive leukocyte esterase, granular cast.Imaging: CXR: Stable cardiomegaly no acute airspace disease ICU COURSE: Patient was admitted in ICU advised nothing by mouth, gentle hydration, reversal of INR with vitamin K and fresh frozen plasma, started on broad-spectrum antibiotics ceftaz and flagyl. Hold antihypertensives and warfarin. Strict I and O maintained. Blood cultures sent. trend lactate, adequate pain control maintained. percutaneous cholecystostomy tube placement done by IR done on 03/30/17 total of 50 cc pus was removed at the time of procedure. Specimens were sent for microbiology Patient had x-ray evidence of heart failure following volume resuscitation and positive troponins I . heparin drip started. advised Cautious use of fluids and trend troponin and continue the current cardiac meds. Patient grew alpha Streptococcus in blood. plan to continue ceftriaxone and discontinue unasyn. Continue Ceftriaxone 1 g IV every 24 hour, with eventual change to po Ciprofloxacin and Amoxicillin to complete a 14 day course of treatment. Patient WBC trended down, no active complaints, hemodynamically stable and hence transferred back to telemetry. IMAGING: Abdomen and pelvis CTA: No evidence for aortic dissection. Distended gallbladder with wall thickening and pericholecystic fluid concerning for cholecystitis. Consider correlation with ultrasound for further tissue characterization. Sigmoid diverticulosis without evidence of diverticulitis. CTA chest: No CT evidence for aortic dissection or pulmonary embolism. Distended gallbladder with wall thickening and pericholecystic fluid without demonstrable cholelithiasis. Consider correlation with ultrasound for further tissue characterization as the appearance is concerning for cholecystitis. Complications: hypotension due to sepsis Significant Procedures: cholecystostomy tube placed Assessment/Plan: Mr. Isai Greene is a 81-year-old male with a history of hypertension, dyslipidemia, and coronary heart disease/ischemic cardiomyopathy/ LBBB s/p CABG x, Atrial flutter s/p ablation and placement of Bi-V/AICD 2013 and initiation of Tikosyn, also currently on Coumadin, H/O CHF with moderately abnormal left ventricular ejection fraction estimated at 35% (echo ). PROBLEM LIST 1. Gram negative Bactremia secondary to acute cholecystitis s/p CT guided percutaneous cholecystostomy tube placement on 03/30. Patient remained afebrile. Her WBC count this morning is a 14.6. 2. Positive troponins/Heart failure/runs of NSVT. 2/2 sepsis vs NSTEMI. trops trended down. On heparin drip 3. H/O Atrial flutter status post ablation on tikosyn and Coumadin. Holding Coumadin since admission. will start him on coumadin from [facility]. on heparin drip 4. Supratherapeutic INR. 5.28 on admission. Status post 10 mg of subcutaneous vitamin K 2 and 5 units of FFP's. INR today was 1.47 5. History of hypertension and dyslipidemia. Holding antihypertensives and statin for now PLAN * telemetry mniotring * Watch for arrhythmias * Per surgery Plan is for laparoscopic cholecystectomy cystectomy after 3-4 weeks * Cardio follow up advised - to increase the beta jamie dosing if blood pressure remains stable. to the keep his fluid balance slightly negative. To Continue anticoagulation. * Continue Tikosyn. Will avoid Quinolones and other medications that increase QTc interval in combination with Tikosyn * Continue Coreg and Lasix with holding parameters. No meds if SBP <100 * GI follow up * Continue heparin drip * Be cautious with fluids * ID follow up * start ceftriaxone and stop unasyn with eventual change to po Ciprofloxacin and Amoxicillin to complete a 14 day course of treatment. * wait for final blood cultures * Continue GI and DVT prophylaxis * Adequate pain management * regular diet * DNI
--- NOTE | 2017-04-01 17:34 | PN- CRCU ---
Subjective HPI/Critical Care Issues: I saw the pt today at bedside . he is comfortably sitting in chair. denies chest pain, not dyspnic not tachypic. hemodynamically stable. Objective Current Medications: Current Medications Sig/Violetta Start time Last Medication Dose Route Stop Time Status Admin Acetaminophen 650 MG .STK-MED ONE 04/01 0756 DC PO 04/01 0757 Acetaminophen 650 MG Q6P PRN 03/30 0045 AC 04/01 PO 0839 Albuterol Sulfate 3 ML Q4H PRN 03/30 0830 AC 04/01 INH 0550 Ampicillin Sodium/ 3,000 MG Q6 03/30 0600 DC 04/01 Sulbactam Sodium IV 1118 Sodium Chloride 100 ML Carvedilol 6.25 MG BID 03/30 1000 AC 04/01 PO 0921 Ceftriaxone Sodium 1,000 MG DAILY 04/02 1000 AC IV Ceftriaxone Sodium 1,000 MG ONCE ONE 04/01 1200 DC 04/01 IV 04/01 1201 1223 Docusate Sodium 100 MG BID 03/31 2200 AC 03/31 PO 2127 Dofetilide 250 MCG BID 03/30 1200 AC 04/01 PO 0922 Furosemide 20 MG ONCE ONE 04/01 1100 DC 04/01 IV 04/01 1101 1118 Furosemide 20 MG BID 03/30 1000 AC 04/01 IV 0921 Heparin Sodium 2,850 UNIT 0200 04/01 0200 CAN (Porcine) IV 04/01 0500 Heparin Sodium/ 25,000 UNIT Q24H 03/30 2315 AC 04/01 Dextrose IV 0006 Dextrose/Water 500 ML Isosorbide 60 MG DAILY 03/31 1000 AC 04/01 Mononitrate PO 0922 Melatonin 5 MG AT BEDTIME 03/30 2200 AC 03/31 PO 2127 Morphine Sulfate 2 MG Q4P PRN 03/30 0045 AC 03/31 IV 2126 Oxycodone HCl 5 MG Q12 04/01 2200 AC PO Oxycodone HCl 5 MG Q6H PRN 03/30 0045 DC PO Phosphate 250 MG ONCE ONE 04/01 0945 DC 04/01 PO 04/01 0946 1038 Polyethylene Glycol 17 GM DAILY 04/01 1000 AC PO Potassium Chloride 20 MEQ ONCE ONE 04/01 1100 DC 04/01 PO 04/01 1101 1118 Potassium Chloride 40 MEQ ONCE ONE 04/01 0600 DC 04/01 PO 04/01 0601 0625 Warfarin Sodium 2.5 MG COUMADIN 1700 ONE 04/01 1700 DC 04/01 PO 04/01 1701 1636 Vital Signs & I&O Last 24 Hrs of Vitals and I&O: Vital Signs Date Time Temp Pulse Resp B/P B/P Pulse O2 O2 Flow FiO2 Mean Ox Delivery Rate 04/01 1913 98.9 100 20 132/70 93 Room Air 04/01 1600 98.7 81 20 124/78 99 Room Air 04/01 1252 96 Room Air Room Air 04/01 0800 97.7 88 18 144/88 99 Nasal 3.0L Cannula 04/01 0800 98 Nasal 3.0L Cannula 04/01 0605 97 Nasal 3.0L Cannula 04/01 0400 98 Nasal 3.0L Cannula 04/01 0000 100 Nasal 4.0L Cannula 04/01 0000 98.4 104 18 112/74 100 Nasal 4.0L Cannula 03/31 2127 100 20 104/66 Intake & Output 04/01 1600 04/01 0800 04/01 0000 Intake Total 954 560 633 Output Total 490 320 395 Balance 464 240 238 Intake, IV 314 335 193 Intake, Oral 640 225 440 Number 2 0 Bowel Movements Output, 10 15 20 Drainage Output, Urine 480 305 375 Patient 204 lb Weight Weight Bed scale Measurement Method Exam General Appearance: well developed/nourished, no apparent distress, alert, awake , comfortable Head: normal appearance Neck: normal inspection, supple, full range of motion Respiratory: normal breath sounds, chest non-tender, no respiratory distress, quiet respiration Impression/Plan Impression/Plan Impression/Plan: Mr. Isai Greene is a 81-year-old male with a history of hypertension, dyslipidemia, and coronary heart disease/ischemic cardiomyopathy/ LBBB s/p CABG x, Atrial flutter s/p ablation and placement of Bi-V/AICD 2013 and initiation of Tikosyn, also currently on Coumadin, H/O CHF with moderately abnormal left ventricular ejection fraction estimated at 35% (echo ). PROBLEM LIST 1. Gram negative Bactremia secondary to acute cholecystitis s/p CT guided percutaneous cholecystostomy tube placement on 03/30. Patient remained afebrile. Her WBC count this morning is a 14.6. 2. Positive troponins/Heart failure/runs of NSVT. 2/2 sepsis vs NSTEMI. trops trended down. On heparin drip 3. H/O Atrial flutter status post ablation on tikosyn and Coumadin. Holding Coumadin since admission. will start him on coumadin from tonight. on heparin drip 4. Supratherapeutic INR. 5.28 on admission. Status post 10 mg of subcutaneous vitamin K 2 and 5 units of FFP's. INR today was 1.47 5. History of hypertension and dyslipidemia. Holding antihypertensives and statin for now PLAN * telemetry monitoring * Watch for arrhythmias * Per surgery Plan is for laparoscopic cholecystectomy cystectomy after 3-4 weeks * Cardio follow up advised - to increase the beta jamie dosing if blood pressure remains stable. to the keep his fluid balance slightly negative. To Continue anticoagulation. * Continue Tikosyn. Will avoid Quinolones and other medications that increase QTc interval in combination with Tikosyn * Continue Coreg and Lasix with holding parameters. No meds if SBP <100 * GI follow up * Continue heparin drip, coumadi tonight. * Be cautious with fluids * ID follow up * start ceftriaxone and stop unasyn with eventual change to po Ciprofloxacin and Amoxicillin to complete a 14 day course of treatment. * wait for final blood cultures * Continue GI and DVT prophylaxis * Adequate pain management * regular diet * DNI Code Status: Do Not Resucitate/Intubat Problem List: 1. Acute cholecystitis
--- NOTE | 2017-04-01 18:14 | NUR ---
PATIENT VOIDED 250CC CLEAR YELLOW URINE IN URINAL. NO DIFFICULTIES POST PEREZ REMOVAL.
--- NOTE | 2017-04-01 22:39 | NUR ---
AT 2044, PT GIVEN NIGHT TIME PILLS. BP 136/82 HR 104 PACED. DENIES CP OR PALPITATIONS. AT 2099, PT HAD 36 SECONDS OF VTACH- 140'S. CP 132/90. HR 137. 5MG IV CARDIZEM PUSHED BY DR. TRAYLOR. PT ASYMPTOMATIC DURING THE VTACH. AT 2152, BP 92/64 HR PACED 70-90S. DR. TRAYLOR AWARE OF BP CHANGE. PT IS ASLEEP AND COMFORTABLE IN BED. WILL CTM.
[2017-04-01 22:46] LABS: PTT 50 SEC (25-37)
[2017-04-02 00:17] VITALS: BP 112/62
[2017-04-02 05:42] LABS: ABSOLUTE BASOPHIL COUNT 0 /CUMM (0.0-0.2); ABSOLUTE EOSINOPHIL COUNT 0.3 /CUMM (0.0-0.7); ABSOLUTE GRANULOCYTE CT 13.2 /CUMM (1.4-6.5); ABSOLUTE LYMPH COUNT 0.9 /CUMM (1.2-3.4); ABSOLUTE MONOCYTE COUNT 1.6 /CUMM (0.10-0.60); BASOPHIL % 0.1 % (0.0-2.0); EOSINOPHIL % 1.8 % (0-5); GRANULOCYTE % 82.5 % (42.2-75.2); HEMATOCRIT 30.1 % (42-52); MEAN CORPUSCULAR HGB CONC 33.9 G/DL (33.0-37.0); MEAN CORPUSCULAR VOLUME 91.4 FL (80.0-94.0); MEAN PLATELET VOLUME 8.9 FL (7.4-10.4); PLATELET COUNT 242 /CUMM (130-400); RBC DISTRIBUTION WIDTH 13.8 % (11.5-14.5); RED BLOOD CELL CT 3.29 /CUMM (4.70-6.10)
[2017-04-02 05:54] LABS: PTT 76 SEC (25-37)
[2017-04-02 06:30] VITALS: BP 124/76
[2017-04-02 08:32] LABS: PT 14.9 SEC (9.4-12.5)
--- NOTE | 2017-04-02 09:03 | PN- Housestaff ---
See Addendum Subjective Follow-up For: -Acute Cholecystitis s/p CT guided percutaneous cholecystostomy tube on 03/30. -Positive troponins/Heart failure/runs of NSVT -H/O Atrial flutter status post ablation on tikosyn and Coumadin Complaints: no complaints, mild ruq pain with activity Tele-Events Since Last Visit: Single and dual-pacing, PVCs, a run of SVT at 3 AM, HR upto 120's Subjective: Patient seen and examined. Feels much improved and decreased abdominal discomfort. Endorses right upper quadrant pain only on bending and activity. No nausea and vomiting. Low-grade temp of 99.6 overnight. Review of Systems Constitutional: Reports: malaise, weakness. EENTM: Reports: no symptoms. Cardiovascular: Reports: no symptoms. Respiratory: Reports: no symptoms. Gastrointestinal: Reports: abdominal pain. Genitourinary: Reports: no symptoms. Musculoskeletal: Reports: no symptoms. Skin: Reports: no symptoms. Objective Last 24 Hrs of Vital Signs/I&O Vital Signs Date Time Temp Pulse Resp B/P B/P Pulse O2 O2 Flow FiO2 Mean Ox Delivery Rate 04/02 0630 99.6 82 20 124/76 98 Nasal Cannula 04/02 0017 90 112/62 04/02 0000 95 Nasal 2.0L Cannula 04/01 2153 80 92/64 04/01 2101 137 132/90 04/01 2101 137 132/90 04/01 2031 104 136/82 04/01 2015 98.2 104 24 136/82 94 Room Air 04/01 1913 98.9 100 20 132/70 93 Room Air 04/01 1600 98.7 81 20 124/78 99 Room Air 04/01 1252 96 Room Air Room Air Intake & Output 04/02 1600 04/02 0800 04/02 0000 Intake Total 424 200 Output Total 235 250 Balance 189 -50 Intake, IV 184 80 Intake, Oral 240 120 Number 2 Bowel Movements Output, Other 35 25 Output, Urine 200 225 Physical Exam General Appearance: Alert, Oriented X3, Cooperative, No Acute Distress Skin: No Rashes, No Breakdown, cholecystostomy tube in place, no erythema Skin Temp/Moisture Exam: Warm/Dry Sepsis Skin Exam (color): Normal for Ethnicity HEENT: Atraumatic, PERRLA, EOMI Neck: No JVD Lymphatic: Cervical nl Cardiovascular: Regular Rate, Normal S1, Normal S2, No Murmurs Lungs: Clear to Auscultation, Normal Air Movement Abdomen: Normal Bowel Sounds, Soft, cholecystotomy tube in place Neurological: Normal Speech, Normal Tone Extremities: No Clubbing, No Cyanosis, No Edema Current Medications: Current Medications Sig/Violetta Start time Last Medication Dose Route Stop Time Status Admin Acetaminophen 650 MG Q6P PRN 03/30 0045 AC 04/01 PO 0839 Albuterol Sulfate 3 ML Q4H PRN 03/30 0830 AC 04/01 INH 0550 Ampicillin Sodium/ 3,000 MG Q6 03/30 0600 DC 04/01 Sulbactam Sodium IV 1118 Sodium Chloride 100 ML Carvedilol 6.25 MG BID 03/30 1000 AC 04/01 PO 2031 Ceftriaxone Sodium 1,000 MG DAILY 04/02 1000 AC IV Ceftriaxone Sodium 1,000 MG ONCE ONE 04/01 1200 DC 04/01 IV 04/01 1201 1223 Diltiazem HCl 5 MG ONCE ONE 04/01 2100 DC 04/01 IV PUSH 04/01 2101 2101 Docusate Sodium 100 MG BID 03/31 2200 AC 03/31 PO 2127 Dofetilide 250 MCG BID 03/30 1200 AC 04/01 PO 2031 Furosemide 20 MG 0730,1630 04/02 0730 AC 04/02 IV 0842 Furosemide 20 MG ONCE ONE 04/01 1100 DC 04/01 IV 04/01 1101 1118 Furosemide 20 MG BID 03/30 1000 DC 04/01 IV 2031 Heparin Sodium 2,700 UNIT 2300 04/01 2300 DC 04/01 (Porcine) IV 04/01 2301 2300 Heparin Sodium 5,000 UNIT .STK-MED ONE 04/01 2253 DC (Porcine) IV 04/01 2254 Heparin Sodium/ 25,000 UNIT Q24H 03/30 2315 AC 04/01 Dextrose IV 2302 Dextrose/Water 500 ML Isosorbide 60 MG DAILY 03/31 1000 AC 04/01 Mononitrate PO 0922 Melatonin 5 MG AT BEDTIME 03/30 2200 AC 04/01 PO 203 Morphine Sulfate 2 MG Q4P PRN 03/30 0045 AC 03/31 IV 2126 Oxycodone HCl 5 MG Q12 04/01 2200 AC 04/01 PO 203 Oxycodone HCl 5 MG Q6H PRN 03/30 0045 DC PO Phosphate 250 MG ONCE ONE 04/01 0945 DC 04/01 PO 04/01 0946 1038 Polyethylene Glycol 17 GM DAILY 04/01 1000 AC PO Potassium Chloride 20 MEQ ONCE ONE 04/01 1100 DC 04/01 PO 04/01 1101 1118 Warfarin Sodium 2.5 MG COUMADIN 1700 ONE 04/01 1700 DC 04/01 PO 04/01 1701 1636 Last 24 Hrs of Lab/Onofre Results Last 24 Hrs of Labs/Mics: Laboratory Tests 04/02/17 0645: PT 14.9 H, INR 1.42 H 04/02/17 0451: Anion Gap 10, Estimated GFR > 60, Glucose 99, Calcium 8.6, Phosphorus 3.6, Magnesium 2.0, Total Bilirubin 1.0, AST 46, ALT 38, Albumin 3.0 L, APTT 76 H, CBC w Diff NO MAN DIFF REQ, RBC 3.29 L, MCV 91.4, MCH 31.0, RDW 13.8, MPV 8.9, Gran % 82.5 H, Lymphocytes % 5.9 L, Monocytes % 9.7 H, Eosinophils % 1.8, Basophils % 0.1, Absolute Granulocytes 13.2 H, Absolute Lymphocytes 0.9 L, Absolute Monocytes 1.6 H, Absolute Eosinophils 0.3, Absolute Basophils 0, PUBS MCHC 33.9 04/01/17 2200: APTT 50 H Assessment/Plan Assessment: Mr. Isai Greene is a 81-year-old male with a history of hypertension, dyslipidemia, and coronary heart disease/ischemic cardiomyopathy/ LBBB s/p CABG x, Atrial flutter s/p ablation and placement of Bi-V/AICD 2013 and initiation of Tikosyn, also currently on Coumadin, H/O CHF with moderately abnormal left ventricular ejection fraction estimated at 35% (echo ) was admitted to ICU for gram-negative sepsis secondary to acute cholecystitis. He is day 3 status post placement of a cholecystostomy tube for acute cholecystitis. Gram-negative sam identified as Enterobacter and patient is continued on ceftriaxone. Assessment and plan 1. Gram negative Bactremia secondary to acute cholecystitis s/p CT guided percutaneous cholecystostomy tube placement on 03/30. -Total drainage of 45 mL in the last 24 hours -White count 16 this morning. Low-grade temp of 99.6 overnight -Antibiotics changed to ceftriaxone 1 g daily as per ID recommendation(to be changed to by mouth Ciprofloxacin and Amoxicillin to complete a 14 day course of treatment ) -ID consult appreciated 2. Positive troponins/Heart failure/runs of NSVT. 2/2 sepsis vs NSTEMI. trops trended down. On heparin drip -No chest discomfort at this time -Continues to have some arrhythmias on the monitor. -We will continue anticoagulation, plan to increase the beta jamie dose if blood pressure tolerates 3. H/O Atrial flutter status post ablation on tikosyn and Coumadin. Holding Coumadin since admission. -Patient continued on heparin drip -We will restart Coumadin at discharge 4. History of hypertension and dyslipidemia. -On Coreg. -Plan to restart statin DVT prophylaxis heparin Diet, heart healthy DNR/DNI Problem List: 1. Cholecystitis 2. Elevated troponin 3. Cholecystostomy care Pain Ratin Pain Location: RUQ Pain Goal: Pain 4 or less Pain Plan: MORPHINE AND TYLENOL Tomorrow's Labs & Rationales: CBC.. INFECTION Consulting Request: Consulting Specialty: General Surgery
[2017-04-02 10:41] VITALS: BP 132/68
--- NOTE | 2017-04-02 11:50 | PN- Pulmonary ---
Subjective HPI/Critical Care Issues: Patient seen and examined. Feels much improved and decreased abdominal discomfort. Endorses right upper quadrant pain only on bending and activity. No nausea and vomiting. Low-grade temp of 99.6 overnight. Review of Systems Constitutional: Reports: malaise, weakness. EENTM: Reports: no symptoms. Cardiovascular: Reports: no symptoms. Respiratory: Reports: no symptoms. Gastrointestinal: Reports: abdominal pain. Genitourinary: Reports: no symptoms. Musculoskeletal: Reports: no symptoms. Skin: Reports: no symptoms. Objective Current Medications: Current Medications Sig/Violetta Start time Last Medication Dose Route Stop Time Status Admin Acetaminophen 650 MG Q6P PRN 03/30 0045 04/01 PO 0839 Albuterol Sulfate 3 ML Q4H PRN 03/30 0830 04/01 INH 0550 Ampicillin Sodium/ 3,000 MG Q6 03/30 0600 DC 04/01 Sulbactam Sodium IV 1118 Sodium Chloride 100 ML Carvedilol 6.25 MG BID 03/30 1000 AC 04/02 PO 1038 Ceftriaxone Sodium 1,000 MG DAILY 04/02 1000 IV Ceftriaxone Sodium 1,000 MG ONCE ONE 04/01 1200 DC 04/01 IV 04/01 1201 1223 Diltiazem HCl 5 MG ONCE ONE 04/01 2100 DC 04/01 IV PUSH 04/01 2101 2101 Docusate Sodium 100 MG BID 03/31 2200 AC 03/31 PO 2127 Dofetilide 250 MCG BID 03/30 1200 AC 04/02 PO 1036 Furosemide 20 MG 0730,1630 04/02 0730 AC 04/02 IV 0842 Furosemide 20 MG BID 03/30 1000 DC 04/01 IV 2031 Heparin Sodium 2,700 UNIT 2300 04/01 2300 DC 04/01 (Porcine) IV 04/01 2301 2300 Heparin Sodium 5,000 UNIT .STK-MED ONE 04/01 2253 DC (Porcine) IV 04/01 2254 Heparin Sodium/ 25,000 UNIT Q24H 03/30 2315 04/01 Dextrose IV 2302 Dextrose/Water 500 ML Isosorbide 60 MG DAILY 03/31 1000 04/02 Mononitrate PO 1037 Melatonin 5 MG AT BEDTIME 03/30 2200 AC 04/01 PO 2031 Morphine Sulfate 2 MG Q4P PRN 03/30 0045 AC 07/14 IV 2126 Oxycodone HCl 5 MG Q12 04/01 2200 AC 04/01 PO 2031 Oxycodone HCl 5 MG Q6H PRN 03/30 0045 DC PO Polyethylene Glycol 17 GM DAILY 04/01 1000 AC PO Potassium Chloride 40 MEQ ONCE ONE 04/02 0915 DC PO 04/02 0916 Warfarin Sodium 2.5 MG COUMADIN 1700 ONE 04/01 1700 DC 04/01 PO 04/01 1701 1636 Vital Signs & I&O Last 24 Hrs of Vitals and I&O: Vital Signs Date Time Temp Pulse Resp B/P B/P Pulse O2 O2 Flow FiO2 Mean Ox Delivery Rate 04/02 1041 76 132/68 04/02 1038 76 132/68 04/02 1037 76 132/68 04/02 0800 98 Nasal 2.0L Cannula 04/02 0630 99.6 82 20 124/76 98 Nasal Cannula 04/02 0017 90 112/62 04/02 0000 95 Nasal 2.0L Cannula 04/01 2153 80 92/64 04/01 210 137 132/90 04/01 2101 137 132/90 04/01 2031 104 136/82 04/01 2015 98.2 104 24 136/82 94 Room Air 04/01 1913 98.9 100 20 132/70 93 Room Air 04/01 1600 98.7 81 20 124/78 99 Room Air 04/01 1252 96 Room Air Room Air Intake & Output 04/02 1600 04/02 0800 04/02 0000 Intake Total 424 200 Output Total 235 250 Balance 189 -50 Intake, IV 184 80 Intake, Oral 240 120 Number 2 Bowel Movements Output, Other 35 25 Output, Urine 200 225 Patient 202 lb Weight Weight Chair scale Measurement Method Laboratory Tests 04/02 04/02 04/01 04/01 0645 0451 2200 0850 Chemistry Sodium (137 - 145 mmol/L) 140 Potassium (3.5 - 5.1 mmol/L) 3.5 Chloride (98 - 107 mmol/L) 102 Carbon Dioxide (22 - 30 mmol/L) 27 Anion Gap (5 - 16) 10 BUN (9 - 20 mg/dL) 29 H Creatinine (0.7 - 1.2 mg/dL) 0.7 Estimated GFR (>60 ml/min) > 60 Glucose (65 - 99 mg/dL) 99 Calcium (8.4 - 10.2 mg/dL) 8.6 Phosphorus (2.5 - 4.5 mg/dL) 3.6 Magnesium (1.6 - 2.3 mg/dL) 2.0 Total Bilirubin (0.2 - 1.3 mg/dL) 1.0 AST (17 - 59 U/L) 46 ALT (21 - 72 U/L) 38 Albumin (3.5 - 5.0 g/dL) 3.0 L Coagulation PT (9.4 - 12.5 SEC) 14.9 H INR (0.90 - 1.17) 1.42 H APTT (25 - 37 SEC) 76 H 50 H 57 H Hematology CBC w Diff NO MAN DIFF REQ WBC (4.8 - 10.8 /CUMM) 16.0 H RBC (4.70 - 6.10 /CUMM) 3.29 L Hgb (14.0 - 18.0 G/DL) 10.2 L Hct (42 - 52 %) 30.1 L MCV (80.0 - 94.0 FL) 91.4 MCH (27.0 - 31.0 PG) 31.0 RDW (11.5 - 14.5 %) 13.8 Plt Count (130 - 400 /CUMM) 242 MPV (7.4 - 10.4 FL) 8.9 Gran % (42.2 - 75.2 %) 82.5 H Lymphocytes % (20.5 - 51.1 %) 5.9 L Monocytes % (1.7 - 9.3 %) 9.7 H Eosinophils % (0 - 5 %) 1.8 Basophils % (0.0 - 2.0 %) 0.1 Absolute Granulocytes (1.4 - 6.5 /CUMM) 13.2 H Absolute Lymphocytes (1.2 - 3.4 /CUMM) 0.9 L Absolute Monocytes (0.10 - 0.60 /CUMM) 1.6 H Absolute Eosinophils (0.0 - 0.7 /CUMM) 0.3 Absolute Basophils (0.0 - 0.2 /CUMM) 0 PUBS MCHC (33.0 - 37.0 G/DL) 33.9 0704/01 0415 0000 1210 Chemistry Sodium (137 - 145 mmol/L) 140 Potassium (3.5 - 5.1 mmol/L) 3.7 Chloride (98 - 107 mmol/L) 104 Carbon Dioxide (22 - 30 mmol/L) 27 Anion Gap (5 - 16) 9 BUN (9 - 20 mg/dL) 26 H Creatinine (0.7 - 1.2 mg/dL) 0.8 Estimated GFR (>60 ml/min) > 60 Glucose (65 - 99 mg/dL) 106 H Calcium (8.4 - 10.2 mg/dL) 8.5 Phosphorus (2.5 - 4.5 mg/dL) 3.0 Magnesium (1.6 - 2.3 mg/dL) 2.1 Total Bilirubin (0.2 - 1.3 mg/dL) 1.0 AST (17 - 59 U/L) 56 ALT (21 - 72 U/L) 35 Albumin (3.5 - 5.0 g/dL) 3.0 L Coagulation PT (9.4 - 12.5 SEC) 15.4 H INR (0.90 - 1.17) 1.47 H APTT (25 - 37 SEC) 55 H 73 H Hematology CBC w Diff MAN DIFF ORDERED WBC (4.8 - 10.8 /CUMM) 14.6 H RBC (4.70 - 6.10 /CUMM) 3.46 L Hgb (14.0 - 18.0 G/DL) 10.6 L Hct (42 - 52 %) 31.6 L MCV (80.0 - 94.0 FL) 91.5 MCH (27.0 - 31.0 PG) 30.8 RDW (11.5 - 14.5 %) 13.8 Plt Count (130 - 400 /CUMM) 210 MPV (7.4 - 10.4 FL) 8.6 Gran % (42.2 - 75.2 %) 86.8 H Lymphocytes % (20.5 - 51.1 %) 4.5 L Monocytes % (1.7 - 9.3 %) 8.1 Eosinophils % (0 - 5 %) 0.6 Basophils % (0.0 - 2.0 %) 0 L Absolute Granulocytes (1.4 - 6.5 /CUMM) 12.7 H Absolute Lymphocytes (1.2 - 3.4 /CUMM) 0.7 L Absolute Monocytes (0.10 - 0.60 /CUMM) 1.2 H Absolute Eosinophils (0.0 - 0.7 /CUMM) 0.1 Absolute Basophils (0.0 - 0.2 /CUMM) 0 Platelet Estimate (ADEQUATE) ADEQUATE Poikilocytosis 1+ Ovalocytes 1+ PUBS MCHC (33.0 - 37.0 G/DL) 33.7 Microbiology Date/Time Procedure - Status Source Growth 03/30 1800 Body Fluid Culture - COMP BODY FLUID ENTEROBACTER CLOACAE ALPHA STREP 03/30 1800 Gram Stain - COMP BODY FLUID Impression/Plan Impression/Plan Impression/Plan: Physical Exam General Appearance: alert, awake, mild distress Comments: Well-developed well-nourished person in no acute distress HEENT: . Pupils equally round and reactive to light and accommodation. Nose is atraumatic. External auditory canal and Tympanic membranes clear. Pharynx normal. No swelling or edema. Moist oromucosa. Neck: Supple, no lymphadenopathy, normal range of motion without pain or tenderness Back: Nontender Cardiovascular: Regular rate and rhythms , positive murmur auscultated along the left sternal border consistent with aortic stenosis, normal JVP Respiratory: Chest nontender. Mild to moderate respiratory distress.positive increased work of breathing .breath sounds slightly diminished to auscultation bilaterally Abdomen: Cholecystotomy tube in place Normal bowel sounds. Extremity: No edema, no calf tenderness to palpation, normal and equal pulses. Able to move all extremities without difficulties or pain. Grievance Manager strength is equal and symmetric bilaterally. Neuro: Alert oriented x3, motor sensory normal, cranial nerves II through XII grossly intact. Skin: No appreciable rash on exposed skin, slightly diaphoretic. Psych: Mood and affect is normal, memory and judgment is normal. CUlture enterobacter and alpha strep IMPRESSION This is a gentleman with significant cardiomyopathy with low ejection fraction, extensive cardiac history with coronary artery disease with previous CABG and angioplasty, previous AICD, diastolic heart disease, left ventricular hypertrophy, [id number] aortic stenosis, mild mitral regurgitation, atrial fibrillation not on anticoagulation, now comes in with * Resolving sepsis with acute cholecystitis, status post CT-guided cholecystotomy tube with Neil plus aspirated. Patient is growing alpha strep and his blood 2 out of 2, enterobacter aswell from the gb drainage * Resolved Hypotension related to sepsis * Severe ischemic heart disease with significant cardiomyopathy with low ejection fraction with elevated troponin due to non-ST segment elevation MT/ demand, now with nsvt and arrythmia * Paroxysmal atrial fibrillation on antiarrhythmic agent was on warfarin with High INR, initially now it's been reversed with vitamin K and multiple FFP prior to procedure. Patient is now on heparin drip being started on warfarin again * Hypertension hyperlipidemia valvular heart disease as noted above * Recent fluid overload s/p DIuresis * REcent mild diarrhea RECOMMENDATION * Cont Heparin and cholecystostomy tube * Ceftriaxone per ID * Watch for pulmonary edema * Continue cardiac medications as ordered, DC proton pump inhibitor, minimize oxycodone, * REplace lytes * Warfarin 7.5 mg tonight and cont heparin Wean off oxygen Will follow prn Hospitalist svc to take over
--- NOTE | 2017-04-02 13:38 | PN- Cardiology ---
Subjective Subjective: Feels well today. Offers no complaints. Objective Vital Signs and I&Os Vital Signs Date Time Temp Pulse Resp B/P B/P Pulse O2 O2 Flow FiO2 Mean Ox Delivery Rate 04/02 1041 76 132/68 04/02 1038 76 132/68 04/02 1037 76 132/68 04/02 0800 98 Nasal 2.0L Cannula 04/02 0630 99.6 82 20 124/76 98 Nasal Cannula 04/02 0017 90 112/62 04/02 0000 95 Nasal 2.0L Cannula 04/01 2153 80 92/64 04/01 2101 137 132/90 04/01 2101 137 132/90 04/01 2031 104 136/82 04/01 2015 98.2 104 24 136/82 94 Room Air 04/01 1913 98.9 100 20 132/70 93 Room Air 04/01 1600 98.7 81 20 124/78 99 Room Air Intake & Output 04/02 1600 04/02 0800 04/02 0000 04/01 1600 04/01 0800 04/01 0000 Intake Total 424 200 954 560 633 Output Total 235 250 490 320 395 Balance 189 -50 464 240 238 Intake, IV 184 80 314 335 193 Intake, Oral 240 120 640 225 440 Number 2 2 0 Bowel Movements Output, 10 15 20 Drainage Output, Other 35 25 Output, Urine 200 225 480 305 375 Patient 202 lb 204 lb Weight Weight Chair scale Bed scale Measurement Method Physical Exam: General: no apparent distress. Alert. Eyes: No obvious scleral icterus. HEENT: No jugular venous distention or abnormal jugular venous pulsations. Cardiovascular: Normal intensity S1/S2. ICD noted Respiratory: No rales or rhonchi Abdomen: Mild tenderness to palpation Musculoskeletal: No clubbing or cyanosis noted, no edema Skin: Warm Neurologic: No gross focal deficits noted. Current Medications: Current Medications Sig/Violetta Start time Last Medication Dose Route Stop Time Status Admin Acetaminophen 650 MG Q6P PRN 03/30 0045 AC 04/01 PO 0839 Albuterol Sulfate 3 ML Q4H PRN 03/30 0830 AC 04/01 INH 0550 Ampicillin Sodium/ 3,000 MG Q6 03/30 0600 DC 04/01 Sulbactam Sodium IV 1118 Sodium Chloride 100 ML Carvedilol 6.25 MG BID 03/30 1000 AC 04/02 PO 1038 Ceftriaxone Sodium 1,000 MG DAILY 04/02 1000 AC IV Diltiazem HCl 5 MG ONCE ONE 04/01 2100 DC 04/01 IV PUSH 04/01 2101 2101 Docusate Sodium 100 MG BID 03/31 2200 AC 03/31 PO 2127 Dofetilide 250 MCG BID 03/30 1200 AC 04/02 PO 1036 Furosemide 20 MG 0730,1630 04/02 0730 AC 04/02 IV 0842 Furosemide 20 MG BID 03/30 1000 DC 04/01 IV 2031 Heparin Sodium 2,700 UNIT 2300 04/01 2300 DC 04/01 (Porcine) IV 04/01 2301 2300 Heparin Sodium 5,000 UNIT .STK-MED ONE 04/01 2253 DC (Porcine) IV 04/01 2254 Heparin Sodium/ 25,000 UNIT Q24H 03/30 2315 AC 04/01 Dextrose IV 2302 Dextrose/Water 500 ML Isosorbide 60 MG DAILY 03/31 1000 AC 04/02 Mononitrate PO 1037 Melatonin 5 MG AT BEDTIME 03/30 2200 AC 04/01 PO 2031 Morphine Sulfate 2 MG Q4P PRN 03/30 0045 AC 03/31 IV 2126 Oxycodone HCl 5 MG Q12 04/01 2200 AC 04/01 PO 2031 Polyethylene Glycol 17 GM DAILY 04/01 1000 AC PO Potassium Chloride 40 MEQ ONCE ONE 04/02 0915 DC 04/02 PO 04/02 0916 1149 Warfarin Sodium 2.5 MG COUMADIN 1700 ONE 04/01 1700 DC 04/01 PO 04/01 1701 1636 Results Last 48 Hrs of Labs/Mics: Laboratory Tests 04/02/17 0645: PT 14.9 H, INR 1.42 H 04/02/17 0451: Anion Gap 10, Estimated GFR > 60, Glucose 99, Calcium 8.6, Phosphorus 3.6, Magnesium 2.0, Total Bilirubin 1.0, AST 46, ALT 38, Albumin 3.0 L, APTT 76 H, CBC w Diff NO MAN DIFF REQ, RBC 3.29 L, MCV 91.4, MCH 31.0, RDW 13.8, MPV 8.9, Gran % 82.5 H, Lymphocytes % 5.9 L, Monocytes % 9.7 H, Eosinophils % 1.8, Basophils % 0.1, Absolute Granulocytes 13.2 H, Absolute Lymphocytes 0.9 L, Absolute Monocytes 1.6 H, Absolute Eosinophils 0.3, Absolute Basophils 0, PUBS MCHC 33.9 04/01/17 2200: APTT 50 H 04/01/17 0850: APTT 57 H 04/01/17 0415: Anion Gap 9, Estimated GFR > 60, Glucose 106 H, Calcium 8.5, Phosphorus 3.0, Magnesium 2.1, Total Bilirubin 1.0, AST 56, ALT 35, Albumin 3.0 L, PT 15.4 H, INR 1.47 H, CBC w Diff MAN DIFF ORDERED, RBC 3.46 L, MCV 91.5, MCH 30.8, RDW 13.8, MPV 8.6, Gran % 86.8 H, Lymphocytes % 4.5 L, Monocytes % 8.1, Eosinophils % 0.6, Basophils % 0 L, Absolute Granulocytes 12.7 H, Absolute Lymphocytes 0.7 L, Absolute Monocytes 1.2 H, Absolute Eosinophils 0.1, Absolute Basophils 0, Platelet Estimate ADEQUATE, Poikilocytosis 1+, Ovalocytes 1+, PUBS MCHC 33.7 04/01/17 0000: APTT 55 H Recent Imaging Studies: Telemetry tracings were personally reviewed and showed a paced rhythm with episodes of SVT and NSVT Assessment/Plan Assessment/Plan 1. Hypotension/sepsis, improving 2. Status post cholecystostomy tube 3. Paroxysmal atrial fibrillation 4. History of ischemic cardiomyopathy with prior PCI/re-do CABG/MV repair 5. BiV-AICD in situ 6. Aortic stenosis 7. Elevated troponin likely due to demand ischemia 8. CHF, compensated Doing well. Depending on BP trend may be able to increase the B-jamie dose tomorrow. Continue on the Lasix, would aim to try and keep his fluid balance slightly negative for now. Continue AC and telemetry. Ej Mendoza MD [facility] Continue telemetry? Yes
--- NOTE | 2017-04-02 14:21 | PN- Infect Dx ---
Subjective Subjective: Feels better. Decreased abdominal discomfort. Has right upper quadrant pain when bending. No nausea and vomiting. No fever. Low-grade temp of 99.6 overnight. Draining around the cholestostomy tube earlier today. Review of Systems Comments: 12 points reviewed as noted, otherwise negative. Objective Last 24 Hrs of Vital Signs/I&O Vital Signs Date Time Temp Pulse Resp B/P B/P Pulse O2 O2 Flow FiO2 Mean Ox Delivery Rate 04/02 1041 76 132/68 04/02 1038 76 132/68 04/02 1037 76 132/68 04/02 0800 98 Nasal 2.0L Cannula 04/02 0630 99.6 82 20 124/76 98 Nasal Cannula 04/02 0017 90 112/62 04/02 0000 95 Nasal 2.0L Cannula 04/01 2153 80 92/64 04/01 2101 137 132/90 04/01 2101 137 132/90 04/01 2031 104 136/82 04/01 2015 98.2 104 24 136/82 94 Room Air 04/01 1913 98.9 100 20 132/70 93 Room Air 04/01 1600 98.7 81 20 124/78 99 Room Air Intake & Output 04/02 1600 04/02 0800 04/02 0000 Intake Total 424 200 Output Total 235 250 Balance 189 -50 Intake, IV 184 80 Intake, Oral 240 120 Number 2 Bowel Movements Output, Other 35 25 Output, Urine 200 225 Patient 202 lb Weight Weight Chair scale Measurement Method Physical Exam Other Physical Findings: Well-developed well-nourished, in no acute distress HEENT: . Pupils equally round and reactive to light and accommodation. Nose is atraumatic. Moist oral mucosa. Neck: Supple, no lymphadenopathy, normal range of motion without pain or tenderness Cardiovascular: S1 S2 present , MARTHA 2/6 Respiratory: Chest nontender. Breath sounds slightly diminished to auscultation bilaterally Abdomen: Cholecystotomy tube in place Normal bowel sounds. Extremity: No edema, no calf tenderness to palpation, normal and equal pulses. Neuro: Alert oriented x3, motor sensory normal, cranial nerves II through XII grossly intact. Skin: No rash. Psych: Mood and affect is normal, memory and judgment is normal. Results Last 24 Hours of Lab Results: Laboratory Tests 04/02 04/02 04/01 0645 0451 2200 Chemistry Sodium (137 - 145 mmol/L) 140 Potassium (3.5 - 5.1 mmol/L) 3.5 Chloride (98 - 107 mmol/L) 102 Carbon Dioxide (22 - 30 mmol/L) 27 Anion Gap (5 - 16) 10 BUN (9 - 20 mg/dL) 29 H Creatinine (0.7 - 1.2 mg/dL) 0.7 Estimated GFR (>60 ml/min) > 60 Glucose (65 - 99 mg/dL) 99 Calcium (8.4 - 10.2 mg/dL) 8.6 Phosphorus (2.5 - 4.5 mg/dL) 3.6 Magnesium (1.6 - 2.3 mg/dL) 2.0 Total Bilirubin (0.2 - 1.3 mg/dL) 1.0 AST (17 - 59 U/L) 46 ALT (21 - 72 U/L) 38 Albumin (3.5 - 5.0 g/dL) 3.0 L Coagulation PT (9.4 - 12.5 SEC) 14.9 H INR (0.90 - 1.17) 1.42 H APTT (25 - 37 SEC) 76 H 50 H Hematology CBC w Diff NO MAN DIFF REQ WBC (4.8 - 10.8 /CUMM) 16.0 H RBC (4.70 - 6.10 /CUMM) 3.29 L Hgb (14.0 - 18.0 G/DL) 10.2 L Hct (42 - 52 %) 30.1 L MCV (80.0 - 94.0 FL) 91.4 MCH (27.0 - 31.0 PG) 31.0 RDW (11.5 - 14.5 %) 13.8 Plt Count (130 - 400 /CUMM) 242 MPV (7.4 - 10.4 FL) 8.9 Gran % (42.2 - 75.2 %) 82.5 H Lymphocytes % (20.5 - 51.1 %) 5.9 L Monocytes % (1.7 - 9.3 %) 9.7 H Eosinophils % (0 - 5 %) 1.8 Basophils % (0.0 - 2.0 %) 0.1 Absolute Granulocytes (1.4 - 6.5 /CUMM) 13.2 H Absolute Lymphocytes (1.2 - 3.4 /CUMM) 0.9 L Absolute Monocytes (0.10 - 0.60 /CUMM) 1.6 H Absolute Eosinophils (0.0 - 0.7 /CUMM) 0.3 Absolute Basophils (0.0 - 0.2 /CUMM) 0 PUBS MCHC (33.0 - 37.0 G/DL) 33.9 Last 24 Hours of Onofre Results: Patient : DAYANA HERRING Acct: [id number] DR: ELVA GOODWIN MD Birthdate: [birth year] Age/Sex: 81/M Unit: [id number] Loc: [address] [place] [address] Status : ADM IN SPEC #: [id number] MAURO: 03/29/17 STATUS: COMP RECD: 03/29/[address]: LEONARDA CRYSTAL SOURCE: BLOOD ENTR: 03/29/[address]: SONYA SARMIENTO,ROSA Zarate SPDESC: 1ST/VENOUS ORDERED: BLOOD CULTURE Procedure Result > BLOOD CULTURE REPORT Final 04/01/17 GRAM STAIN SUGGESTIVE OF: GRAM POSITIVE COCCI IN CHAINS Called to/Readback by MAC by [facility]IL[facility] 03/30/171121 Called to/Readback by DR LOU by [facility] 03/30/17 1135 CULTURE: ALPHA STREP PEC #: [id number] MAURO: 03/30/17 STATUS: COMP RECD: 03/30/[address]: FREEDOM SARMIENTO,ALESIA SOURCE: BODY FLUID ENTR: 03/30/17-[address]: CHRISTA SARMIENTO, ELVA SPDESC: KAYA HASSAN MD,ROSA Zarate ORDERED: BODY FLD CULTUR COMMENT: ADDITIONAL INFORMATION: BILE FROM GALL BLADDER Procedure Result > GRAM STAIN Final 03/31/17-113 WHITE BLOOD CELLS MANY GRAM POSITIVE COCCI MODERATE SOME IN CHAINS GRAM NEGATIVE RODS RARE > BODY FLUID CULTURE Final 04/02/17-0756 Heavy growth of: 1. ENTEROBACTER CLOACAE 2. ALPHA STREP Called to/Readback by [email or web address].[email or web address] by [facility].OSMAN 03/31/17 1146 1. ENTEROBACTER CLOACAE RX AB ------ -- AMPICILLIN R CEFAZOLIN R AMOXICILLIN/CLAVULINIC ACID R AMPICILLIN/SULBACTAM R CEFOXITIN R CEFTAZIDIME S CEFTRIAXONE S CIPROFLOXACIN S GENTAMICIN S TRIMETHOPRIM/SULFAMETHOXAZOLE S Recent Imaging Studies: CXR SERVICE DATE: 03/31/17-1322 EXAM TYPE: RAD - XRY-PORTABLE CHEST XRAY EXAMINATION: XR PORTABLE CHEST CLINICAL INFORMATION: Shortness of breath, wheezing and crackles. COMPARISON: 03/30/2017 TECHNIQUE: Portable frontal view of the chest was obtained. FINDINGS: Again noted is the large cardiac silhouette and the replaced mitral valve. Surgical changes of remote coronary artery bypass grafting with intact sternotomy wires in place. The right atrial and biventricular pacing leads are in their expected positions. Again noted are the prominent hilar vessels. However, no evidence of interstitial edema, focal consolidation or overt pleural effusion. IMPRESSION: 1. Cardiomegaly and vascular congestion without pulmonary edema. 2. No evidence of pneumonia. DICTATED BY: GANESH GATES MD DATE/TIME DICTATED:03/31/171402 OLIVE PITTER:COLE DATE/TIME TRANSCRIBED:03/31/171402 CT abd 03/30 CLINICAL INFORMATION: Epigastric pain with worsening of septic symptoms, status post attempted ultrasound guided cholecystostomy tube. COMPARISON: CTA from one day prior. TECHNIQUE: Multidetector volumetric imaging was performed of the abdomen following administration of oral and 95 mL Optiray 320 intravenous contrast. Sagittal and coronal reformatted images were obtained on the technologist's workstation. DLP: 353 mGy-cm FINDINGS: LUNG BASES: There are small bilateral pleural effusions with overlying atelectasis. The heart is enlarged. LIVER, GALLBLADDER, AND BILIARY TREE: The gallbladder remains distended with pericholecystic inflammatory changes. There is a single calcified stone that may be in the cystic duct. No evidence of perforation or perihepatic abscess. The remainder of the exam is unchanged from the day prior. IMPRESSION: Findings remain consistent with acute cholecystitis. There is a safe window for CT-guided cholecystostomy tube. There is no evidence of perforation or free air. DICTATED BY: MARTELL CORNELIUS MD DATE/TIME DICTATED:03/31/17921 OLIVE PITTER:COLE DATE/TIME TRANSCRIBED:03/31/17921 Assessment/Plan Impression: 81 y/o M known with cardiomyopathy with low ejection fraction, coronary artery disease s/p previous CABG and angioplasty, biV AICD, diastolic heart disease, left ventricular hypertrophy, [id number] aortic stenosis, mild mitral regurgitation, atrial fibrillation not on anticoagulation admitted with sepsis on 03/29/17 in the setting of acute cholecystitis; status post CT-guided cholecystotomy tube with yoselin pus aspirated (cx positive Enterobacter/heron strep spp and blood cultures positive 2 out of 2 heron strep spp). Clinically improved; no fever; leukemoid reaction on admission; WBC trending down. Suggestion: 1. Increase Ceftriaxone 2 g IV every 24 hour D #1; ESR/CRP in am; BEHZAD r/o IE. Please check with microbiology lab if possible to identify the the heron strep organism and/or run sensitivity (to PCN, CTX, Vanco). 2. Repeat BC x2 in am. 3. Obtain EKG; if no QT prolongation add Cipro 500 mg po bid as Enterobacter Amp C producing beta lactamase organism.
[2017-04-02 14:59] VITALS: BP 100/58
[2017-04-02 18:05] LABS: PTT 60 SEC (25-37)
--- NOTE | 2017-04-02 19:46 | NUR ---
PT T-TUBE SITE IS DRAINING FROM THE SITE. HAD TO CHANGE THE DRESSING 4X TODAY. ONLY 4ML OF BROWN THICK DRAINAGE DRAINED INTO BAG. MOST DRAINAGE IS DRAINING FROM THE SITE. TEACHER VISUALLY IMPAIRED ANA GOMEZ AND THE INFECTIONS DISEASE DR. NO FURTHER INSTRUCTIONS AT THIS TIME. DRESSING CHANGED AND GAUZE DRESSING APPLIED UNDER TEGEDERM. WILL CONTINUE TO MONITOR PT.
[2017-04-02 21:30] VITALS: BP 118/68
[2017-04-03 06:20] VITALS: BP 112/64
[2017-04-03 08:27] LABS: ABSOLUTE BASOPHIL COUNT 0 /CUMM (0.0-0.2); ABSOLUTE EOSINOPHIL COUNT 0.3 /CUMM (0.0-0.7); ABSOLUTE GRANULOCYTE CT 9.1 /CUMM (1.4-6.5); ABSOLUTE LYMPH COUNT 0.9 /CUMM (1.2-3.4); ABSOLUTE MONOCYTE COUNT 1.6 /CUMM (0.10-0.60); BASOPHIL % 0.3 % (0.0-2.0); EOSINOPHIL % 2.6 % (0-5); GRANULOCYTE % 76.2 % (42.2-75.2); MEAN CORPUSCULAR HGB 30.7 PG (27.0-31.0); MEAN CORPUSCULAR HGB CONC 33.6 G/DL (33.0-37.0); MEAN CORPUSCULAR VOLUME 91.5 FL (80.0-94.0); MEAN PLATELET VOLUME 9.2 FL (7.4-10.4); PLATELET COUNT 244 /CUMM (130-400); PT 16.7 SEC (9.4-12.5); RBC DISTRIBUTION WIDTH 13.7 % (11.5-14.5); RED BLOOD CELL CT 3.49 /CUMM (4.70-6.10); WHITE BLOOD CELL COUNT 11.9 /CUMM (4.8-10.8)
[2017-04-03 09:14] LABS: PTT 43 SEC (25-37)
--- NOTE | 2017-04-03 10:00 | PN- Pulmonary ---
Subjective HPI/Critical Care Issues: Stable Mild leak around the merary tube Objective Current Medications: Current Medications Sig/Violetta Start time Last Medication Dose Route Stop Time Status Admin Acetaminophen 650 MG Q6P PRN 03/30 0045 AC 04/01 PO 0839 Albuterol Sulfate 3 ML Q4H PRN 03/30 0830 AC 04/01 INH 0550 Carvedilol 12.5 MG BID 04/03 1000 AC PO Carvedilol 6.25 MG BID 03/30 1000 DC 04/02 PO 2125 Ceftriaxone Sodium 2,000 MG DAILY 04/03 1000 AC IV Ceftriaxone Sodium 1,000 MG DAILY 04/02 1000 DC 04/02 IV 1359 Ciprofloxacin 500 MG BID 04/03 1000 CAN PO 04/07 0959 Ciprofloxacin 500 MG BID 04/02 2200 CAN PO 04/06 2159 Docusate Sodium 100 MG BID 03/31 2200 AC 03/31 PO 2127 Dofetilide 250 MCG BID 03/30 1200 AC 04/02 PO 2125 Furosemide 20 MG 0730,1630 04/02 0730 AC 04/02 IV 1613 Heparin Sodium/ 25,000 UNIT Q24H 03/30 2315 AC 04/02 Dextrose IV 2127 Dextrose/Water 500 ML Isosorbide 60 MG DAILY 03/31 1000 AC 04/02 Mononitrate PO 1037 Melatonin 5 MG AT BEDTIME 03/30 2200 AC 04/02 PO 2124 Morphine Sulfate 2 MG Q4P PRN 03/30 0045 AC 03/31 IV 2126 Oxycodone HCl 5 MG Q12 04/01 2200 AC 04/02 PO 2126 Polyethylene Glycol 17 GM DAILY 04/01 1000 AC PO Warfarin Sodium 7.5 MG AT BEDTIME 04/02 2200 DC 04/02 PO 04/02 Vital Signs & I&O Last 24 Hrs of Vitals and I&O: Vital Signs Date Time Temp Pulse Resp B/P B/P Pulse O2 O2 Flow FiO2 Mean Ox Delivery Rate 04/03 620 98.9 79 20 112/64 95 Room Air 04/02 2130 93 Room Air 04/02 2130 99.3 90 24 118/68 93 Room Air 04/02 2125 90 118/68 04/02 2021 96 Room Air 04/02 1459 98.7 76 20 100/58 95 Nasal 2.0L Cannula 04/02 1041 76 132/68 04/02 1038 76 132/68 04/02 1037 76 Intake & Output 04/03 1600 04/03 0800 04/03 0000 Intake Total 189.6 656.8 Output Total 800 1000 Balance -610.4 -343.2 Intake, IV 189.6 176.8 Intake, Oral 480 Output, Urine 800 1000 Patient 201 lb Weight Impression/Plan Impression/Plan Impression/Plan: Physical Exam General Appearance: alert, awake, mild distress Comments: Well-developed well-nourished person in no acute distress HEENT: . Pupils equally round and reactive to light and accommodation. Nose is atraumatic. External auditory canal and Tympanic membranes clear. Pharynx normal. No swelling or edema. Moist oromucosa. Neck: Supple, no lymphadenopathy, normal range of motion without pain or tenderness Back: Nontender Cardiovascular: Regular rate and rhythms , positive murmur auscultated along the left sternal border consistent with aortic stenosis, normal JVP Respiratory: Chest nontender. Mild to moderate respiratory distress.positive increased work of breathing .breath sounds slightly diminished to auscultation bilaterally Abdomen: Cholecystotomy tube in place Normal bowel sounds. Extremity: No edema, no calf tenderness to palpation, normal and equal pulses. Able to move all extremities without difficulties or pain. Technical Coordinator strength is equal and symmetric bilaterally. Neuro: Alert oriented x3, motor sensory normal, cranial nerves II through XII grossly intact. Skin: No appreciable rash on exposed skin, slightly diaphoretic. Psych: Mood and affect is normal, memory and judgment is normal. CUlture enterobacter and alpha strep IMPRESSION This is a gentleman with significant cardiomyopathy with low ejection fraction, extensive cardiac history with coronary artery disease with previous CABG and angioplasty, previous AICD, diastolic heart disease, left ventricular hypertrophy, [id number] aortic stenosis, mild mitral regurgitation, atrial fibrillation not on anticoagulation, now comes in with * Resolved sepsis with acute cholecystitis, status post CT-guided cholecystotomy tube with Neil plus aspirated. Patient is growing alpha strep and his blood 2 out of 2, enterobacter aswell from the gb drainage * May have choledochal stone * Resolved Hypotension related to sepsis * Severe ischemic heart disease with significant cardiomyopathy with low ejection fraction with elevated troponin due to non-ST segment elevation MT/ demand, now with nsvt and arrythmia * Paroxysmal atrial fibrillation on antiarrhythmic agent was on warfarin with High INR, initially now it's been reversed with vitamin K and multiple FFP prior to procedure. Patient is now on heparin drip being started on warfarin again * Hypertension hyperlipidemia valvular heart disease as noted above * Recent fluid overload s/p DIuresis * REcent mild diarrhea RECOMMENDATION * Cont Heparin and cholecystostomy tube * abx per id * Watch for pulmonary edema * Continue cardiac medications as ordered, DC proton pump inhibitor, minimize oxycodone, * REplace lytes * Warfarin 7.5 mg tonight and cont heparin GI eval needs to be done for ruling out biliary duct stone if has any Hospitalist svc to take over
--- NOTE | 2017-04-03 12:12 | PN- Cardiology ---
Subjective Subjective: No complaints. Small leak around colostomy tube noted. Objective Vital Signs and I&Os Vital Signs Date Time Temp Pulse Resp B/P B/P Pulse O2 O2 Flow FiO2 Mean Ox Delivery Rate 04/03 1045 79 112/64 04/03 0620 98.9 79 20 112/64 95 Room Air 04/02 2130 93 Room Air 04/02 2130 99.3 90 24 118/68 93 Room Air 04/02 2125 90 118/68 04/02 2021 96 Room Air 04/02 1459 98.7 76 20 100/58 95 Nasal 2.0L Cannula Intake & Output 04/03 1600 04/03 0800 04/03 0000 04/02 1600 04/02 0800 04/02 0000 Intake Total 189.6 656.8 984.6 424 200 Output Total 800 1000 764 235 250 Balance -610.4 -343.2 220.6 189 -50 Intake, IV 189.6 176.8 224.6 184 80 Intake, Oral 480 760 240 120 Number 2 Bowel Movements Output, Other 4 35 25 Output, Urine 800 1000 760 200 225 Patient 201 lb 202 lb Weight Weight Chair scale Measurement Method Physical Exam: Well-developed, well-nourished elderly male in no acute distress with nasal oxygen in place. Vital signs: See above. Neck: No JVD, no bruits. Lungs: Basilar crackles. Heart: S1, S2 with grade 1-2/6 systolic ejection type murmur best heard near the base. Abdomen: Soft, nontender, positive bowel sounds. Drainage tube in place. Extremities: No edema. Current Medications: Current Medications Sig/Violetta Start time Last Medication Dose Route Stop Time Status Admin Acetaminophen 650 MG Q6P PRN 03/30 0045 AC 04/01 PO 0839 Albuterol Sulfate 3 ML Q4H PRN 03/30 0830 AC 04/01 INH 0550 Carvedilol 12.5 MG BID 04/03 1000 AC 04/03 PO 1045 Carvedilol 6.25 MG BID 03/30 1000 DC 04/02 PO 2125 Ceftriaxone Sodium 2,000 MG DAILY 04/03 1000 AC 04/03 IV 1044 Ceftriaxone Sodium 1,000 MG DAILY 04/02 1000 DC 04/02 IV 1359 Ciprofloxacin 500 MG BID 04/03 1000 CAN PO 04/07 0959 Ciprofloxacin 500 MG BID 04/02 2200 CAN PO 07/20 2159 Docusate Sodium 100 MG BID 03/31 2200 AC 03/31 PO 2127 Dofetilide 250 MCG BID 03/30 1200 AC 04/03 PO 1045 Furosemide 20 MG 0730,1630 04/02 0730 AC 04/03 IV 1043 Heparin Sodium/ 25,000 UNIT Q24H 03/30 2315 AC 04/02 Dextrose IV 2127 Dextrose/Water 500 ML Isosorbide 60 MG DAILY 03/31 1000 AC 04/02 Mononitrate PO 1037 Melatonin 5 MG AT BEDTIME 03/30 2200 AC 04/02 PO 2124 Morphine Sulfate 2 MG Q4P PRN 03/30 0045 AC 03/31 IV 2126 Oxycodone HCl 5 MG Q12 04/01 2200 AC 04/03 PO 104 Polyethylene Glycol 17 GM DAILY 04/01 1000 AC PO Warfarin Sodium 7.5 MG AT BEDTIME 04/02 2200 DC 04/02 PO 04/02 Results Last 48 Hrs of Labs/Mics: Laboratory Tests 04/03/17 0540: Anion Gap 10, Estimated GFR > 60, BUN/Creatinine Ratio 35.7 H, C-Reactive Prot, Quant 1.9 H, C-React Prot High Sens > 15.0 H, PT 16.7 H, INR 1.60 H, APTT 43 H, CBC w Diff NO MAN DIFF REQ, RBC 3.49 L, MCV 91.5, MCH 30.7, RDW 13.7, MPV 9.2, Gran % 76.2 H, Lymphocytes % 7.8 L, Monocytes % 13.1 H, Eosinophils % 2.6, Basophils % 0.3, Absolute Granulocytes 9.1 H, Absolute Lymphocytes 0.9 L, Absolute Monocytes 1.6 H, Absolute Eosinophils 0.3, Absolute Basophils 0, PUBS MCHC 33.6, ESR Westergren 27 H 04/03/17 0500: APTT Cancelled 04/02/17 1705: APTT 60 H 04/02/17 0645: PT 14.9 H, INR 1.42 H 04/02/17 0451: Anion Gap 10, Estimated GFR > 60, Glucose 99, Calcium 8.6, Phosphorus 3.6, Magnesium 2.0, Total Bilirubin 1.0, AST 46, ALT 38, Albumin 3.0 L, APTT 76 H, CBC w Diff NO MAN DIFF REQ, RBC 3.29 L, MCV 91.4, MCH 31.0, RDW 13.8, MPV 8.9, Gran % 82.5 H, Lymphocytes % 5.9 L, Monocytes % 9.7 H, Eosinophils % 1.8, Basophils % 0.1, Absolute Granulocytes 13.2 H, Absolute Lymphocytes 0.9 L, Absolute Monocytes 1.6 H, Absolute Eosinophils 0.3, Absolute Basophils 0, PUBS MCHC 33.9 04/01/17 2200: APTT 50 H Assessment/Plan Assessment/Plan [id number] w/ hx of HTN, HLD, and coronary, valvular, dysrhythmic/conduction disease and cardiomyopathy recently admitted to [facility] following an episode of upper abdominal/chest discomfort with a "negative" evaluation at that time and who presented to the ED last night with hypotension, recurrent diaphoresis, weakness, and lower chest/upper abdominal discomfort, and elevated WBC count with radiographic findings consistent with acute cholecystitis, but also CXR evidence of HF following volume resuscitation, runs of NSVT, and positive troponin I. Given evidence of acute cholecystitis, cholecystotomy was performed 03/30/2017 by IR. Leak noted around colostomy tube. Have IR check colostomy tube. Continue present cardiac regimen of dofetilide, carvedilol, isosorbide mononitrate, furosemide, etc. Continue antimicrobial therapy as per ID. BEHZAD tentatively planned for tomorrow at 10:30. Please make nothing by mouth after midnight tonight. DVT prophylaxis being addressed. Continue telemetry? Yes
--- NOTE | 2017-04-03 13:27 | PN- Infect Dx ---
Subjective Subjective: Feeling better; cholecystostomy bilious drainage; no purulence. No fever. Review of Systems Comments: 12 points reviewed as noted, otherwise negative. Objective Last 24 Hrs of Vital Signs/I&O Vital Signs Date Time Temp Pulse Resp B/P B/P Pulse O2 O2 Flow FiO2 Mean Ox Delivery Rate 04/03 1045 79 112/64 04/03 0620 98.9 79 20 112/64 95 Room Air 04/02 2130 93 Room Air 04/02 2130 99.3 90 24 118/68 93 Room Air 04/02 2125 90 118/68 04/02 2021 96 Room Air 04/02 1459 98.7 76 20 100/58 95 Nasal 2.0L Cannula Intake & Output 04/03 1600 04/03 0800 04/03 0000 Intake Total 189.6 656.8 Output Total 800 1000 Balance -610.4 -343.2 Intake, IV 189.6 176.8 Intake, Oral 480 Output, Urine 800 1000 Patient 201 lb Weight Physical Exam Other Physical Findings: Well-developed well-nourished, in no acute distress HEENT: . Pupils equally round and reactive to light and accommodation. Nose is atraumatic. Moist oral mucosa. Neck: Supple, no lymphadenopathy, normal range of motion without pain or tenderness Cardiovascular: S1 S2 present , MARTHA 2/6 Respiratory: Chest nontender. Breath sounds slightly diminished to auscultation bilaterally Abdomen: Cholecystotomy tube in place. Normal bowel sounds. Extremity: No edema, no calf tenderness to palpation, normal and equal pulses. Neuro: Alert oriented x3, motor sensory normal, cranial nerves II through XII grossly intact. Skin: No rash. Psych: Mood and affect is normal, memory and judgment is normal. Results Last 24 Hours of Lab Results: Laboratory Tests 04/03 04/03 04/02 0540 0500 1705 Chemistry Sodium (137 - 145 mmol/L) 139 Potassium (3.5 - 5.1 mmol/L) 3.5 Chloride (98 - 107 mmol/L) 101 Carbon Dioxide (22 - 30 mmol/L) 28 Anion Gap (5 - 16) 10 BUN (9 - 20 mg/dL) 25 H Creatinine (0.7 - 1.2 mg/dL) 0.7 Estimated GFR (>60 ml/min) > 60 BUN/Creatinine Ratio (7 - 25 %) 35.7 H C-Reactive Prot, Quant (<1.0 mg/dL) 1.9 H C-React Prot High Sens (1.0 - 3.0 mg/L) > 15.0 H Coagulation PT (9.4 - 12.5 SEC) 16.7 H INR (0.90 - 1.17) 1.60 H APTT (25 - 37 SEC) 43 H Cancelled 60 H Hematology CBC w Diff NO MAN DIFF REQ WBC (4.8 - 10.8 /CUMM) 11.9 H RBC (4.70 - 6.10 /CUMM) 3.49 L Hgb (14.0 - 18.0 G/DL) 10.7 L Hct (42 - 52 %) 32.0 L MCV (80.0 - 94.0 FL) 91.5 MCH (27.0 - 31.0 PG) 30.7 RDW (11.5 - 14.5 %) 13.7 Plt Count (130 - 400 /CUMM) 244 MPV (7.4 - 10.4 FL) 9.2 Gran % (42.2 - 75.2 %) 76.2 H Lymphocytes % (20.5 - 51.1 %) 7.8 L Monocytes % (1.7 - 9.3 %) 13.1 H Eosinophils % (0 - 5 %) 2.6 Basophils % (0.0 - 2.0 %) 0.3 Absolute Granulocytes (1.4 - 6.5 /CUMM) 9.1 H Absolute Lymphocytes (1.2 - 3.4 /CUMM) 0.9 L Absolute Monocytes (0.10 - 0.60 /CUMM) 1.6 H Absolute Eosinophils (0.0 - 0.7 /CUMM) 0.3 Absolute Basophils (0.0 - 0.2 /CUMM) 0 PUBS MCHC (33.0 - 37.0 G/DL) 33.6 ESR Westergren (0 - 10 MM) 27 H Last 24 Hours of Onofre Results: SPEC #: [id number] MAURO: 04/03/17-1249 STATUS: RECD RECD: 04/03/17-[address]: NORMA SARMIENTO, REETUP SOURCE: BLOOD ENTR: 04/03/17-[address]: CHRISTA SARMIENTO, ELVA SPDESC: 2ND/VENOUS SONYA SARMIENTO,ROSA Zarate ORDERED: BLOOD CULTURE Procedure Result BLOOD CULTURE PENDING Recent Imaging Studies: CT abd: IMPRESSION: Findings remain consistent with acute cholecystitis. There is a safe window for CT-guided cholecystostomy tube. There is no evidence of perforation or free air. DICTATED BY: MARTELL CORNELIUS MD DATE/TIME DICTATED:03/31/17921 HUMAN RESOURCES SPECIALIST:COLE DATE/TIME TRANSCRIBED:03/31/17921 Assessment/Plan Impression: 81 y/o M known with cardiomyopathy with low ejection fraction, coronary artery disease s/p previous CABG and angioplasty, biV AICD, diastolic heart disease, left ventricular hypertrophy, [id number] aortic stenosis, mild mitral regurgitation, atrial fibrillation not on anticoagulation admitted with sepsis on 03/29/17 in the setting of acute cholecystitis; status post CT-guided cholecystotomy tube with yoselin pus aspirated (cx positive Enterobacter/heron strep spp and blood cultures positive 2 out of 2 heron strep spp). Leukocytosis; WBC continues to trend down. Suggestion: 1. Cont Ceftriaxone 2 g IV every 24 hour D #2; 2. F/U repeat BC's from today. 3. Obtain EKG; if no QT prolongation above 500 msec add Cipro 500 mg po bid as Enterobacter Amp C producing beta lactamase organism.
[2017-04-03 14:34] VITALS: BP 104/50
--- NOTE | 2017-04-03 14:42 | Event Note ---
Event Note Event Note: At around 2:00 PM patient had sustained run of V. tach 39 beats. Her magnesium level was sent she was given potassium and Dr. Llamas was made aware.
--- NOTE | 2017-04-03 15:14 | PN- Housestaff ---
MAYRA SARMIENTO,CLAIRE 04/03/17 1439: Subjective Follow-up For: -Acute Cholecystitis s/p CT guided percutaneous cholecystostomy tube on 03/30. -Positive troponins/Heart failure/runs of NSVT -H/O Atrial flutter status post ablation on tikosyn and Coumadin Complaints: no complaints Tele-Events Since Last Visit: Patient is atrially sensed and ventricularly paced rates 74-77. At about 313 in the morning patient had a 20 beat run of V. tach while he was sleeping. Subjective: Patient was seen and examined bedside. He has no complaints. He denies chest pain, shortness of breath, headache, palpitations, abdominal pain, dizziness, nausea or vomiting. Review of Systems Constitutional: Reports: no symptoms. EENTM: Reports: no symptoms. Cardiovascular: Reports: no symptoms. Respiratory: Reports: no symptoms. Gastrointestinal: Reports: no symptoms. Genitourinary: Reports: no symptoms. Musculoskeletal: Reports: no symptoms. Skin: Reports: no symptoms. Neurological/Psychological: Reports: no symptoms. Hematologic/Endocrine: Reports: no symptoms. Immunologic/Allergic: Reports: no symptoms. Objective Last 24 Hrs of Vital Signs/I&O Vital Signs Date Time Temp Pulse Resp B/P B/P Pulse O2 O2 Flow FiO2 Mean Ox Delivery Rate 04/03 1434 98.1 74 18 104/50 97 04/03 1421 74 104/50 04/03 1045 79 112/64 04/03 0620 98.9 79 20 112/64 95 Room Air 04/02 2130 93 Room Air 04/02 2130 99.3 90 24 118/68 93 Room Air 04/02 2125 90 118/68 04/02 2021 96 Room Air 04/02 1459 98.7 76 20 100/58 95 Nasal 2.0L Cannula Intake & Output 04/03 1600 04/03 0800 04/03 0000 Intake Total 189.6 656.8 Output Total 800 1000 Balance -610.4 -343.2 Intake, IV 189.6 176.8 Intake, Oral 480 Output, Urine 800 1000 Patient 201 lb Weight Physical Exam General Appearance: Alert, Oriented X3, Cooperative, No Acute Distress Skin: No Rashes, No Breakdown, No Significant Lesion Skin Temp/Moisture Exam: Warm/Dry Sepsis Skin Exam (color): Normal for Ethnicity HEENT: Atraumatic, PERRLA, EOMI, Mucous Membr. moist/pink Neck: Supple Cardiovascular: Regular Rate, Normal S1, Normal S2, Gallops, Rubs, 3/6 murmur at the lower left sternal border Lungs: patient has crackles on the left Abdomen: Normal Bowel Sounds, Soft, No Tenderness, No Masses Neurological: Normal Speech Extremities: No Clubbing, No Cyanosis, No Edema, Normal Pulses, No Tenderness/ Swelling Vascular: Normal Pulses Sepsis Peripheral Pulse Location: Radial Sepsis Peripheral Pulse Exam: Normal Current Medications: Current Medications Sig/Violetta Start time Last Medication Dose Route Stop Time Status Admin Acetaminophen 650 MG Q6P PRN 03/30 0045 AC 04/01 PO 0839 Albuterol Sulfate 3 ML Q4H PRN 03/30 0830 AC 04/01 INH 0550 Carvedilol 12.5 MG BID 04/03 1000 AC 04/03 PO 1045 Carvedilol 6.25 MG BID 03/30 1000 DC 04/02 PO 2125 Ceftriaxone Sodium 2,000 MG DAILY 04/03 1000 AC 04/03 IV 1044 Ceftriaxone Sodium 1,000 MG DAILY 04/02 1000 DC 04/02 IV 1359 Ciprofloxacin 500 MG BID 04/03 1000 CAN PO 04/07 0959 Ciprofloxacin 500 MG BID 04/02 2200 CAN PO 04/06 2159 Docusate Sodium 100 MG BID 03/31 2200 AC 03/31 PO 2127 Dofetilide 250 MCG BID 03/30 1200 AC 04/03 PO 1045 Furosemide 20 MG 0730,1630 04/02 0730 AC 04/03 IV 1043 Heparin Sodium 5,700 UNIT ONCE ONE 04/03 1400 DC 04/03 (Porcine) IV 04/03 1401 1422 Heparin Sodium/ 25,000 UNIT Q24H 03/30 2315 AC 04/02 Dextrose IV 2127 Dextrose/Water 500 ML Isosorbide 60 MG DAILY 03/31 1000 AC 04/03 Mononitrate PO 1421 Melatonin 5 MG AT BEDTIME 03/30 2200 AC 04/02 PO 2124 Morphine Sulfate 2 MG Q4P PRN 03/30 0045 AC 03/31 IV 2126 Oxycodone HCl 5 MG Q12 04/01 2200 AC 04/03 PO 1043 Polyethylene Glycol 17 GM DAILY 04/01 1000 AC PO Potassium Chloride 40 MEQ ONCE ONE 04/03 1415 DC 04/03 PO 04/03 1416 1421 Warfarin Sodium 7.5 MG AT BEDTIME 04/02 2200 DC 04/02 PO 04/02 2201 2125 Last 24 Hrs of Lab/Onofre Results Last 24 Hrs of Labs/Mics: Laboratory Tests 04/03/17 0540: Anion Gap 10, Estimated GFR > 60, BUN/Creatinine Ratio 35.7 H, Magnesium 1.9, C -Reactive Prot, Quant 1.9 H, C-React Prot High Sens > 15.0 H, PT 16.7 H, INR 1.60 H, APTT 43 H, CBC w Diff NO MAN DIFF REQ, RBC 3.49 L, MCV 91.5, MCH 30.7 , RDW 13.7, MPV 9.2, Gran % 76.2 H, Lymphocytes % 7.8 L, Monocytes % 13.1 H, Eosinophils % 2.6, Basophils % 0.3, Absolute Granulocytes 9.1 H, Absolute Lymphocytes 0.9 L, Absolute Monocytes 1.6 H, Absolute Eosinophils 0.3, Absolute Basophils 0, PUBS MCHC 33.6, ESR Westergren 27 H 04/03/17 0500: APTT Cancelled 04/02/17 1705: APTT 60 H Microbiology 04/03 1249 BLOOD: Blood Culture - RECD 04/03 0658 BLOOD: Blood Culture - RECD Assessment/Plan Assessment: Mr. Isai Greene is a 81-year-old male with a history of hypertension, dyslipidemia, and coronary heart disease/ischemic cardiomyopathy/ LBBB s/p CABG x, Atrial flutter s/p ablation and placement of Bi-V/AICD 2013 and initiation of Tikosyn, also currently on Coumadin, H/O CHF with moderately abnormal left ventricular ejection fraction estimated at 35% (echo ) was admitted to ICU for gram-negative sepsis secondary to acute cholecystitis. He is day 4 status post placement of a cholecystostomy tube for acute cholecystitis. Gram-negative sam identified as Enterobacter and patient is continued on ceftriaxone. Assessment and plan 1. Gram negative Bactremia alpha strep and Enterobacter PCs secondary to acute cholecystitis s/p CT guided percutaneous cholecystostomy tube placement on 03/30. -White count 10.9 today, 16 yesterday. Temp 98.1 -Antibiotics changed to ceftriaxone 2 g daily as per ID recommendation(to be changed to by mouth Ciprofloxacin and Amoxicillin to complete a 14 day course of treatment ) -ID consult appreciated -INR check colostomy tube as a leak has been noted. -Follow up repeat blood cultures 2. Positive troponins/Heart failure/runs of NSVT. 2/2 sepsis vs NSTEMI. trops trended down. On heparin drip -No chest discomfort at this time -Patient had a 20 beat run of V. tach last night and 39 beat run today. Patient denies palpitations or chest pain at this time. Dr. Llamas was made aware. Follow-up on magnesium levels, potassium is being given. -Patient on Tikosyn, avoid QTC prolonging drugs -We will continue anticoagulation, plan to increase the beta jamie dose if blood pressure tolerates -Patient has a BEHZAD planned for tomorrow at 10:[address] Llamas. Nothing by mouth after midnight 3. H/O Atrial flutter status post ablation on tikosyn and Coumadin. Holding Coumadin since admission. -Patient continued on heparin drip -Warfarin 7.5 tonight. 4. History of hypertension and dyslipidemia. -Continue present cardiac regimen of Tikosyn, carvedilol, isosorbide mononitrate , furosemide -Plan to restart statin DVT prophylaxis heparin Diet, heart healthy DNR/DNI Problem List: 1. Cholecystitis 2. Elevated troponin 3. Cholecystostomy care 4. Dyslipidemia 5. CHF (congestive heart failure) 6. Sepsis Pain Ratin Pain Location: N/A Pain Goal: Remain pain free Pain Plan: . Tomorrow's Labs & Rationales: CBCs, bep, Consulting Request: Consulting Specialty: General Surgery MARTELL MONZON MD 04/03/17 2472: Attending MD Review Statement Attending Statement Attending Statement: examined this patient, discuss w/resident/PA/LIGHTING ADVISER, agreed w/resident/PA/LIGHTING ADVISER, discussed with family, reviewed EMR data (avail), discussed with case mgmt, amended to note Attending Assessment/Plan: The patient was seen and discussed with house staff. Agree with the plan of care as outlined. Appreciate ID, Cardiology & Pulmonary input. For BEHZAD tomorrow morning. Continue Ceftriaxone.
[2017-04-03 18:53] LABS: PTT > 120 SEC (25-37)
--- NOTE | 2017-04-03 19:49 | NUR ---
LATE ENTRY - PATIENT HAD A 3 BEAT RUN OF VTACH @ 1040, A 4 BEAT RUN @ 1242, AND THEN A 39 BEAT RUN @ 1355. EVENTS REPORTED TO DR. NUNEZ & DR. GREEN. BRAND REPRESENTATIVE & RESIDENT TO REPORT TO DR. COPPOLA. PT ASYMPTOMATIC, VS STABLE. POTASSIUM REPLETED & MAGNESIUM LEVEL ADDED TO AM LABS.
[2017-04-03 22:00] VITALS: BP 92/50
[2017-04-04 03:07] LABS: PTT 66 SEC (25-37)
[2017-04-04 06:47] VITALS: BP 108/70
[2017-04-04 08:27] LABS: PT 27.5 SEC (9.4-12.5)
--- NOTE | 2017-04-04 11:32 | PN- Cardiology ---
Subjective Subjective: No complaints. Objective Vital Signs and I&Os Vital Signs Date Time Temp Pulse Resp B/P B/P Pulse O2 O2 Flow FiO2 Mean Ox Delivery Rate 04/04 0922 94 Room Air Room Air 04/04 0911 108/70 04/04 0910 108/70 04/04 0647 97.4 74 20 108/70 97 Room Air 04/04 0000 Room Air 04/03 2200 97.7 77 22 92/50 95 Room Air 04/03 2108 75 90/50 04/03 1950 95 Room Air 04/03 1434 98.1 74 18 104/50 97 04/03 1421 74 104/50 Intake & Output 04/04 1600 04/04 0800 04/04 0000 04/03 1600 04/03 0800 04/03 0000 Intake Total 216 456 550 189.6 656.8 Output Total 250 805 051 451 7299 Balance -34 -349 -100 -610.4 -343.2 Intake, IV 216 216 250 189.6 176.8 Intake, Oral 0 240 300 480 Number 1 Bowel Movements Output, Other 5 50 Output, Urine 250 800 178 020 8605 Patient 199 lb 201 lb Weight Physical Exam: Well-developed, well-nourished elderly male in no acute distress with nasal oxygen in place. Vital signs: See above. Neck: No JVD, no bruits. Lungs: Basilar crackles. Heart: S1, S2 with grade 1-2/6 systolic ejection type murmur best heard near the base. Abdomen: Soft, nontender, positive bowel sounds. Drainage tube in place. Extremities: No edema. Current Medications: Current Medications Sig/Violetta Start time Last Medication Dose Route Stop Time Status Admin Acetaminophen 650 MG Q6P PRN 03/30 0045 AC 04/01 PO 0839 Albuterol Sulfate 3 ML Q4H PRN 03/30 0830 AC 04/01 INH 0550 Carvedilol 12.5 MG BID 04/03 1000 AC 04/04 PO 0910 Ceftriaxone Sodium 2,000 MG DAILY 04/03 1000 AC 04/04 IV 0825 Docusate Sodium 100 MG BID 03/31 2200 AC 04/04 PO 0909 Dofetilide 250 MCG BID 03/30 1200 AC 04/04 PO 0909 Furosemide 20 MG 0730,1630 04/02 0730 AC 04/04 IV 0825 Heparin Sodium 5,700 UNIT ONCE ONE 04/03 1400 DC 04/03 (Porcine) IV 04/03 1401 1422 Heparin Sodium/ 25,000 UNIT Q24H 03/30 2315 DC 04/03 Dextrose IV 1726 Dextrose/Water 500 ML Isosorbide 60 MG DAILY 03/31 1000 AC 04/04 Mononitrate PO 0911 Lidocaine 0 .STK-MED ONE 04/04 1039 DC TOP Magnesium Sulfate 1 GM ONCE ONE 04/04 0930 AC Dextrose/Water 100 ML IV 04/04 1329 Melatonin 5 MG AT BEDTIME 03/30 2200 AC 04/03 PO 2107 Morphine Sulfate 2 MG Q4P PRN 03/30 0045 AC 03/31 IV 2126 Oxycodone HCl 5 MG Q12 04/01 2200 AC 04/04 PO 0910 Polyethylene Glycol 17 GM DAILY 04/01 1000 AC PO Potassium Chloride 40 MEQ ONCE ONE 04/03 1630 DC 04/03 PO 04/03 1631 1721 Potassium Chloride 40 MEQ ONCE ONE 04/03 1415 DC 04/03 PO 04/03 1416 1421 Warfarin Sodium 7.5 MG COUMADIN 1700 ONE 04/03 1700 DC 04/03 PO 04/03 1701 1721 Results Last 48 Hrs of Labs/Mics: Laboratory Tests 04/04/17 0630: Anion Gap 8, Estimated GFR > 60, BUN/Creatinine Ratio 34.3 H, Calcium 8.8, Magnesium 1.9, PT 27.5 H, INR 2.64 H 04/04/17 0220: APTT 66 H 04/03/17 1720: APTT > 120 *H 04/03/17 0540: Anion Gap 10, Estimated GFR > 60, BUN/Creatinine Ratio 35.7 H, Magnesium 1.9, C -Reactive Prot, Quant 1.9 H, C-React Prot High Sens > 15.0 H, PT 16.7 H, INR 1.60 H, APTT 43 H, CBC w Diff NO MAN DIFF REQ, RBC 3.49 L, MCV 91.5, MCH 30.7 , RDW 13.7, MPV 9.2, Gran % 76.2 H, Lymphocytes % 7.8 L, Monocytes % 13.1 H, Eosinophils % 2.6, Basophils % 0.3, Absolute Granulocytes 9.1 H, Absolute Lymphocytes 0.9 L, Absolute Monocytes 1.6 H, Absolute Eosinophils 0.3, Absolute Basophils 0, PUBS MCHC 33.6, ESR Westergren 27 H 04/03/17 0500: APTT Cancelled 04/02/17 1705: APTT 60 H Recent Imaging Studies: Transesophageal echocardiogram (04/04/2017): No echocardiographic evidence of infective endocarditis of the aortic, mitral, tricuspid, or pulmonic valves. Assessment/Plan Assessment/Plan [id number] w/ hx of HTN, HLD, and coronary, valvular, dysrhythmic/conduction disease and cardiomyopathy recently admitted to [facility] following an episode of upper abdominal/chest discomfort with a "negative" evaluation at that time and who presented to the ED last night with hypotension, recurrent diaphoresis, weakness, and lower chest/upper abdominal discomfort, and elevated WBC count with radiographic findings consistent with acute cholecystitis, but also CXR evidence of acute on chronic systolic HF following volume resuscitation, runs of NSVT, and positive troponin I. Given evidence of acute cholecystitis, cholecystotomy was performed 03/30/2017 by IR. Continue present cardiac regimen of dofetilide, carvedilol, isosorbide mononitrate, furosemide, etc. Continue antimicrobial therapy as per ID. BEHZAD was performed without difficulty and, fortunately, there were no findings to suggest valvular infective endocarditis. DVT prophylaxis being addressed. Continue telemetry? Yes
[2017-04-04 14:38] VITALS: BP 104/66
--- NOTE | 2017-04-04 14:41 | PN- Housestaff ---
MAYRA SARMIENTO,CLAIRE 04/04/17 1403: Subjective Follow-up For: -Acute Cholecystitis s/p CT guided percutaneous cholecystostomy tube on 03/30. -Positive troponins/Heart failure/runs of NSVT -H/O Atrial flutter status post ablation on tikosyn and Coumadin -GRAM NEGATIVE bacteremia Complaints: no complaints Tele-Events Since Last Visit: Dual-pacing, PVCs, rate 74-79 Subjective: Patient was seen and examined bedside patient states that he feels good, no complaints. As of the morning he was waiting for his BEHZAD. Review of Systems Constitutional: Reports: no symptoms. EENTM: Reports: no symptoms. Cardiovascular: Reports: no symptoms. Respiratory: Reports: no symptoms. Gastrointestinal: Reports: no symptoms. Genitourinary: Reports: no symptoms. Musculoskeletal: Reports: no symptoms. Skin: Reports: no symptoms. Neurological/Psychological: Reports: no symptoms. Objective Last 24 Hrs of Vital Signs/I&O Vital Signs Date Time Temp Pulse Resp B/P B/P Pulse O2 O2 Flow FiO2 Mean Ox Delivery Rate 04/04 0922 94 Room Air Room Air 04/04 0911 108/70 04/04 0910 108/70 04/04 0647 97.4 74 20 108/70 97 Room Air 04/04 0000 Room Air 04/03 2200 97.7 77 22 92/50 95 Room Air 04/03 2108 75 90/50 04/03 1950 95 Room Air 04/03 1434 98.1 74 18 104/50 97 Intake & Output 04/04 1600 04/04 0800 04/04 0000 Intake Total 216 456 Output Total 250 805 Balance -34 -349 Intake, IV 216 216 Intake, Oral 0 240 Number 1 Bowel Movements Output, Other 5 Output, Urine 250 800 Patient 199 lb Weight Physical Exam General Appearance: Alert, Oriented X3, Cooperative, No Acute Distress Skin: No Rashes, No Breakdown, No Significant Lesion Skin Temp/Moisture Exam: Warm/Dry Sepsis Skin Exam (color): Normal for Ethnicity HEENT: Atraumatic, EOMI, Mucous Membr. moist/pink Neck: Supple Cardiovascular: Normal S1, Normal S2, No Murmurs, Gallops, Rubs Lungs: Clear to Auscultation, Normal Air Movement Abdomen: Normal Bowel Sounds, Soft (tenderness near tube incision ) Neurological: Normal Speech Extremities: No Edema, Normal Pulses, No Tenderness/Swelling Vascular: Normal Pulses, Pulses Symmetrical Sepsis Peripheral Pulse Location: Radial Current Medications: Current Medications Sig/Violetta Start time Last Medication Dose Route Stop Time Status Admin Acetaminophen 650 MG Q6P PRN 03/30 0045 AC 04/01 PO 0839 Albuterol Sulfate 3 ML Q4H PRN 03/30 0830 AC 04/01 INH 0550 Carvedilol 12.5 MG BID 04/03 1000 AC 04/04 PO 0910 Ceftriaxone Sodium 2,000 MG DAILY 04/03 1000 AC 04/04 IV 0825 Docusate Sodium 100 MG BID 03/31 2200 AC 04/04 PO 0909 Dofetilide 250 MCG BID 03/30 1200 AC 04/04 PO 0909 Furosemide 20 MG 0730,1630 04/02 0730 AC 04/04 IV 0825 Heparin Sodium/ 25,000 UNIT Q24H 04/04 1245 AC Dextrose IV Dextrose/Water 500 ML Heparin Sodium/ 25,000 UNIT Q24H 03/30 2315 DC 04/03 Dextrose IV 1726 Dextrose/Water 500 ML Isosorbide 60 MG DAILY 03/31 1000 04/04 Mononitrate PO 0911 Lidocaine 0 .STK-MED ONE 04/04 1039 DC [facility] Magnesium Sulfate 1 GM ONCE ONE 04/04 0930 VA 04/04 Dextrose/Water 100 ML IV 04/04 1329 1231 Melatonin 5 MG AT BEDTIME 03/30 2200 04/03 PO 2107 Morphine Sulfate 2 MG Q4P PRN 03/30 0045 AC 03/31 IV 2126 Oxycodone HCl 5 MG Q12 04/01 2200 04/04 PO 0910 Patient Medication 1 ED .STK-MED ONE 04/04 1411 [facility] Teaching ED 04/04 1412 Polyethylene Glycol 17 GM DAILY 04/01 1000 AC PO Potassium Chloride 40 MEQ ONCE ONE 04/03 1630 DC 04/03 PO 04/03 1631 1721 Warfarin Sodium 6 MG COUMADIN 1700 ONE 04/04 1700 AC PO 04/04 1701 Warfarin Sodium 7.5 MG COUMADIN 1700 ONE 04/03 1700 DC 04/03 PO 04/03 1701 1721 Last 24 Hrs of Lab/Onofre Results Last 24 Hrs of Labs/Mics: Laboratory Tests 04/04/17 0630: Anion Gap 8, Estimated GFR > 60, BUN/Creatinine Ratio 34.3 H, Calcium 8.8, Magnesium 1.9, PT 27.5 H, INR 2.64 H 04/04/17 0220: APTT 66 H 04/03/17 1720: APTT > 120 *H Orders ECHO Findings: As per cardiology note BEHZAD found no evidence of infective endocarditis. Lines/Diet/Fluids Catheters/Tubes: drains Assessment/Plan Assessment: Mr. Isai Greene is a 81-year-old male with a history of hypertension, dyslipidemia, and coronary heart disease/ischemic cardiomyopathy/ LBBB s/p CABG x, Atrial flutter s/p ablation and placement of Bi-V/AICD 2013 and initiation of Tikosyn, also currently on Coumadin, H/O CHF with moderately abnormal left ventricular ejection fraction estimated at 35% (echo ) was admitted to ICU for gram-negative sepsis secondary to acute cholecystitis. He is day 5 status post placement of a cholecystostomy tube for acute cholecystitis. Alpha strep and Gram-negative sam identified as Enterobacter and patient is continued on ceftriaxone. Assessment and plan 1. Gram negative Bactremia Enterobacter and alpha strep secondary to acute cholecystitis s/p CT guided percutaneous cholecystostomy tube placement on 03/30. -White count 11.9 today, 16 yesterday. Temp 97.4 -Antibiotics changed to ceftriaxone 2 g daily as per ID recommendation(to be changed to by mouth Amoxicillin to complete a 14 day course of treatment ) -ID consult with Dr. Stauffer -Follow up repeat blood cultures -Speak with surgery regarding timing of cholecystectomy 2. Positive troponins/Heart failure/runs of NSVT. 2/2 sepsis vs NSTEMI. trops trended down. On heparin drip -No chest discomfort at this time -Patient had runs of V. tach today. Patient denies palpitations or chest pain at this time. Dr. Llamas was made aware. -Patient has normal magnesium at 1.9 normal calcium at 8.8 potassium 4.1 -Patient on Tikosyn, avoid QTC prolonging drugs like Cipro -We will continue anticoagulation, plan to increase the beta jamie dose if blood pressure tolerates -Patient has a BEHZAD planned for tomorrow at 10:[address] Llamas. Nothing by mouth after midnight. -As per Dr. Llamas BEHZAD was performed without difficulty and there were no findings to suggest valvular infective endocarditis 3. H/O Atrial flutter status post ablation on tikosyn and Coumadin. -Patient continued on heparin drip -INR is 2.6 for today -Warfarin 6.0 mgrams tonight. 4. History of hypertension and dyslipidemia. -Overnightpatient's blood pressure was found to be 90/50 and Coreg was held overnight Continue present cardiac regimen of Tikosyn, carvedilol, isosorbide mononitrate, furosemide -Plan to restart statin DVT prophylaxis heparin Morphine and oxycodone for pain Diet, heart healthy DNR/DNI Problem List: 1. Cholecystitis 2. Cholecystostomy care 3. CHF (congestive heart failure) 4. Sepsis 5. Dyslipidemia 6. Elevated troponin Pain Ratin Pain Location: None Pain Goal: Remain pain free Pain Plan: Pain and acetaminophen Tomorrow's Labs & Rationales: bep inr Consulting Request: Consulting Specialty: General Surgery MARTELL MONZON MD 04/04/17 0545: Attending MD Review Statement Attending Statement Attending MD Statement: examined this patient, discuss w/resident/PA/MODELING INSTRUCTOR, agreed w/resident/PA/MODELING INSTRUCTOR, reviewed EMR data (avail), discussed with nursing, discussed with case mgmt, reviewed images, amended to note Attending Assessment/Plan: The patient was seen and discussed with house staff. BEHZAD negative for vegetations. Appreciate ID follow-up. Agree with plan of care as outlined. I requested surgery to follow-up regarding eventual surgery.
--- NOTE | 2017-04-04 19:26 | ECHOCARDIOGRAM REPORT ---
DAYANA HERRING Age: 81 : Gender: M Exam Date: 04/04/2017 10:27 Exam Location: [address] Ht (in): 68 Wt (lb): 201 BSA: 2.12 BP: 112 / 64 Ordering Physician: HUA GREEN, Referring Physician: HUA GREEN MD Technologist: Armaan Olivas [facility] Room Number: 183-1 Indications: INFECTIVE ENDOCARDITIS Rhythm: Pacemaker Technical Quality: Good Medications TIVA Ease of Transducer Insertion No Difficulty Complications Technical Difficulty None. FINDINGS Left Ventricle Borderline left ventricular dilatation with moderate concentric left ventricular hypertrophy, abnormal septal motion consistent with pacemaker activation, hypokinetic septum and anterior wall with moderately abnormal left ventricular ejection fraction estimated at 35%. Pseudo-normal left ventricular filling pattern consistent with stage II diastolic dysfunction. Right Ventricle Normal right ventricular size and function with pacemaker wire noted in right ventricular cavity. Right Atrium Normal right atrium with pacemaker wire noted in right atrial cavity. Left Atrium Moderate left atrial dilatation. LA Appendage Normal appearing left atrial appendage. IA Septum Normal interatrial septum with no evidence of shunt flow by color Doppler or agitated saline ("bubble") study. Mitral Valve Moderate mitral annular calcification. Mitral annuloplasty ring noted. Thickened mitral valve leaflets. No evidence of vegetation on the mitral valve. Mild mitral regurgitation. Aortic Valve Trileaflet aortic valve. Diffuse thickening of the aortic valve leaflets with reduced excursion. No evidence of vegetation on the aortic valve. Mild to moderate aortic stenosis. Mild aortic regurgitation. Tricuspid Valve Normal appearing tricuspid valve. No evidence of vegetation on the tricuspid valve. Trace tricuspid regurgitation. Pulmonic Valve Pulmonic valve not well seen, but grossly normal. No evidence of vegetation on the pulmonic valve. Trace pulmonic regurgitation. Pericardium No pericardial effusion. Great Vessels Normal size aortic root. CONCLUSIONS No evidence of infective endocarditis on the mitral, aortic, tricuspid, or pulmonic valves. Brandon Llamas M.D. (Electronically Signed) Final Date: 04 April 2017 19:25 MEASUREMENTS (Male / Female) Normal Values
[2017-04-04 19:56] LABS: PTT 53 SEC (25-37)
[2017-04-04 22:54] VITALS: BP 112/70
[2017-04-05 03:58] LABS: ABSOLUTE BASOPHIL COUNT 0 /CUMM (0.0-0.2); ABSOLUTE EOSINOPHIL COUNT 0.5 /CUMM (0.0-0.7); ABSOLUTE GRANULOCYTE CT 7.8 /CUMM (1.4-6.5); ABSOLUTE MONOCYTE COUNT 1.3 /CUMM (0.10-0.60); BASOPHIL % 0.3 % (0.0-2.0); EOSINOPHIL % 4.3 % (0-5); GRANULOCYTE % 73.6 % (42.2-75.2); HEMATOCRIT 33.8 % (42-52); MEAN CORPUSCULAR HGB 30.5 PG (27.0-31.0); MEAN CORPUSCULAR HGB CONC 33.4 G/DL (33.0-37.0); MEAN CORPUSCULAR VOLUME 91.2 FL (80.0-94.0); MEAN PLATELET VOLUME 8.3 FL (7.4-10.4); PLATELET COUNT 269 /CUMM (130-400); RBC DISTRIBUTION WIDTH 13.7 % (11.5-14.5); WHITE BLOOD CELL COUNT 10.6 /CUMM (4.8-10.8)
[2017-04-05 04:05] LABS: PT 41.2 SEC (9.4-12.5)
[2017-04-05 04:08] LABS: PTT 85 SEC (25-37)
[2017-04-05 06:00] VITALS: BP 110/62
--- NOTE | 2017-04-05 09:29 | PN- Housestaff ---
MAYRA SARMIENTO,CLAIRE 04/05/17 0929: Subjective Follow-up For: -Acute Cholecystitis s/p CT guided percutaneous cholecystostomy tube on 03/30. -Positive troponins/Heart failure/runs of NSVT -H/O Atrial flutter status post ablation on tikosyn and Coumadin -GRAM NEGATIVE bacteremia Complaints: no complaints Subjective: Patient was seen and examined bedside patient states that he feels good, no complaints. Review of Systems Constitutional: Reports: no symptoms. Objective Last 24 Hrs of Vital Signs/I&O Vital Signs Date Time Temp Pulse Resp B/P B/P Pulse O2 O2 Flow FiO2 Mean Ox Delivery Rate 04/05 1422 97.6 74 20 108/62 96 Room Air 04/05 1013 76 110/62 04/05 1013 76 110/62 04/05 0600 98.1 76 18 110/62 96 Room Air 04/04 2254 98.9 98 20 112/70 97 04/04 2057 76 100/62 Intake & Output 04/05 1600 04/05 0800 04/05 0000 Intake Total 925 446 525.7 Output Total 1100 780 250 Balance -175 -334 275.7 Intake, IV 125 206 125.7 Intake, Oral 800 240 400 Number 0 Bowel Movements Output, Other 30 Output, Urine 1100 750 250 Patient 199 lb Weight Physical Exam General Appearance: Alert, Oriented X3, Cooperative, No Acute Distress Skin: No Rashes, No Breakdown, No Significant Lesion Skin Temp/Moisture Exam: Warm/Dry Sepsis Skin Exam (color): Normal for Ethnicity HEENT: Atraumatic, EOMI, Mucous Membr. moist/pink Neck: Supple Cardiovascular: Normal S1, Normal S2, No Murmurs, Gallops, Rubs Lungs: Clear to Auscultation, Normal Air Movement Abdomen: Normal Bowel Sounds, Soft, No Masses Neurological: Normal Speech Extremities: No Edema, Normal Pulses, No Tenderness/Swelling Vascular: Normal Pulses, Pulses Symmetrical Sepsis Peripheral Pulse Location: Radial Sepsis Peripheral Pulse Exam: Normal Current Medications: Current Medications Sig/Violetta Start time Last Medication Dose Route Stop Time Status Admin Acetaminophen 650 MG Q6P PRN 03/30 0045 AC 04/01 PO 0839 Albuterol Sulfate 3 ML Q4H PRN 03/30 0830 AC 04/01 INH 0550 Carvedilol 12.5 MG BID 04/03 1000 AC 04/05 PO 1013 Ceftriaxone Sodium 2,000 MG DAILY 04/03 1000 AC 04/05 IV 1014 Docusate Sodium 100 MG BID 03/31 2200 AC 04/05 PO 1013 Dofetilide 250 MCG BID 03/30 1200 AC 04/05 PO 1015 Furosemide 20 MG 0730,1630 / 0730 AC 04/05 IV 1014 Heparin Sodium 2,700 UNIT ONCE ONE 04/04 2100 DC 04/04 (Porcine) IV 04/04 2101 2158 Heparin Sodium/ 25,000 UNIT Q24H 04/04 1245 AC 04/04 Dextrose IV 2045 Dextrose/Water 500 ML Isosorbide 60 MG DAILY 03/31 1000 AC 04/05 Mononitrate PO 1013 Melatonin 5 MG AT BEDTIME 03/30 2200 AC 04/04 PO 2057 Morphine Sulfate 2 MG Q4P PRN 03/30 0045 AC 03/31 IV 2126 Oxycodone HCl 5 MG Q12 04/01 2200 AC 04/05 PO 1014 Oxycodone/ 1 TAB BID PRN 04/04 1915 AC Acetaminophen PO Polyethylene Glycol 17 GM DAILY 04/01 1000 AC 04/05 PO 1022 Senna/Docusate Sodium 2 TAB DAILY 04/05 1000 AC 04/05 PO 1014 Warfarin Sodium 6 MG COUMADIN 1700 ONE 04/04 1700 DC 04/04 PO 04/04 1701 1621 Last 24 Hrs of Lab/Onofre Results Last 24 Hrs of Labs/Mics: Laboratory Tests 04/05/17 1155: APTT 78 H 04/05/17 0320: PT 41.2 H, INR 3.98 H 04/05/17 0320: APTT 85 H, CBC w Diff NO MAN DIFF REQ, RBC 3.70 L, MCV 91.2, MCH 30.5, RDW 13.7, MPV 8.3, Gran % 73.6, Lymphocytes % 9.6 L, Monocytes % 12.2 H, Eosinophils % 4.3, Basophils % 0.3, Absolute Granulocytes 7.8 H, Absolute Lymphocytes 1.0 L, Absolute Monocytes 1.3 H, Absolute Eosinophils 0.5, Absolute Basophils 0, PUBS MCHC 33.4 04/04/17 1810: APTT 53 H Orders ECHO Findings: BEHZAD negative for vegetations Lines/Diet/Fluids Catheters/Tubes: drains Drains Still Needed? Yes Assessment/Plan Assessment: Mr. Isai Greene is a 81-year-old male with a history of hypertension, dyslipidemia, and coronary heart disease/ischemic cardiomyopathy/ LBBB s/p CABG x, Atrial flutter s/p ablation and placement of Bi-V/AICD 2013 and initiation of Tikosyn, also currently on Coumadin, H/O CHF with moderately abnormal left ventricular ejection fraction estimated at 35% (echo ) was admitted to ICU for gram-negative sepsis secondary to acute cholecystitis. He is day 6 status post placement of a cholecystostomy tube for acute cholecystitis. Alpha strep and Gram-negative sam identified as Enterobacter and patient is continued on ceftriaxone, pending progression to by mouth antibiotics on discharge. Assessment and plan 1. Gram negative Bactremia Enterobacter and alpha strep secondary to acute cholecystitis s/p CT guided percutaneous cholecystostomy tube placement on 03/30. -White count 10.6 today, 11.9 yesterday. Temp 97.6 -As per ID, continue ceftriaxone 2 g IV every day, currently on day 4. -Once ready for discharge it is recommended to start amoxicillin 875 mg by mouth twice a day and Cipro 500 mg 3 times a day. However as patient has long QT usually over 500 ms we are unsure if we can give Cipro. We consulted cardiology to determine if it is safe being that he is usually paced anyway. Dr. Llamas says that he will consult [employer] rep and follow-up. -ID recommends following up with CBC, BMP, magnesium level, ESR weekly -Follow up repeat blood cultures -As per Dr. Callaway patient should follow-up with him in 2 weeks. He needs to be cleared by cardiology before surgery so likely will be a few months before his cholecystectomy. 2. Positive troponins/Heart failure/runs of NSVT. 2/2 sepsis vs NSTEMI. trops trended down. He received heparin drip currently off. -No chest discomfort at this time -Patient had runs of V. tach yesterday, none today. Patient had normal magnesium yesterday at 1.9 normal calcium at 8.8 potassium 4.1 -Patient on Tikosyn, avoid QTC prolonging drugs like Cipro -We will continue anticoagulation, today we will discontinue heparin bridge, plan to increase the beta jamie dose if blood pressure tolerates -As per Dr. Llamas BEHZAD was performed without difficulty and there were no findings to suggest valvular infective endocarditis 3. H/O Atrial flutter status post ablation on tikosyn and Coumadin. -Patient continued on heparin drip -INR is 3.98 for today -Hold warfarin for tonight and INR tomorrow. 4. History of hypertension and dyslipidemia. -Patients blood pressure is currently stable at around 110/62 Continue present cardiac regimen of Tikosyn, carvedilol, isosorbide mononitrate, furosemide -Plan to restart statin DVT prophylaxis heparin Morphine and oxycodone for pain Diet, heart healthy DNR/DNI Problem List: 1. CHF (congestive heart failure) 2. Cholecystitis 3. Elevated troponin 4. Sepsis 5. Dyslipidemia 6. Cholecystostomy care Pain Ratin Pain Location: none Pain Goal: Remain pain free Pain Plan: acetaminophen Tomorrow's Labs & Rationales: inr bep. Consulting Request: Consulting Specialty: General Surgery MARTELL MONZON MD 04/05/17 6094: Attending MD Review Statement Attending Statement Attending MD Statement: examined this patient, discuss w/resident/PA/BUSHING AND BROACH OPERATOR, agreed w/resident/PA/BUSHING AND BROACH OPERATOR, reviewed EMR data (avail), discussed with nursing, discussed with case mgmt, amended to note Attending Assessment/Plan: The patient was seen and discussed with house staff. Appreciate ID follow-up. Patient will need total of [address] Mejia is suggesting Amoxacillin/Cipro. Dr. Llamas to discuss Cipro with Dr. Del Angel. QTc is most often > 500, however EKG shows paced beat. No further runs of vtach noted on monitor overnight.
--- NOTE | 2017-04-05 10:51 | PN- General Surgery ---
Surgical Brief Attending Note Brief Attending Note: Dr.Craig Shelby recommends 2 week follow up. Timing of cholecystectomy depends on cardiac clearance, but will likely be several months away.
--- NOTE | 2017-04-05 12:45 | PN- Infect Dx ---
Subjective Subjective: Patient is feeling well; no fever. Bilious drainage 30 cc overnight from the cholecystostomy tube. Review of Systems Comments: 12 points reviewed as noted, otherwise negative. Objective Last 24 Hrs of Vital Signs/I&O Vital Signs Date Time Temp Pulse Resp B/P B/P Pulse O2 O2 Flow FiO2 Mean Ox Delivery Rate 04/05 1013 76 110/62 04/05 1013 76 110/62 04/05 0600 98.1 76 18 110/62 96 Room Air 04/04 2254 98.9 98 20 112/70 97 04/04 2057 76 100/62 04/04 1438 97.9 99 20 104/66 96 Intake & Output 04/05 1600 04/05 0800 04/05 0000 Intake Total 446 525.7 Output Total 780 250 Balance -334 275.7 Intake, IV 206 125.7 Intake, Oral 240 400 Output, Other 30 Output, Urine 750 250 Patient 199 lb Weight Physical Exam Other Physical Findings: Well-developed well-nourished, in no acute distress HEENT: . Pupils equally round and reactive to light and accommodation. Nose is atraumatic. Moist oral mucosa. Neck: Supple, no lymphadenopathy, normal range of motion without pain or tenderness Cardiovascular: S1 S2 present , MARTHA 2/6 Respiratory: Chest nontender. Breath sounds slightly diminished to auscultation bilaterally Abdomen: Cholecystotomy tube in place. Normal bowel sounds. Extremity: No edema, no calf tenderness to palpation, normal and equal pulses. Neuro: Alert oriented x3, motor sensory normal, cranial nerves II through XII grossly intact. Skin: No rash. Psych: Mood and affect is normal, memory and judgment is normal. Results Last 24 Hours of Lab Results: Laboratory Tests 04/05 04/05 04/05 1155 0320 0320 Coagulation PT (9.4 - 12.5 SEC) 41.2 H INR (0.90 - 1.17) 3.98 H APTT (25 - 37 SEC) Pending 85 H Hematology CBC w Diff NO MAN DIFF REQ WBC (4.8 - 10.8 /CUMM) 10.6 RBC (4.70 - 6.10 /CUMM) 3.70 L Hgb (14.0 - 18.0 G/DL) 11.3 L Hct (42 - 52 %) 33.8 L MCV (80.0 - 94.0 FL) 91.2 MCH (27.0 - 31.0 PG) 30.5 RDW (11.5 - 14.5 %) 13.7 Plt Count (130 - 400 /CUMM) 269 MPV (7.4 - 10.4 FL) 8.3 Gran % (42.2 - 75.2 %) 73.6 Lymphocytes % (20.5 - 51.1 %) 9.6 L Monocytes % (1.7 - 9.3 %) 12.2 H Eosinophils % (0 - 5 %) 4.3 Basophils % (0.0 - 2.0 %) 0.3 Absolute Granulocytes (1.4 - 6.5 /CUMM) 7.8 H Absolute Lymphocytes (1.2 - 3.4 /CUMM) 1.0 L Absolute Monocytes (0.10 - 0.60 /CUMM) 1.3 H Absolute Eosinophils (0.0 - 0.7 /CUMM) 0.5 Absolute Basophils (0.0 - 0.2 /CUMM) 0 PUBS MCHC (33.0 - 37.0 G/DL) 33.4 04/04 1810 Coagulation APTT (25 - 37 SEC) 53 H Last 24 Hours of Onofre Results: SPEC #: [id number] MAURO: 04/03/17 STATUS: RES RECD: 04/03/[address]: NORMA SARMIENTO, REET SOURCE: BLOOD ENTR: 04/03/17-[address] [facility] [address]: CHRISTA SARMIENTO, ELVA SPDESC: 2ND/VENOUS SONYA SARMIENTO,ROSA Zarate ORDERED: BLOOD CULTURE Procedure Result > BLOOD CULTURE REPORT Preliminary 04/04/17 No growth after 1 day incubation. Specimen is examined continuously for 5 days before final report unless culture becomes positive. Recent Imaging Studies: BEHZAD 04/04/17 FINDINGS Left Ventricle Borderline left ventricular dilatation with moderate concentric left ventricular hypertrophy, abnormal septal motion consistent with pacemaker activation, hypokinetic septum and anterior wall with moderately abnormal left ventricular ejection fraction estimated at 35%. Pseudo-normal left ventricular filling pattern consistent with stage II diastolic dysfunction. Right Ventricle Normal right ventricular size and function with pacemaker wire noted in right ventricular cavity. Right Atrium Normal right atrium with pacemaker wire noted in right atrial cavity. Left Atrium Moderate left atrial dilatation. LA Appendage Normal appearing left atrial appendage. IA Septum Normal interatrial septum with no evidence of shunt flow by color Doppler or agitated saline ("bubble") study. Mitral Valve Moderate mitral annular calcification. Mitral annuloplasty ring noted. Thickened mitral valve leaflets. No evidence of vegetation on the mitral valve. Mild mitral regurgitation. Aortic Valve Trileaflet aortic valve. Diffuse thickening of the aortic valve leaflets with reduced excursion. No evidence of vegetation on the aortic valve. Mild to moderate aortic stenosis. Mild aortic regurgitation. Tricuspid Valve Normal appearing tricuspid valve. No evidence of vegetation on the tricuspid valve. Trace tricuspid regurgitation. Pulmonic Valve Pulmonic valve not well seen, but grossly normal. No evidence of vegetation on the pulmonic valve. Trace pulmonic regurgitation. Pericardium No pericardial effusion. Assessment/Plan Impression: 81 y/o M known with cardiomyopathy with low ejection fraction, coronary artery disease s/p previous CABG and angioplasty, biV AICD, diastolic heart disease, left ventricular hypertrophy, [id number] aortic stenosis, mild mitral regurgitation, atrial fibrillation not on anticoagulation admitted with sepsis on 03/29/17 in the setting of acute cholecystitis; status post CT-guided cholecystotomy tube with yoselin pus aspirated (cx positive Enterobacter/heron strep spp and blood cultures positive 2 out of 2 heron strep spp). Leukocytosis/resolved. Mild to moderate /BEHZAD negative vegetations Suggestion: 1. Cont Ceftriaxone 2 g IV every 24 hour D #4; 2. Once ready for discharge start Cipro 500 mg po bid and amoxicillin 875 mg po bid in order to complete total 28 d abx treatmnet. Please call if QT above 500 msec at baseline; as in this case Cipro not recommended. 3. Monitor CBC, BMP, magnesium level, ESR weekly. 4. F/U sx for elective cholecystostomy.
[2017-04-05 13:06] LABS: PTT 78 SEC (25-37)
[2017-04-05 14:22] VITALS: BP 108/62
--- NOTE | 2017-04-05 19:59 | PN- Cardiology ---
Subjective Subjective: No new complaints, but anxious to have a cholecystectomy. Objective Vital Signs and I&Os Vital Signs Date Time Temp Pulse Resp B/P B/P Pulse O2 O2 Flow FiO2 Mean Ox Delivery Rate 04/05 1422 97.6 74 20 108/62 96 Room Air 04/05 1013 76 110/62 04/05 1013 76 110/62 04/05 0600 98.1 76 18 110/62 96 Room Air 04/04 2254 98.9 98 20 112/70 97 04/04 2057 76 100/62 Intake & Output 04/05 1600 04/05 0800 04/05 0000 04/04 1600 04/04 0800 04/04 0000 Intake Total 1525 446 525.7 600 216 456 Output Total 2300 780 250 800 250 805 Balance -775 -334 275.7 -200 -34 -349 Intake, IV 125 206 125.7 200 216 216 Intake, Oral 1400 240 400 400 0 240 Number 0 1 Bowel Movements Output, Other 30 5 Output, Urine 2300 750 250 800 250 800 Patient 199 lb 199 lb Weight Physical Exam: Well-developed, well-nourished elderly male in no acute distress. Vital signs: See above. Lungs: Few bibasilar crackles. Heart: S1, S2 (diminished) with grade 1-2/6 systolic murmur. Extremities no edema. Current Medications: Current Medications Sig/Violetta Start time Last Medication Dose Route Stop Time Status Admin Acetaminophen 650 MG Q6P PRN 03/30 0045 AC 04/01 PO 0839 Albuterol Sulfate 3 ML Q4H PRN 03/30 0830 AC 04/01 INH 0550 Carvedilol 12.5 MG BID 04/03 1000 AC 04/05 PO 1013 Ceftriaxone Sodium 2,000 MG DAILY 04/03 1000 AC 04/05 IV 1014 Docusate Sodium 100 MG BID 03/31 2200 AC 04/05 PO 1013 Dofetilide 250 MCG BID 03/30 1200 AC 04/05 PO 1015 Furosemide 20 MG 0730,1630 04/02 0730 AC 04/05 IV 1800 Heparin Sodium 2,700 UNIT ONCE ONE 04/04 2100 DC 04/04 (Porcine) IV 04/04 2101 2158 Heparin Sodium/ 25,000 UNIT Q24H 04/04 1245 DC 04/04 Dextrose IV 2045 Dextrose/Water 500 ML Isosorbide 60 MG DAILY 03/31 1000 AC 04/05 Mononitrate PO 1013 Melatonin 5 MG AT BEDTIME 03/30 2200 AC 04/04 PO 205 Morphine Sulfate 2 MG Q4P PRN 03/30 0045 AC 03/31 IV 2126 Oxycodone HCl 5 MG Q12 04/01 2200 AC 04/05 PO 1014 Oxycodone/ 1 TAB BID PRN 04/045 AC Acetaminophen PO Polyethylene Glycol 17 GM DAILY 04/01 1000 AC 04/05 PO 1022 Senna/Docusate Sodium 2 TAB DAILY 04/05 1000 AC 04/05 PO 1014 Results Last 48 Hrs of Labs/Mics: Laboratory Tests 04/05/17 1155: APTT 78 H 04/05/17 0320: PT 41.2 H, INR 3.98 H 04/05/17 0320: APTT 85 H, CBC w Diff NO MAN DIFF REQ, RBC 3.70 L, MCV 91.2, MCH 30.5, RDW 13.7, MPV 8.3, Gran % 73.6, Lymphocytes % 9.6 L, Monocytes % 12.2 H, Eosinophils % 4.3, Basophils % 0.3, Absolute Granulocytes 7.8 H, Absolute Lymphocytes 1.0 L, Absolute Monocytes 1.3 H, Absolute Eosinophils 0.5, Absolute Basophils 0, PUBS MCHC 33.4 04/04/17 1810: APTT 53 H 04/04/17 0630: Anion Gap 8, Estimated GFR > 60, BUN/Creatinine Ratio 34.3 H, Calcium 8.8, Magnesium 1.9, PT 27.5 H, INR 2.64 H 04/04/17 0220: APTT 66 H Recent Imaging Studies: BEHZAD (04/04/2017): No evidence of infective endocarditis on the mitral, aortic, tricuspid, or pulmonic valves. Assessment/Plan Assessment/Plan 81-y-o-[id number]-m w/ hx of HTN, HLD, and coronary, valvular, dysrhythmic/conduction disease and cardiomyopathy recently admitted to [facility] following an episode of upper abdominal/chest discomfort with a "negative" evaluation at that time and who presented to the ED last night with hypotension, recurrent diaphoresis, weakness, and lower chest/upper abdominal discomfort, and elevated WBC count with radiographic findings consistent with acute cholecystitis, but also CXR evidence of acute on chronic systolic HF following volume resuscitation, runs of NSVT, and positive troponin I. Given evidence of acute cholecystitis, cholecystotomy was performed 03/30/2017 by IR. Continue present cardiac regimen of dofetilide, carvedilol, isosorbide mononitrate, furosemide, etc. Continue antimicrobial therapy as per ID. BEHZAD was performed without difficulty and, fortunately, there were no findings to suggest valvular infective endocarditis. The concern has been raised about the use of ciprofloxacin in the setting of pacemaker-induced bundle branch block and "prolonged" QT interval. Typically, biventricular pacing tends to decrease the QT interval compared to RV pacing and the potential for polymorphic ventricular tachycardia of the torsade de pointe type, however, I do think it would be reasonable to get input from EP and will be in touch with them in the morning. Further recommendations will follow. DVT prophylaxis being addressed. Continue telemetry? Yes
[2017-04-05 21:38] VITALS: BP 110/64
[2017-04-06 08:01] VITALS: BP 118/68
[2017-04-06 08:43] LABS: PT 34.4 SEC (9.4-12.5)
--- NOTE | 2017-04-06 10:49 | PN- Housestaff ---
MAYRA SARMIENTO,CLAIRE 04/06/17 1035: Subjective Follow-up For: Cholecystitis Atrial flutter status post ablation and placement of by ventricular AICD on Tikosyn Complaints: no complaints Tele-Events Since Last Visit: Patient is in D pacing rate 7476 no events Subjective: Patient was seen and examined bedside area he feels good no complaints. Review of Systems Constitutional: Reports: no symptoms. Cardiovascular: Reports: no symptoms. Respiratory: Reports: no symptoms. Gastrointestinal: Reports: no symptoms. Objective Last 24 Hrs of Vital Signs/I&O Vital Signs Date Time Temp Pulse Resp B/P B/P Pulse O2 O2 Flow FiO2 Mean Ox Delivery Rate 04/06 0850 75 118/68 04/06 0850 75 118/68 04/06 0801 97.6 75 18 118/68 96 Room Air 04/06 0000 Room Air 04/05 2151 75 110/64 04/05 2143 94 Room Air Room Air 04/05 2138 98.3 76 18 110/64 95 04/05 1422 97.6 74 20 108/62 96 Room Air Intake & Output 04/06 1600 04/06 0800 04/06 0000 Intake Total 150 350 Output Total 450 550 Balance -300 -200 Intake, IV 0 0 Intake, Oral 150 350 Number 0 0 Bowel Movements Output, Urine 450 550 Patient 200 lb Weight Weight Chair scale Measurement Method Physical Exam General Appearance: Alert, Oriented X3, Cooperative, No Acute Distress Skin: No Rashes, No Breakdown, No Significant Lesion Skin Temp/Moisture Exam: Warm/Dry Sepsis Skin Exam (color): Normal for Ethnicity Cardiovascular: Regular Rate, Normal S1, Normal S2, Gallops, Rubs, 4 out of 6 right upper sternal border murmur Lungs: left lower lobe crackles on inspiration. Abdomen: Soft, No Tenderness, No Masses, clean site of tube insertion. Vascular: Normal Pulses, Pulses Symmetrical Current Medications: Current Medications Sig/Violetta Start time Last Medication Dose Route Stop Time Status Admin Acetaminophen 650 MG Q6P PRN 03/30 0045 AC 04/01 PO 0839 Albuterol Sulfate 3 ML Q4H PRN 03/30 0830 AC 04/01 INH 0550 Carvedilol 12.5 MG BID 04/03 1000 AC 04/06 PO 0850 Ceftriaxone Sodium 2,000 MG DAILY 04/03 1000 AC 04/06 IV 0849 Docusate Sodium 100 MG BID 03/31 2200 AC 04/06 PO 0850 Dofetilide 250 MCG BID 03/30 1200 AC 04/06 PO 0850 Furosemide 20 MG 0730,1630 04/02 0730 AC 04/06 IV 0849 Heparin Sodium/ 25,000 UNIT Q24H 04/04 1245 DC 04/04 Dextrose IV 2045 Dextrose/Water 500 ML Isosorbide 60 MG DAILY 03/31 1000 AC 04/06 Mononitrate PO 0850 Melatonin 5 MG AT BEDTIME 03/30 2200 AC 04/05 PO 2151 Morphine Sulfate 2 MG Q4P PRN 03/30 0045 DC 03/31 IV 2126 Oxycodone HCl 5 MG Q12 04/01 2200 AC 04/05 PO 2151 Oxycodone/ 1 TAB BID PRN 04/04 1915 AC Acetaminophen PO Polyethylene Glycol 17 GM DAILY 04/01 1000 AC 04/06 PO 0849 Senna/Docusate Sodium 2 TAB DAILY 04/05 1000 AC 04/06 PO 0850 Last 24 Hrs of Lab/Onofre Results Last 24 Hrs of Labs/Mics: Laboratory Tests 04/06/17 0618: PT 34.4 H, INR 3.32 H 04/05/17 1155: APTT 78 H Assessment/Plan Assessment: Assessment Mr. Isai Greene is a 81-year-old male with a history of hypertension, dyslipidemia, and coronary heart disease/ischemic cardiomyopathy/ LBBB s/p CABG x, Atrial flutter s/p ablation and placement of Bi-V/AICD 2013 and initiation of Tikosyn, also currently on Coumadin, H/O CHF with moderately abnormal left ventricular ejection fraction estimated at 35% (echo ) was admitted to ICU for gram-negative sepsis secondary to acute cholecystitis. He is day 7 status post placement of a cholecystostomy tube for acute cholecystitis. Alpha strep and Gram-negative sam identified as Enterobacter and patient is continued on ceftriaxone, pending progression to by mouth antibiotics on discharge. Plan 1. Gram negative Bactremia Enterobacter and alpha strep secondary to acute cholecystitis s/p CT guided percutaneous cholecystostomy tube placement on 03/30. -Currently no sensitivities for the alpha strep -As per ID, continue ceftriaxone 2 g IV every day, currently on day 5. -Once ready for discharge it is recommended to start amoxicillin 875 mg by mouth twice a day and Cipro 500 mg 3 times a day until April 19. However as patient has long QT usually over 500 ms we are unsure if we can give Cipro. We consulted cardiology to determine if it is safe being that he is usually paced anyway. Dr. Llamas says that he will consult Dr. Del Angel, electrophysiology. -If patient is instead to be covered with ceftriaxone, patient would likely require a PICC line for continued antibiotics coverage. Currently patient's INR is 3.32 so PICC line will likely be done tomorrow. -ID recommends following up with CBC, BMP, magnesium level, ESR weekly -Follow up repeat blood cultures -As per Dr. Callaway patient should follow-up with him in 2 weeks. He needs to be cleared by cardiology before surgery so likely will be a few months before his cholecystectomy. -Patient has question as to how long the tube will stay and. He was told potentially until surgery but to talk to Dr. Callaway when he sees him in 2 weeks. 2. Positive troponins/Heart failure/runs of NSVT. 2/2 sepsis vs NSTEMI. Trops trended down. He received heparin drip, currently off. -No chest discomfort at this time -Patient had runs of V. 2 days ago, none since. Patient had normal magnesium last tested 2 days ago at 1.9, normal calcium at 8.8 potassium 4.1 -Patient on Tikosyn, avoid QTC prolonging drugs like Cipro -As per Dr. Llamas on BEHZAD there were no findings to suggest valvular infective endocarditis 3. H/O Atrial flutter status post ablation on tikosyn and Coumadin. -Patient no longer on heparin drip. -INR is 3.32 for today -Hold warfarin for tonight and INR tomorrow. 4. History of hypertension and dyslipidemia. -Patients blood pressure is currently stable at around 120/70 -Continue present cardiac regimen of Tikosyn, carvedilol, isosorbide mononitrate , furosemide -Plan to restart statin DVT prophylaxis heparin Morphine and oxycodone for pain Diet, heart healthy DNR/DNI Problem List: 1. CHF (congestive heart failure) 2. Cholecystostomy care 3. Cholecystitis 4. Elevated troponin 5. Supratherapeutic INR Pain Ratin Pain Location: None Pain Goal: Remain pain free Pain Plan: Morphine and oxycodone as needed for pain Tomorrow's Labs & Rationales: INR Consulting Request: Consulting Specialty: General Surgery MARTELL MONZON MD 04/06/17 1438: Attending MD Review Statement Attending Statement Attending MD Statement: examined this patient, discuss w/resident/PA/GRANT SPECIALIST, agreed w/resident/PA/GRANT SPECIALIST, reviewed EMR data (avail), discussed with nursing, discussed with case mgmt, amended to note Attending Assessment/Plan: The patient was seen and discussed with house staff. Appreciate Cardiology and ID input. Cipro would be contraindicated with h/o vtach and prolonged QTc. Dr. Mejia reviewed sensitivities and should be able to discharge tomorrow on Bactrim/Augmentin to complete total of 28 days of antibiotics. He will follow-up with surgery (Dr. Shelby) in 2 weeks. He wishes to have surgery prior than planned 12 weeks and will discuss that with surgery. He was advised that when he is ready for surgery that he will require preoperative cardiac evaluation with Dr. Llamas. Of note, his INR is still elevated. He was advised that Bactrim may elevate the INR and he will most likely require a lower dose of Coumadin and close monitoring as an outpatient. He stated that Dr. Mayer monitors his INR/ Coumadin and he will need to be notified.
--- NOTE | 2017-04-06 14:06 | PN- Infect Dx ---
Subjective Subjective: No fever; patient feeling much better. Cholecystostomy tube draining bile, w/o gross purulence. Review of Systems Comments: 12 points reviewed as noted, otherwise negative. Objective Last 24 Hrs of Vital Signs/I&O Vital Signs Date Time Temp Pulse Resp B/P B/P Pulse O2 O2 Flow FiO2 Mean Ox Delivery Rate 04/06 0850 75 118/68 04/06 0850 75 118/68 04/06 0801 97.6 75 18 118/68 96 Room Air 04/06 0000 Room Air 04/05 2151 75 110/64 04/05 2143 94 Room Air Room Air 04/05 2138 98.3 76 18 110/64 95 04/05 1422 97.6 74 20 108/62 96 Room Air Intake & Output 04/06 1600 04/06 0800 04/06 0000 Intake Total 150 350 Output Total 450 550 Balance -300 -200 Intake, IV 0 0 Intake, Oral 150 350 Number 0 0 Bowel Movements Output, Urine 450 550 Patient 200 lb Weight Weight Chair scale Measurement Method Physical Exam Other Physical Findings: Well-developed well-nourished, in no acute distress HEENT: AT/NC. No thruh Moist oral mucosa. Neck: Supple, no lymphadenopathy, normal range of motion without pain or tenderness Cardiovascular: S1 S2 present , MARTHA 2/6 Respiratory: Chest nontender. Breath sounds slightly diminished to auscultation bilaterally Abdomen: Cholecystotomy tube in place. Normal bowel sounds. Extremity: No edema, no calf tenderness to palpation, normal and equal pulses. Neuro: Alert oriented x3, cranial nerves II through XII grossly intact. Skin: No rash. Psych: Mood and affect is normal, memory and judgment is normal. Results Last 24 Hours of Lab Results: Laboratory Tests 04/06 0618 Coagulation PT (9.4 - 12.5 SEC) 34.4 H INR (0.90 - 1.17) 3.32 H Last 24 Hours of Onofre Results: COMMENT: ADDITIONAL INFORMATION: BILE FROM GALL BLADDER Procedure Result > GRAM STAIN Final 03/31/17-1138 WHITE BLOOD CELLS MANY GRAM POSITIVE COCCI MODERATE SOME IN CHAINS GRAM NEGATIVE RODS RARE > BODY FLUID CULTURE Final 04/02/17-0756 Heavy growth of: 1. ENTEROBACTER CLOACAE 2. ALPHA STREP Called to/Readback by CAITLYN by LAB.GEOK 03/31/17 1146 1. ENTEROBACTER CLOACAE RX AB ------ -- AMPICILLIN R CEFAZOLIN R AMOXICILLIN/CLAVULINIC ACID R AMPICILLIN/SULBACTAM R CEFOXITIN R CEFTAZIDIME S CEFTRIAXONE S CIPROFLOXACIN S GENTAMICIN S TRIMETHOPRIM/SULFAMETHOXAZOLE S Recent Imaging Studies: n/a Assessment/Plan Impression: 81 y/o M known with cardiomyopathy with low ejection fraction, coronary artery disease s/p previous CABG and angioplasty, biV AICD, diastolic heart disease, left ventricular hypertrophy, [id number] aortic stenosis, mild mitral regurgitation, atrial fibrillation not on anticoagulation admitted with sepsis on 03/29/17 in the setting of acute cholecystitis; status post CT-guided cholecystotomy tube with yoselin pus aspirated (cx positive Enterobacter/heron strep spp and blood cultures positive 2 out of 2 heron strep spp). Leukocytosis/resolved. Mild to moderate /BEHZAD negative vegetations Suggestion: 1. Cont Ceftriaxone 2 g IV every 24 hour D #5; 2. Once ready for discharge: (i) start Cipro 500 mg po bid in order to complete 14 d therapy and (ii) amoxicillin 875 mg po bid in order to complete total 28 d abx treatment ( longer course as patient w/ Strep viridans bacteremia and has a PM). Of note if treatment w/ Cipro not feasible due to side effect profile, oral bactrim DS 1 tab po BID is an option in order to complete total 14 d treatmnet. 3. CBC, BMP, INR, ESR weekly. 4. F/U sx for elective cholecystostomy. 5. F/u Dr. Rothman in 2 weeks from discharge.
[2017-04-06 14:40] VITALS: BP 124/62
--- NOTE | 2017-04-06 15:38 | PN- Cardiology ---
Subjective Subjective: No complaints. Objective Vital Signs and I&Os Vital Signs Date Time Temp Pulse Resp B/P B/P Pulse O2 O2 Flow FiO2 Mean Ox Delivery Rate 04/06 1440 98.2 103 18 124/62 98 Room Air 04/06 0850 75 118/68 04/06 0850 75 118/68 04/06 0801 97.6 75 18 118/68 96 Room Air 04/06 0000 Room Air 04/05 2151 75 110/64 04/05 2143 94 Room Air Room Air 04/05 2138 98.3 76 18 110/64 95 Intake & Output 04/06 1600 04/06 0800 04/06 0000 04/05 1600 04/05 0800 04/05 0000 Intake Total 985 938 5704 446 525.7 Output Total 846 930 8646 780 250 Balance -300 -200 -775 -334 275.7 Intake, IV 0 0 125 206 125.7 Intake, Oral 855 362 4463 240 400 Number 1 0 0 0 Bowel Movements Output, Other 30 Output, Urine 294 913 8655 750 250 Patient 200 lb 199 lb Weight Weight Chair scale Measurement Method Physical Exam: Well-developed, well-nourished elderly male in no acute distress. Vital signs: See above. Lungs: Few bibasilar crackles. Heart: S1, S2 (diminished) with grade 1-2/6 systolic murmur. Extremities no edema. Assessment/Plan Assessment/Plan 81-y-o-w-m w/ hx of HTN, HLD, and coronary, valvular, dysrhythmic/conduction disease and cardiomyopathy recently admitted to [facility] following an episode of upper abdominal/chest discomfort with a "negative" evaluation at that time and who presented to the ED last night with hypotension, recurrent diaphoresis, weakness, and lower chest/upper abdominal discomfort, and elevated WBC count with radiographic findings consistent with acute cholecystitis, but also CXR evidence of acute on chronic systolic HF following volume resuscitation, runs of NSVT, and positive troponin I. Given evidence of acute cholecystitis, cholecystotomy was performed 03/30/2017 by IR. Continue present cardiac regimen of dofetilide, carvedilol, isosorbide mononitrate, furosemide, etc. Continue antimicrobial therapy as per ID, but avoid the use of dofetilide with ciprofloxin in this pt with a BiV pacemaker/defibrillator, given the potential for a significant increase in the QTc and Torsade. BEHZAD was performed without difficulty and, fortunately, there were no findings to suggest valvular infective endocarditis. DVT prophylaxis being addressed. Continue telemetry? Yes
[2017-04-06] MEDS ORDERED: BACTRIM DS TAB1 EACH PO (18:00)
[2017-04-06] MEDS ORDERED: AMOXICILLIN875 M1 PO (18:00)
[2017-04-06] MEDS ORDERED: COREG12.5 M1 PO (18:00)
[2017-04-06 22:17] VITALS: BP 108/64
[2017-04-07 06:24] VITALS: BP 122/78
[2017-04-07 08:26] LABS: PT 23.6 SEC (9.4-12.5)
--- NOTE | 2017-04-07 08:39 | Patient Discharge Instructions ---
Discharge Instructions General Discharge Information You were seen/treated for: Acute cholecystitis s/p cholecystotomy tube Bacteremia You had these procedures: cholecystostomy Watch for these problems: fever, fast heart rate, diaphoresis, palpitations, right upper quandrant abdominal pain Special Instructions: 1. please follow up with Dr. Antony, Infectious Disease MD in 2 weeks 2.please follow up with surgeon Dr. Shelby in 2 weeks 3.please have weekly CBC, BMP, ESR levels drawn and report it to PCP Dr. Sexton 4. please f/u with your PCP within 1 week of discharge. 5. Please follow up with [facility] Dr. Llamas in one week 6. please take antibiotics as instructed. Diet Continue normal diet: Yes Recommended Diet: Heart Healthy Activity Full Activity/No Limits: Yes Activity Self Limited: Yes Acute Coronary Syndrome Inclusion Criteria At DC or during hospital stay patient has or had the following: ACS DIAGNOSIS No Discharge Core Measures Meds if any: Prescribed or Continued at Discharge Aspirin Yes Beta-Gertrude No Statin No Meds if any: NOT Prescribed or Continued at Discharge Congestive Heart Failure Inclusion Criteria At DC or during hospital stay patient has or had the following: CHF DIAGNOSIS No Discharge Core Measures Meds if any: Prescribed or Continued at Discharge DANIEL/ARB for EF <40% No Meds if any: NOT Prescribed or Continued at Discharge Cerebrovascular accident Inclusion Criteria At DC or during hospital stay patient has or had the following: CVA/TIA Diagnosis No Discharge Core Measures Meds if any: Prescribed or Continued at Discharge Meds if any: NOT Prescribed or Continued at Discharge Venous thromboembolism Inclusion Criteria VTE Diagnosis No VTE Type NONE VTE Confirmed by (Test) NONE Discharge Core Measures - Per Current guidelines, there needs to be overlap - treatment for the first 5 days of Warfarin therapy. - If discharged on Warfarin prior to 5 days of - overlap therapy, the patient will need to be - assessed for post discharge needs including - *Post discharge parental anticoagulation - *Warfarin and/or parental anticoagulation education - *Follow up date to check INR post discharge At least 5 days overlap therapy as Inpatient No Meds if any: Prescribed or Continued at Discharge Overlap Therapy Yes Note: Overlap Therapy is Warfarin and Anticoagulant Meds if any: NOT Prescribed or Continued at Discharge
[2017-04-07] MEDS ORDERED: BACTRIM DS TAB1 EACH PO (09:21)
[2017-04-07] MEDS ORDERED: COREG12.5 M1 PO (09:21)
[2017-04-07] MEDS ORDERED: AMOXICILLIN875 M1 PO (09:21)
[2017-04-07] MEDS ORDERED: ACIDOPHILUS1 EACH PO (10:12)
--- NOTE | 2017-04-07 10:12 | PN- Housestaff ---
MAYRA SARMIENTO,CLAIRE 04/07/17 1011: Subjective Follow-up For: Cholecystitis Complaints: no complaints Tele-Events Since Last Visit: Patient is dual paced rate 73-99 Subjective: She was seen and examined bedside. Patient feels great. Is asking when he'll be able to leave. Review of Systems Constitutional: Reports: no symptoms. Cardiovascular: Reports: no symptoms. Respiratory: Reports: no symptoms. Gastrointestinal: Reports: no symptoms. Genitourinary: Reports: no symptoms. Objective Last 24 Hrs of Vital Signs/I&O Vital Signs Date Time Temp Pulse Resp B/P B/P Pulse O2 O2 Flow FiO2 Mean Ox Delivery Rate 04/07 1041 99 122/78 04/07 1041 99 122/78 04/07 0718 97.7 99 18 97 Room Air 04/07 0624 122/78 04/06 2217 98.0 76 16 108/64 96 Room Air 04/06 2051 75 106/60 04/06 1440 98.2 103 18 124/62 98 Room Air Intake & Output 04/07 1600 04/07 0800 04/07 0000 Intake Total 120 450 Output Total 490 1050 Balance -370 -600 Intake, Oral 120 450 Number 0 Bowel Movements Output, Other 40 Output, Urine 450 1050 Patient 197 lb Weight Physical Exam General Appearance: Alert, Oriented X3, Cooperative, No Acute Distress Skin: No Rashes, No Breakdown, No Significant Lesion Skin Temp/Moisture Exam: Warm/Dry Sepsis Skin Exam (color): Normal for Ethnicity Cardiovascular: Regular Rate, Normal S1, Normal S2, Gallops, Rubs, 4 out of 6 right upper sternal border murmur Lungs: Clear to Auscultation, Normal Air Movement Abdomen: Normal Bowel Sounds, Soft, No Tenderness, No Hepatospenomegaly, No Masses, cholecystostomy tube Extremities: No Clubbing, No Cyanosis, No Edema, Normal Pulses, No Tenderness/ Swelling Current Medications: Current Medications Sig/Violetta Start time Last Medication Dose Route Stop Time Status Admin Acetaminophen 650 MG Q6P PRN 03/30 0045 AC 04/01 PO 0839 Albuterol Sulfate 3 ML Q4H PRN 03/30 0830 AC 04/01 INH 0550 Carvedilol 12.5 MG BID 04/03 1000 AC 04/07 PO 1041 Ceftriaxone Sodium 2,000 MG DAILY 07/17 1000 DC 04/06 IV 0849 Docusate Sodium 100 MG BID 03/31 2200 AC 04/07 PO 1040 Dofetilide 250 MCG BID 03/30 1200 AC 04/07 PO 1042 Furosemide 20 MG 0730,1630 / 0730 AC 04/07 IV 1041 Isosorbide 60 MG DAILY 03/31 1000 AC 04/07 Mononitrate PO 1041 Melatonin 5 MG AT BEDTIME 03/30 2200 AC 04/06 PO 2048 Oxycodone HCl 5 MG Q12 04/01 2200 AC 04/05 PO 2151 Oxycodone/ 1 TAB BID PRN 04/04 1915 AC 04/06 Acetaminophen PO 2048 Patient Medication 1 ED .STK-MED ONE 04/06 1354 DC Teaching ED 04/06 1355 Polyethylene Glycol 17 GM DAILY 04/01 1000 AC 04/07 PO 1042 Senna/Docusate Sodium 2 TAB DAILY 04/05 1000 AC 04/07 PO 1040 Last 24 Hrs of Lab/Onofre Results Last 24 Hrs of Labs/Mics: Laboratory Tests 04/07/17 0657: PT 23.6 H, INR 2.27 H Assessment/Plan Assessment: Assessment Mr. Isai Greene is a 81-year-old male with a history of hypertension, dyslipidemia, and coronary heart disease/ischemic cardiomyopathy/ LBBB s/p CABG x, Atrial flutter s/p ablation and placement of Bi-V/AICD 2013 and initiation of Tikosyn, also currently on Coumadin, H/O CHF with moderately abnormal left ventricular ejection fraction estimated at 35% (echo ) was admitted to ICU for gram-negative sepsis secondary to acute cholecystitis. He is day 7 status post placement of a cholecystostomy tube for acute cholecystitis. Alpha strep and Gram-negative sam identified as Enterobacter and patient is continued on ceftriaxone, pending progression to by mouth antibiotics on discharge. Plan 1. Gram negative Bactremia Enterobacter and alpha strep secondary to acute cholecystitis s/p CT guided percutaneous cholecystostomy tube placement on 03/30. -Currently no sensitivities for the alpha strep -As per ID, continue ceftriaxone 2 g IV every day, currently on day 6. -Once ready for discharge it is recommended to start amoxicillin 875 mg by mouth twice a day and Cipro 500 mg 3 times a day until April 19. However as patient has long QT usually over 500 ms on Tikosyn we are not able to give Cipro. Instead give Bactrim 14 days twice a day and the amoxicillin twice a day 875 mg for 28 days due to the strep viridans blood infection and presence of hardware. -ID recommends following up with CBC, BMP, magnesium level, ESR weekly and following up with Dr. Antony -Follow up repeat blood cultures -As per Dr. Callaway patient should follow-up with him in 2 weeks. He needs to be cleared by cardiology before surgery so likely will be a few months before his cholecystectomy.. -Give lactobacillus with abx prescription. 2. Positive troponins/Heart failure/runs of NSVT. 2/2 sepsis vs NSTEMI. Trops trended down. He received heparin drip, currently off. -No chest discomfort at this time -Patient had runs of V. 2 days ago, none since. Patient had normal magnesium last tested 2 days ago at 1.9, normal calcium at 8.8 potassium 4.1 -Patient on Tikosyn, avoid QTC prolonging drugs like Cipro -As per Dr. Llamas on BEHZAD there were no findings to suggest valvular infective endocarditis 3. H/O Atrial flutter status post ablation on tikosyn and Coumadin. -Patient no longer on heparin drip. -INR is 2.27 for today -On discharge send prescriptions for warfarin 2 mg to be taken Monday, and warfarin 4 mg to be taken Monday and Monday. 4. History of hypertension and dyslipidemia. -Patients blood pressure is currently stable at around 120/70 -Continue present cardiac regimen of Tikosyn, carvedilol, isosorbide mononitrate , furosemide -Plan to restart statin DVT prophylaxis heparin Morphine and oxycodone for pain Diet, heart healthy DNR/DNI Problem List: 1. Cholecystitis 2. Cholecystostomy care Pain Ratin Pain Location: None Pain Goal: Remain pain free Pain Plan: Oxycodone and acetaminophen for pain. Tomorrow's Labs & Rationales: Patient is stable for discharge today. Consulting Request: Consulting Specialty: General Surgery HEIDI PALMER 04/07/17 1253: Attending Review Statement Attending Statement Attending MD Statement: examined this patient, discuss w/resident/PA/[employer]ILL[employer] TARGETING TECHNICIAN, agreed w/resident/PA/FIELD ARTILL[employer] TARGETING TECHNICIAN, discussed with family, reviewed EMR data (avail), discussed with nursing, discussed with case mgmt, reviewed images, amended to note Attending Assessment/Plan: The patient was seen and discussed with house staff. Appreciate Cardiology and ID input. Cipro would be contraindicated with h/o vtach and prolonged QTc. Dr. Mejia reviewed sensitivities and should be able to discharge on Bactrim/ Augmentin to complete total of 28 days of antibiotics. He will follow-up with surgery (Dr. Shelby) in 2 weeks. He wishes to have surgery prior than planned 12 weeks and will discuss that with surgery. He was advised that when he is ready for surgery that he will require preoperative cardiac evaluation with Dr. Llamas. Of note, his INR is better today. He was advised that Bactrim may elevate the INR and he will most likely require a lower dose of Coumadin and close monitoring as an outpatient. He stated that Dr. Mayer monitors his INR/ Coumadin. CMR given with low dose of coumadin, Patient educated. family bedside
[2017-04-07 10:41] VITALS: BP 122/78
[2017-04-07] MEDS ORDERED: COUMADIN2 M1 PO (11:22)
[2017-04-07] MEDS ORDERED: COUMADIN4 M1 PO (11:22)
--- NOTE | 2017-04-07 14:36 | Discharge Summary ---
Visit Information Visit Dates Admission Date: 03/29/17 Discharge Date: 04/07/17 Hospital Course Course Attending Physician: MOR MONZON MD Primary Care Physician: SONYA SARMIENTO,ROSA Zarate Other Care Providers: Dr. John Shelby, Surgery Consulting Request: Consulting Specialty: Infectious Disease Hospital Course: Patient is a 81-year-old male with extensive cardiac history, CAD, aortic stenosis presenting to the emergency department with chief complaint of generalized malaise and weakness, episode of chest pain that lasted several hours. He described the pain as epigastric, achy, heavy. He notes the pain went away after he went to bed, no chest pain today. Reports shortness of breath that is worse with exertion. He was cutting the lawn outside yesterday in the heat and the symptoms started at sometime afterwards. He denied any fever and chills. Was nauseous but no vomiting. Denies any change in bowel habits last bowel movement was one day prior to presentation denies any urinary frequency urgency or dysuria. In the ED his temperature was 100.8, his pulse was tachycardic to 110 respirations were at a rate of 20, pulse ox 98, at 2 L nasal cannula. His blood pressure was hypotensive to 80/52. He met the criteria for sepsis. Total bilirubin elevated to 2.3 alkaline phosphatase 128 WBCs 24.1 hemoglobin 13.3 platelets 242 BUN/creatinine 18/0.9, AST/ALT33/31. Lactic acid was found to be 1.5 Chest x-ray was clear CT abdomen and pelvis was negative for aortic dissection but did show evidence of cholecystitis. CTA chest showed no evidence of aortic dissection or pulmonary embolism. Gallbladder findings were discussed with Dr. Callaway surgeon who recommended IR intervention with percutaneous cholecystostomy tube placement and reversal of supratherapeutic INR. Patient received vancomycin/cefotaxime/ceftriaxone/Flagyl the ED in addition to FFP and vitamin K. Patient received a total of 5 L of normal saline fluid resuscitation in the ED was continued on maintenance fluids. His transferred to the ICU and kept nothing by mouth for his procedure. A type and cross was done and he was transfused 4 units of FFP as well as vitamin K. In the ICU he was given high-dose Unasyn and pancultured. We held Lasix and other antihypertensive agents. Cholecystostomy tube placement was performed as his WBC was rising, blood pressure low, patient needed decompression of gallbladder. Patient was placed on ceftriaxone 2 g following the procedure. His blood cultures were positive for alpha strep and bile cultures are positive for alpha strep and gram-negative rods Enterobacter. His WBC counts began to normalize and he was afebrile more normal blood pressures. As patient had a long QTC and was on Tikosyn we avoided giving any QT prolonging drugs including ciprofloxacin which was initially suggested by ID. After the procedure we continued heparin and resumed warfarin. He was transferred to telemetry. Patient's cardiac regimen of carvedilol isosorbide mononitrate and furosemide were continued once his blood pressure could handle it. Due to his positive blood cultures he received a BEHZAD which effectively ruled out infective endocarditis. He was continued on ceftriaxone. Patient's INR was under control after altering Coumadin dose. On day of discharge his INR is 2.27. In telemetry patient had a 28 and 39 beat run of V. tach. His magnesium and potassium were normal. ID suggested discharging him on amoxicillin 875 mg twice a day and Cipro 500 mg 3 times a day. However as patient has long QT usually over 500 ms we decided to avoid Cipro and said give Bactrim for a total of 28 days. Patient was discharged with instructions to follow-up with Dr. Callaway for an elective cholecystectomy and to follow up with his PCP for weekly CBCs, BMP, ESR. We also would like him to see DONATO Fay Complications: Patient was found to have alpha strep blood cultures and Enterobacter. Patient is to be on antibiotics Bactrim for 28 days due to presence of pacemaker hardware. Allergies: Coded Allergies: NO KNOWN ALLERGIES (12/30/12) Significant Procedures: PROCEDURE: US AND CT PERCUTANEOUS ABSCESS DRAINAGE CLINICAL INFORMATION: 81-year-old male with sepsis felt due to acute cholecystitis. Significant comorbidities including heart disease with elevated troponin on this admission. COMPARISON: CTA from 03/29/2017 PHYSICIAN: Mor Lim MD Interventional Radiologist CONSENT: Informed consent was obtained from the patient prior to the procedure. During this process, the procedure and potential alternatives were explained along with the intended outcome and benefits. The risks of the procedure, including the possibility of an unsuccessful procedure, as well as the risk of not doing the procedure, were discussed. Opportunity was given to ask questions regarding the procedure and intact competence to make decisions was determined. A signed consent form documenting this discussion was placed in the medical record. SEDATION: The procedure was performed with intravenous conscious sedation, standard monitoring with a certified nurse for a total of 45 minutes. Ativan, morphine, Versed and Fentanyl were utilized, as per the electronic medical record. FLUOROSCOPY TIME: 31 seconds TECHNIQUE AND FINDINGS: A time-out procedure was performed. Initially, this procedure was attempted at the bedside in the intensive care unit with ultrasound guidance. The upper abdomen was draped and prepped in standard sterile fashion. A window cholecystostomy tube was identified with ultrasound, although it was very limited. The skin was anesthestized with 10 mL of 1% lidocaine. A 5 English Yueh needle was placed towards the gallbladder. However, due to the patient's rapid breathing with respiratory rates ranging from 40-50, this could not be performed safely. The procedure was aborted for CT guidance. After a follow-up CT scan, dictated separately, a safe window was determined. The patient was placed supine on the CAT scan table. Preprocedure CT imaging was performed, which redemonstrated the inflamed gallbladder and a safe window for drainage. The patient's right upper quadrant and lateral abdomen was prepped and draped in the usual sterile fashion. Local anesthetic with 10 mL 1% lidocaine was used. Using standard interventional and sterile technique a One-step needle was introduced into the gallbladder under real-time CT fluoroscopy. Purulent fluid was aspirated. A 0.035 inch wire was placed through the introducer catheter, with position of the wire confirmed using CT fluoroscopy. Serial dilation was performed. A 8.5 English drainage catheter was placed over the wire into the abscess. The wire was removed. The pigtail was formed. Position within the abscess was confirmed using CT fluoroscopy. The catheter was attached to a drainage bag. A total of 50 cc pus was removed at the time of procedure. Specimens were sent for microbiology. A final CT was performed through the area of interest, which demonstrates the catheter in appropriate position. There is no evidence of hematoma or adjacent organ damage. The patient tolerated the procedure well. There were no immediate complications. The patient returned to the intensive care unit in stable position. IMPRESSION: 1. Failed ultrasound-guided cholecystostomy tube at the bedside in intensive care unit, as described above. 2. Technically successful CT-guided cholecystostomy tube, as described above. Pertinent Lab Results: CAT - CT ABD & PELVIS ANGIOGRAM IMPRESSION: No evidence for aortic dissection. Distended gallbladder with wall thickening and pericholecystic fluid concerning for cholecystitis. Consider correlation with ultrasound for further tissue characterization. Sigmoid diverticulosis without evidence of diverticulitis. ECHO CONCLUSIONS No evidence of infective endocarditis on the mitral, aortic, tricuspid, or pulmonic valves. EKG Results HR 110 AL 152 QTc 515 Labs on admission: WBC 24.1, hemoglobin 13.3, hematocrit 39.5, neutrophils 94%, platelets 242, sodium 134, bicarbonate 22, anion gap 11, BUN 18 creatinine 0.9, total bilirubin 2.3, AST 33, ALT 31, alkaline phosphatase 128, troponin 0.15, proBNP 7010, albumin 3.4, lipase 69, lactic acid 1.5, INR 5.28 UA hazy, protein 100, ketone trace, positive nitrates, positive leukocyte esterase, granular cast, ESR 27 Troponins: On admission 0.15, increased to 1.6 to, 2.82, 3.74, 5.22, and then fell to 4.82 on 03/31. Labs on discharge: WBC 10.6, globulin 11.3, INR 2.27, potassium 4.1, sodium 139, BUN 24, creatinine 0.7, calcium 8.8, magnesium 1.9 Disposition Summary Disposition Principal Diagnosis: Acute cholecystitis Additional Diagnosis: Congestive heart failure Sepsis due to Enterobacter and alpha strep viridans NSVT Atrial flutter status post ablation on Tikosyn and Coumadin Hypertension Dyslipidemia Discharge Disposition: home health services Discharge Instructions General Discharge Information Code Status: Do Not Resucitate/Intubat Patient's Diet: Heart healthy Patient's Activity: As tolerated Follow-Up Instructions/Appts: Agent to follow-up with his PCP in 1 week. Patient to follow-up with Oly Rothman MD in 2 weeks. Patient to follow-up with Dr. Callaway surgery for elective cholecystectomy Patient to follow up on CBCs, BMP, ESR weekly and share with his PCP Medications at Discharge Discharge Medications: Stop taking the following medications: Carvedilol (Coreg) 6.25 MG TABLET ORAL TWICE DAILY Continue taking these medications: Dofetilide (Tikosyn) 250 MCG CAPSULE 1 Capsule ORAL TWICE DAILY Comments: Last Taken: 04/07 Time: 9 AM Magnesium Oxide (Magnesium) 400 MG CAPSULE 1 Capsule ORAL Every Morning Comments: NOT GIVEN AT HOSPITAL Furosemide (Lasix) 20 MG TABLET 1 Tablet ORAL Every Morning Comments: Last Taken: IV LASIX 06/08 Time: 10 AM Isosorbide Mononitrate (Isosorbide Mononitrate ER) 60 MG TAB.ER.24H 1 Tablet ORAL DAILY Comments: Last Taken: 04/07 Time: 10 AM Multivit-Min/FA/Lycopen/Lutein (A Thru Z Select Multivit Tab) 500 MCG-300 MCG- 250 MCG TABLET 1 Tablet ORAL DAILY Comments: Last Taken: NOT GIVEN AT HOSPITAL Time: Lisinopril (Lisinopril) 2.5 MG TABLET 1 Tablet ORAL Every Morning Comments: Last Taken:NOT GIVEN AT HOSPITAL Time: Atorvastatin Calcium (Lipitor) 80 MG TABLET 1 Tablet ORAL Every night Comments: Last Taken: NOT GIVEN AT HOSPITAL Time: Start taking the following new medications: Amoxicillin (Amoxicillin) 875 MG TABLET 1 Tablet ORAL TWICE DAILY Qty = 36 No Refills Instructions: . Comments: NOT GIVEN AT HOSPITAL Sulfamethoxazole/Trimethoprim (Bactrim Ds Tablet) 800 MG-160 MG TABLET 1 Tablet ORAL TWICE DAILY Qty = 10 No Refills Instructions: . Comments: NOT GIVEN AT HOSPITAL Carvedilol (Coreg) 12.5 MG TABLET 1 Tablet ORAL TWICE DAILY Qty = 60 No Refills Instructions: . Comments: Last Taken: 04/07 Time: 10 AM Lactobacillus Acidophilus (Acidophilus) 1 EACH CAPSULE 1 Capsule ORAL DAILY Qty = 30 No Refills Comments: NOT GIVEN AT HOSPITAL Warfarin Sodium (Coumadin) 4 MG TABLET 1 Tablet ORAL DAILY Qty = 7 No Refills Instructions: M, T, W, TH, F, S Comments: NOT GIVEN AT HOSPITAL Warfarin Sodium (Coumadin) 2 MG TABLET 1 Tablet ORAL DAILY Qty = 7 No Refills Instructions: TAKE ONE ON MONDAY Comments: NOT GIVEN AT HOSPITAL Copies To: PAUL SARMIENTO,CR Lawson; SPENCER SARMIENTO,HEIDI; NICOLÁS SARMIENTO,MOR; SONYA SARMIENTO,ROSA Zarate; ZAK SARMIENTO,OLY Lawson Attending MD Review Statement Documenting Attending: HEIDI PALMER MD Other Findings: The patient was seen and discussed with house staff. Appreciate Cardiology and ID input. Cipro would be contraindicated with h/o vtach and prolonged QTc. Dr. Mejia reviewed sensitivities and should be able to discharge on Bactrim/ Augmentin to complete total of 28 days of antibiotics. He will follow-up with surgery (Dr. Shelby) in 2 weeks. He wishes to have surgery prior than planned 12 weeks and will discuss that with surgery. He was advised that when he is ready for surgery that he will require preoperative cardiac evaluation with Dr. Llamas. Of note, his INR is better today. He was advised that Bactrim may elevate the INR and he will most likely require a lower dose of Coumadin and close monitoring as an outpatient. He stated that Dr. Mayer monitors his INR/ Coumadin. CMR given with low dose of coumadin, Patient educated. family bedside at d/c. Patient stable for discharge with instructions given. FOLLOW UP 1. PCP in 1 week of d/c 2. Surgery as scheduled for elective holecytectomy 3. Cardiology Dr Llamas in 1 week 4. ID in 2-3 weeks of d/c.
== END 2017-04-07 12:11 | DRG 871 ==
LOC: ERH 18:24 → ERHI 22:59 → 1NO 22:59 → CRI 22:59 → ENRESERV 03-30 05:02 → CRI 03-30 06:39 → 1NO 04-01 19:06
PROVIDERS: Emergency Medicine; Internal Medicine; Internal Medicine Cardiovascular Disease; Internal Medicine Infectious Disease; Internal Medicine Interventional Cardiology; Physician Assistant; Student in an Organized Health Care Education/Training Program; ADMIT Internal Medicine
PROC: 0F9430Z Drainage of Gallbladder with Drainage Device, Percutaneous Approach (ICD-10-PCS; principal; 2017-03-30)
PROC: 30233K1 Transfusion of Nonautologous Frozen Plasma into Peripheral Vein, Percutaneous Approach (ICD-10-PCS; 2017-03-30)
PROC: B24BZZ4 Ultrasonography of Heart with Aorta, Transesophageal (ICD-10-PCS; 2017-04-04)
DX: A41.59 Other Gram-negative sepsis (principal); I50.23 Acute on chronic systolic (congestive) heart failure; I47.2 Ventricular tachycardia; K81.0 Acute cholecystitis; I24.8 Other forms of acute ischemic heart disease; I48.92 Unspecified atrial flutter; I25.5 Ischemic cardiomyopathy; I11.0 Hypertensive heart disease with heart failure; I25.10 Atherosclerotic heart disease of native coronary artery without angina pectoris; I35.0 Nonrheumatic aortic (valve) stenosis; R79.1 Abnormal coagulation profile; Z79.01 Long term (current) use of anticoagulants; E78.5 Hyperlipidemia, unspecified; Z95.1 Presence of aortocoronary bypass graft; K57.90 Diverticulosis of intestine, part unspecified, without perforation or abscess without bleeding; Z95.810 Presence of automatic (implantable) cardiac defibrillator; Z87.891 Personal history of nicotine dependence; I48.0 Paroxysmal atrial fibrillation; I44.7 Left bundle-branch block, unspecified; Z66 Do not resuscitate
CPT/HCPCS: 1NP; 87075; CCU; ERO; 36415; 74174; 75989; 81001; 82436; 87040; 87071; 87086; 87147; 88305; 93005; 93010; 93325; 96374; 96375; 97110-GO; 97116-GO; 97161-GP; 97530-GO; 99291; J0131; J0456; J0696; J0713; J1644; J1940; J2060; J2250; J3370; J7040; J7042; J7060